=== PATIENT | male | born 1940 | race Caucasian/White ===

== ENCOUNTER 2019-09-19 21:49 | Emergency (ER) | payer MEDICARE, SELFPAY ==
[2019-09-19 21:50] VITALS: BP 161/87; PULSE 89; RESP 18; TEMP 36.7; O2SAT 95; BMI 32.3
--- NOTE | 2019-09-19 22:02 | ED.DCSUM_ITS ---
History of Present Illness Chief Complaint: Abd Pain Informant: Patient Onset: Today Current Severity: Mild Maximum Severity: Mild Narrative: Patient presents secondary to abdominal pain and inability to urinate or have a bowel movement. Patient states that he had a normal bowel movement yesterday. This morning he might have a bowel movement but was not able to pass any stool. He has also not been able to pass urine in the last 14 hours. Patient denies fever or chills. He states there was 1 time previously approximate 4 years ago that he had similar symptoms. They attributed it to patient taking pain medicat ion for a broken finger at that time. - Past Medical History (1) Hypertension Status: Chronic (2) High cholesterol Status: Chronic Past Medical History - Allergies and Home Meds Allergies/Adverse Reactions: Allergies No Known Allergies Allergy (Verified 09/19/19 21:52) Primary Care Physician: Leoncio Amato MD [Primary Care Provider] - Prior records reviewed: Yes Smoking Status: Never smoker Review of Systems General: Denies: Chills, Fever Eyes: Denies: Visual changes - bilaterally ENT: Denies: Bilateral ear pain Cardiovascular: Denies: Chest pain Respiratory: Denies: Dyspnea, Cough Gastrointestinal: Reports: Abdominal pain. Denies: Nausea, Vomiting, Diarrhea Genitourinary: Denies: Dysuria Musculoskeletal: Denies: Swelling, Extremity Pain Skin: Denies: Rash Neurological: Denies: Headache Hematologic: Denies: Easy bruising, Easy bleeding Allergy: Denies: Uticaria Physical Exam Vital Signs/Narrative: Vital Signs Temp Pulse Resp BP Pulse Ox 09/19/19 21:50 98.0 F 89 18 161/87 H 95 Inital Vital Signs reviewed: Yes General: Well nourished, Well developed Head: Normocephalic ENT: Moist mucous membranes Neck: Supple Cardiovascular: Regular rate, Regular rhythm Respiratory: No distress, CTA bilaterally Abdomen: Soft, Tender - Lower abdominal tenderness., Hypoactive bowel sounds. Negative for: Guarding Extremities: Nontender Skin: Normal color Neurological: Alert, Oriented x3 Psychological: Normal affect Diagnostic/Tx/Re-eval Laboratory Results 09/19/19 22:20 Urine Color Yellow Urine Clarity Clear Urine pH 6.5 Ur Specific [place] 1.010 Urine Protein Negative Urine Glucose (UA) Normal Urine Ketones Negative Urine Occult Blood Negative Urine Nitrite Negative Urine Bilirubin Negative Urine Urobilinogen Normal Ur Leukocyte Esterase Negative Urine RBC 0 SEEN Urine WBC 0 SEEN Ur Squamous Epith Cells 0 SEEN Urine Bacteria 0 SEEN Urine Mucus 0 SEEN - Medical Decision Making Bladder scan was performed at bedside and showed greater than 200 cc. Noriega catheter was placed without difficulty by nursing staff. He immediately had 1200 cc of urine drained. Urinalysis is unremarkable. Patient states he no longer has the sensation that he needs have a bowel movement. His medication list is reviewed. He does take Zyrtec but as an antihistamine this is not as likely as others to cause urinary retention. He denies taking Benadryl or any other medications recently. Leg bag will be provided and patient will follow-up Dr. Ferguson next week. ED Disposition - Plan for ED Patient: Disposition: Home or Assisted Living Diagnosis: Urinary retention Instructions: ED Urinary Retention Male Referrals: Leoncio Amato MD [Primary Care Provider] - Wei Ferguson MD [STAFF PHYSICIAN] - 3-5 Days
[2019-09-19 22:27] LABS: Bacteria 0 SEEN /hpf (None Seen); Mucous, Urine 0 SEEN /hpf (<or=2+); Red Blood Cells-Urine 0 SEEN /hpf (0-5); Squamous Epithelial Cells - UA 0 SEEN /hpf (0-5); White Blood Cells 0 SEEN /hpf (0-5)
[2019-09-19 22:32] LABS: Color, Urine Yellow (Yellow); Glucose, Dipstick Normal (Normal); Ketone-Dipstick Negative (Negative); Leukocyte Esterase-Dipstick Negative /ul (Negative); Nitrite-Dipstick Negative (Negative); Occult Blood-Urine Negative /ul (Negative); Protein-Dipstick Negative (Negative); Urine Bilirubin Dipstick Negative (Negative); Urine Clarity Clear (Clear); Urine Urobilinogen Normal (Normal); Urine pH 6.5 (5.0 - 8.0)
[2019-09-19 23:01] VITALS: BP 154/78; PULSE 81; RESP 17; O2SAT 98
== END 2019-09-19 23:05 | disposition home or self-care (01) ==
LOC: ED 23:04
PROVIDERS: Emergency Provider Emergency Medicine; PCP Family Medicine
DX: R33.9 Retention of urine, unspecified (principal); I10 Essential (primary) hypertension; E78.00 Pure hypercholesterolemia, unspecified
CPT/HCPCS: 51702; 81001; 99283

== ENCOUNTER 2024-11-03 09:42 | Emergency (ER) | payer MEDICARE, SELFPAY ==
[2024-11-03 09:43] VITALS: BP 126/71; PULSE 81; RESP 18; TEMP 36.7; O2SAT 97; BMI 32.6
[2024-11-03 09:45] VITALS: BP 126/71; PULSE 81; RESP 16; TEMP 36.7; O2SAT 97
--- NOTE | 2024-11-03 10:05 | EKG12_ITS ---
Test Reason : FLU LIKE SYMPTOMS Blood Pressure : */* mmHG Vent. Rate : 74 BPM Atrial Rate : 74 BPM P-R Int : 174 ms QRS Dur : 102 ms QT Int : 388 ms P-R-T Axes : 59 42 51 degrees QTcB Int : 430 ms Normal sinus rhythm Normal ECG Confirmed by REMEDIOS CERVANTES, JOSE DE JESUS ([id number]), assistant production editor EDSON LIRIANO ([id number]) on 11/05/2024 7:45:57 AM Referred By: REYNALDO Confirmed By: JOSE DE JESUS WHITTAKER MD
--- NOTE | 2024-11-03 10:13 | EX.ED.DYSGE1 ---
HPI History of Present Illness Chief Complaint: General Illness Narrative Narrative: 84-year-old male past medical history of hypertension, seasonal allergies, presents from urgent care at their direction for cough, shortness of breath, and upper respiratory infection type symptoms. He relates history that his symptoms began on Monday, 2 days ago. He started sneezing, and has occasional cough. He states that he began having watery eyes and rhinorrhea. He states that he attempted to treat those and go to bed. However, he developed a headache at 3:00 in the morning with more sinus congestion. He had to sleep upright. While his headache improved, he could not fall asleep. He has a nonproductive cough but no fever. He states that he has not been feeling well over the last 48 hours, he went to urgent care, and he states they asked him a few questions and sent him to the emergency department. No exacerbating or alleviating factors. [facility] Home Medications ?Medication ?Instructions ?Recorded ?Last Taken ?Type acetaminophen 500 mg tablet 500 mg PO TID PRN fever or pain 11/03/24 11/03/24 History aspirin 81 mg tablet,delayed 81 mg PO DAILY 11/03/24 11/03/24 History release (Adult Aspirin Regimen) atorvastatin 80 mg tablet 80 mg PO DAILY 11/03/24 11/03/24 History cetirizine 10 mg tablet (24Hour 10 mg PO DAILY 11/03/24 11/03/24 History Allergy) diltiazem HCl 180 mg 180 mg PO DAILY 11/03/24 11/03/24 History capsule,extended release 24 hr ezetimibe 10 mg tablet 10 mg PO DAILY 11/03/24 11/03/24 History hydrochlorothiazide 12.5 mg capsule 12.5 mg PO DAILY 11/03/24 11/03/24 History isosorbide mononitrate 30 mg 15 mg PO DAILY 11/03/24 11/03/24 History tablet,extended release 24 hr losartan 50 mg tablet 50 mg PO DAILY 11/03/24 11/03/24 History nirmatrelvir 300 mg (150 mg See Rx Instructions PO .COMPLEX 11/03/24 Unknown Rx x2)-ritonavir 100 mg tablet,dose #30 tabs pack (Paxlovid) triamcinolone acetonide 0.1 % 1 applic topical BID 11/03/24 11/02/24 History topical cream Allergy/AdvReac Type Severity Reaction Status Date / Time No Known Allergies Allergy Verified 11/03/24 09:46 Social History Smoking Status: Never smoker ROS ROS ED ROS Narrative Review of systems positive for sneezing, nasal congestion and rhinorrhea. Nonproductive cough. Mild shortness of breath. No chest pain, no leg swelling, no nausea or vomiting. He endorses lightheadedness that is intermittent as well. EXAM Physical Exam Narrative Exam Narrative: Afebrile. Vital signs noted. Nontoxic-appearing. Cardiovascular examination reveals regular rate and rhythm. Lungs are clear to auscultation bilaterally. Abdomen soft, nontender, without guarding or rebound. Positive bowel sounds. Neurological examination nonfocal, nonlateralizing. No appreciable pedal edema. HEENT examination grossly unremarkable, no purulent rhinorrhea. Const Vital Signs: 11/03/24 09:43 11/03/24 09:45 11/03/24 11:42 Temperature 98.1 F 98.1 F Temperature Source Oral Oral Pulse Rate 81 81 77 Respiratory Rate 18 16 19 H Blood Pressure 126/71 H 126/71 H 97/79 Blood Pressure Mean 89 89 85 Pulse Ox 97 97 97 Oxygen Delivery Method Room Air Room Air 11/03/24 12:01 Temperature 98 F Temperature Source Pulse Rate 76 Respiratory Rate 19 H Blood Pressure 103/59 L Blood Pressure Mean 73 Pulse Ox 97 Oxygen Delivery Method MDM MDM MDM Narrative Medical decision making narrative: Differential diagnosis includes but not limited to dehydration versus other electrolyte abnormality for his lightheadedness versus intravascular volume depletion. For his shortness of breath and cough, he may have more bronchitis versus pneumonia. I have low suspicion for pneumothorax because the history and physical does not support this. I also have lower suspicion for ACS. Is not having chest pain. EKG was obtained and interpreted by myself independently as normal sinus rhythm at 74 bpm without ectopy or acute ST changes. No STEMI. QTc normal at 430 ms. Chest x-ray will be obtained in 2 views as well as COVID, influenza, and RSV swab. I will check basic laboratories as well to check for anemia versus dehydration versus other electrolyte imbalance. I reviewed his laboratory work and he has normal white count of 6.1 with hemoglobin 12.2 and hematocrit 35.2, platelet count normal at 194. Electrolyte panel is significant for BUN of 29 and creatinine 1.68, glucose 98, LFTs show alk phos elevated at 144 which I think is nonspecific. Chest x-ray interpreted by myself independently shows no consolidation or pneumothorax. I reviewed the radiology report which confirms my independent interpretation but comments on vascular congestion. I added a BNP which is only slightly elevated to 281 but not consistent with florid CHF. I reviewed his respiratory swab and he has positive for COVID. I discussed with him the use of an antiviral as he is within 5 days. I wrote him a prescription for Paxlovid, but urged him to check with the pharmacist regarding any contraindications or drug to drug interactions. Otherwise, treatment be symptomatic with Tylenol or ibuprofen as needed for pain and fever, drink plenty of oral fluids, follow-up with primary care in 1 week if not improving. Return instructions to the emergency department were reviewed. Disposition is discharged home in stable condition. History & Record Review Discussion w/independent historian: Patient Lab Data Attestation: I reviewed the patient's lab results. Labs: Laboratory Results - last 24 hr 11/03/24 10:15 WBC 6.1 RBC 3.92 L Hgb 12.2 L Hct 35.2 L MCV 89.8 MCH 31.1 MCHC 34.7 RDW Std Deviation 46.3 H RDW Coeff of Stu 14.0 Plt Count 194 MPV 10.4 Immature Gran % (Auto) 0.300 Neut % (Auto) 63.3 Lymph % (Auto) 20.1 [place] % (Auto) 13.9 H Eos % (Auto) 1.3 Baso % (Auto) 1.1 H Absolute Neuts (auto) 3.9 Absolute Lymphs (auto) 1.23 Nucleated RBC % 0 Sodium 137 Potassium 3.4 Chloride 101 Carbon Dioxide 22.8 Anion Gap 13 BUN 29 H Creatinine 1.68 H Estim Creat Clear Calc 38.90 L Est GFR (MDRD) Non-Af 40 L BUN/Creatinine Ratio 17.4 Glucose 98 Calcium 8.9 Total Bilirubin 0.63 AST 20 ALT 17 Alkaline Phosphatase 144 H NT pro BNP II 281 Total Protein 7.1 Albumin 4.0 Globulin 3.2 Albumin/Globulin Ratio 1.3 Radiography Diagnostic Testing: Clinical Impression(s) from Imaging Studies Chest X-Ray 11/03/24 10:20 IMPRESSION: Findings compatible with CHF/volume overload. Reading Location: [facility] Discharge Plan Triage Chief Complaint: General Illness ED Provider: Teofilo Bragg Dx/Rx/DC Orders Clinical Impression: COVID, Viral syndrome Instructions: Coronavirus Disease 2019 (COVID-19): Caring for Yourself or Others, ED Viral Syndrome (Adult) Prescriptions: New Paxlovid 300 mg (150 mg x 2)-100 mg tablets,dose pack See Rx Instructions .ROUTE .COMPLEX Qty: 30 0RF Rx Instructions: take TWO 150 mg tablets of nirmatrelvir with ONE 100 mg tablet of ritonavir twice daily for 5 days No Action hydrochlorothiazide 12.5 mg capsule 12.5 mg PO DAILY atorvastatin 80 mg tablet 80 mg PO DAILY diltiazem HCl 180 mg capsule,extended release 24hr 180 mg PO DAILY ezetimibe 10 mg tablet 10 mg PO DAILY aspirin [Adult Aspirin Regimen] 81 mg tablet,delayed release (DR/EC) 81 mg PO DAILY losartan 50 mg tablet 50 mg PO DAILY isosorbide mononitrate 30 mg tablet extended release 24 hr 15 mg PO DAILY triamcinolone acetonide 0.1 % cream 1 applic topical BID cetirizine [24Hour Allergy] 10 mg tablet 10 mg PO DAILY acetaminophen 500 mg tablet 500 mg PO TID PRN (Reason: fever or pain) Primary Care Provider: Leoncio Amato Referrals: Leoncio Amato MD [Primary Care Provider] - 1 Week if not improving Activity Restrictions/Additional Instructions: Take Paxlovid as directed. Drink plenty of oral fluids. Tylenol or ibuprofen as needed for fever or pain. Follow-up with your primary care provider in 1 week if not improving. Return with increased difficulty breathing, new or worsening symptoms. Print Language: Ecuadorean Disposition Disposition: Home, Self Care Discharge Date/Time: 11/03/24 12:12
--- NOTE | 2024-11-03 10:20 | RAD_ITS ---
PROCEDURE: CHEST PA AND LATERAL 11/03/2024 REASON FOR EXAM: SHORTNESS OF BREATH, COUGH TECHNIQUE: CHEST PA AND LATERAL COMPARISON: None. FINDINGS: Hardware: None. Heart: Mild cardiomegaly with pulmonary vascular congestion. Mediastinum: There are atherosclerotic calcifications of the thoracic aorta. Lungs: Elevation of the left hemidiaphragm. Probable small left pleural effusion. No focal consolidation or pneumothorax. Bones: Degenerative changes are identified within the thoracic spine. RAD/Chest PA and Lateral IMPRESSION: Findings compatible with CHF/volume overload. Reading Location: [id number]
[2024-11-03 10:21] LABS: Absolute Lymphocyte Count 1.23 X10^3/uL (0.83-4.51); Absolute Neutrophil Count 3.9 X10^3/uL (2.0-7.7); Basophil# 0.07 X10^3/uL; Basophil% 1.1 % (0-1); Eosinophil# 0.08 X10^3/uL; Eosinophils% 1.3 % (0-5); Hematocrit 35.2 % (40-54); Hemoglobin 12.2 g/dL (13.0-16.5); Lymphocyte # 1.23 X10^3/ul (0.83-4.51); Lymphocyte % 20.1 % (19-41); Mean Corp Hgb Conc 34.7 g/dL (32-36); Mean Corpuscular Hgb 31.1 pg (27.0-32.0); Mean Corpuscular Volume 89.8 fL (80-94); Mean Platelet Vol. 10.4 fl (6.2-12.0); Monocyte# 0.85 X10^3/uL; Monocyte% 13.9 % (0-10); NRBC Flagged by Analyzer 0 % (0-5); Neutrophil # 3.87 X10^3/uL (2.7-7.7); Neutrophil % 63.3 % (47-70); Platelet Count 194 K/mm3 (150-450); RBC Distribution Width SD 46.3 fl (35.1-43.9); Red Blood Count 3.92 M/mm3 (4.6-6.2); White Blood Count 6.1 K/mm3 (4.4-11.0)
--- OUTSIDE RECORDS SUMMARY | 2024-11-03 10:23 | XMS RPT_ITS | CCD ---
Author Organization [facility] Care Team Providers Care Nurse Clinical Name Role Phone Leoncio Chavez MD Primary Care Provider PROVIDER, UNKNOWN Attending Unavailable PROVIDER, UNKNOWN Referring Unavailable PROVIDER, UNKNOWN Primary Care Unavailable PROVIDER, UNKNOWN Attending Unavailable PROVIDER, UNKNOWN Primary Care Unavailable PROVIDER, UNKNOWN Attending Unavailable PROVIDER, UNKNOWN Primary Care Unavailable Leoncio Chavez MD Primary Care Provider [phone] Haley DIRECTOR GEOTHERMAL OPERATIONS.Kedar HARRIS Unavailable Angy Luciano PA-C Unavailable Leoncio Chavez MD Primary Care Provider [phone] Haley DIRECTOR GEOTHERMAL OPERATIONS.Kedar HARRIS Unavailable Angy Luciano PA-C Unavailable JAMES QUICK Attending Unavailab LEONCIO Bourgeois Primary Care Unavailable LEONCIO CHAVEZ Referring Unavailable LEONCIO CHAVEZ Primary Care Unavailable KEDAR DE LEON Attending Unavailable LEONCIO CHAVEZ Primary Care Unavailable FLORENCIA VENTURA Attending Unavailable LEONCIO CHAVEZ Primary Care Unavailable ANGY LUCIANO Attending Unavailable LEONCIO CHAVEZ Primary Care Unavailable LEONCIO CHAVEZ Referring Unavailable LEONCIO CHAVEZ Primary Care Unavailable LEONCIO CHAVEZ Attending Unavailable LEONCIO CHAVEZ Primary Care Unavailable Allergies Allergy Classification Reported Allergen(s) Allergy Type Date of Onset Reaction(s) Facility (20 sources) Seasonal allergy; Translations: [SEASONAL ALLERGIES] Allergy to substance 2 Other: See Comments, Intolerance [facility] Work Phone: Medications Current Medications Medication Drug Class(es) Dates Sig (Normalized) Sig (Original) aspirin 81 mg delayed release oral tablet (20 sources) Platelet Aggregation Inhibitor, Nonsteroidal Anti-inflammatory Drug Start: 12-02-2020 take 1 tablet by mouth once daily aspirin, enteric coated (ASPIRIN, ENTERIC COATED) 81 mg EC tablet Take 1 tablet by mouth once daily. 12/02/2020 Active Comment on above: Take 1 tablet by aliyah th once daily. atorvastatin 80 mg oral tablet (20 sources) HMG-CoA Reductase Inhibitor Start: 06-07-2023 End: 06-08-2024 take 1 tablet by mouth once daily atorvastatin (LIPITOR) 80 mg tablet Take 1 tablet by mouth once daily. 90 tablet 3 06/08/2024 Active Start: 09-02-2022 take 1 tablet by aliyah th once daily atorvastatin (LIPITOR) 80 mg tablet Take 1 tablet by mouth once daily. 90 tablet 3 09/02/2022 Active Start: 12-02-2020 End: 11-18-2021 take 1 tablet by mouth once daily atorvastatin (LIPITOR) 80 mg tablet Indications: Mixed hyperlipidemia Take 1 tablet by mouth once daily. 90 tablet 3 11/19/2021 Active Comment on above: Take 1 tablet by aliyah once daily. cetirizine hydrochloride 10 mg oral tablet (20 sources) Histamine-1 Receptor Antagonist Start: 6 take 1 tablet by mouth once daily cetirizine (ZYRTEC) 10 mg tablet Take 1 tablet by mouth once daily. 90 tablet 2 12/01/2015 Active Comment on above: Take 1 tablet by aliyah once daily. 24 hr dilTIAZem hydrochloride 180 mg extended release oral capsule (20 sources) Calcium Channel Darrius Start: 5 take 1 capsule by mouth once daily dilTIAZem CD (CARDIZEM CD) 180 mg 24 hr capsule Take 1 capsule by mouth once daily. 90 capsule 1 06/08/2024 Active Start: 06-07-2023 End: 06-08-2024 take 1 capsule by mouth once daily dilTIAZem CD (CARDIZEM CD) 240 mg 24 hr capsule Take 1 capsule by mouth once daily. 90 capsule 3 06/07/2023 06/08/2024 Discontinued Start: 09-02-2022 take 1 capsule by mo [facility] once daily dilTIAZem CD (CARDIZEM CD) 240 mg 24 hr capsule Take 1 capsule by mouth once daily. 90 capsule 3 09/02/2022 Active Start: 12-02-2020 End: 11-18-2021 take 1 capsule by mouth once daily dilTIAZem CD (CARDIZEM CD) 240 mg 24 hr capsule Indications: Chronic diastolic CHF (congestive heart failure) (HCC) Take 1 capsule by mouth once daily. 90 capsule 3 11/19/2021 Active Comment on above: Take 1 capsule by mo [facility] once daily. ezetimibe 10 mg oral tablet (16 sources) Dietary Cholesterol Absorption Inhibitor Start: 2023 End: 2024 take 1 tablet by mouth once daily ezetimibe (ZETIA) 10 mg tablet Indications: Mixed hyperlipidemia Take 1 tablet by mouth once daily. 90 tablet 1 06/08/2024 Active Comment on above: Take 1 tablet by [facility] once daily. hydroCHLOROthiazide 12.5 mg oral capsule (20 sources) Thiazide Diuretic Start: 2023 End: 2024 take 1 capsule by mouth once daily hydroCHLOROthiazide 12.5 mg capsule Take 1 capsule by mouth once daily. 90 capsule 3 07/23/2024 Active Start: 09-02-2022 take 1 capsule by [facility] once daily hydroCHLOROthiazide 12.5 mg capsule Take 1 capsule by mouth once daily. 90 capsule 3 09/02/2022 Active Start: 12-02-2020 End: 11-18-2021 take 1 capsule by mouth once daily hydroCHLOROthiazide (HYDRODIURIL, ESIDRIX) 12.5 mg capsule Indications: Chronic diastolic CHF (congestive heart failure) (HCC) Take 1 capsule by mouth once daily. 90 capsule 3 11/19/2021 Active Comment on above: Take 1 capsule by [facility] once daily. hypromellose 3 mg/ml ophthalmic solution (20 sources) Start: 03-21-2012 artificial tear, Hypromellose, (GENTEAL MODERATE) 0.3 % Drop Use 1 Drop in both eyes as needed. 0 03/21/2012 Active Start: 03-21-2012 artificial tea r, Hypromellose, (GENTEAL MODERATE) 0.3 % Drop Use 1 Drop in both eyes as needed. 0 03/21/2012 Active Comment on above: Use 1 Drop in both e yes as needed. 24 hr isosorbide mononitrate 30 mg extended release oral tablet (17 sources) Nitrate Vasodilator Start: 4 End: take 0.5 tablet by mouth once daily isosorbide mononitrate ER (IMDUR) 30 mg 24 hr tablet Indications: Essential hypertension Take 0.5 tablets by mouth once daily. 45 tablet 3 06/08/2024 Active Comment on above: Take 0.5 tablets by mouth once daily. ketoconazole 20 mg/ml medicated shampoo (11 sources) Azole Antifungal Start: End: ketoconazole (NIZORAL) 2 % shampoo apply to affected area once daily if needed 120 mL 3 12/30/2022 12/22/2023 Discontinued Start: 10-15-2021 End: 10-15-2022 ketoconazole (NIZORAL) 2 % s hampoo apply to affected area once daily if needed 120 mL 3 10/15/2021 10/15/2022 Active Comment on above: apply to affected ar ea once daily if needed losartan potassium 50 mg oral tablet (20 sources) Angiotensin 2 Receptor Darrius Start: 07-05-2024 take 1 tablet by mouth once daily losartan (COZAAR) 50 mg tablet Take 1 tablet by mouth once daily. 90 tablet 1 07/05/2024 Active Start: 06-07-2023 End: 07-05-2024 take 1 tablet by mouth once daily losartan (COZAAR) 100 mg tablet Take 1 tablet by mouth once daily. 90 tablet 3 06/08/2024 07/05/2024 Discontinued (Adjust Sig - Block E-Cancel) Start: 09-02-2022 take 1 tablet by aliyah th once daily losartan (COZAAR) 100 mg tablet Take 1 tablet by mouth once daily. 90 tablet 3 09/02/2022 Active Start: 12-02-2020 End: 11-18-2021 take 1 tablet by mouth once daily losartan (COZAAR) 100 mg tablet Indications: Chronic diastolic CHF (congestive heart failure) (HCC) Take 1 tablet by mouth once daily. 90 tablet 3 11/19/2021 Active Comment on above: Take 1 tablet by aliyah th once daily. omega-3 fatty acids 1,000 mg cap (20 sources) Start: 06-20-2018 take 1 capsule by mouth once daily omega-3 fatty acids 1,000 mg cap Take 1 capsule by mouth once daily. 06/20/2018 Active Start: 06-20-2018 take 1 capsule by mo [facility] once daily omega-3 fatty acids 1,000 mg cap Take 1 capsule by mouth once daily. 0 06/20/2018 Active Comment on above: Take 1 capsule by mo [facility] once daily. triamcinolone acetonide 1 mg/ml topical cream (1 source) Corticosteroid Start: 10-28-2024 End: 11-11-2024 triamcinolone acetonide (KENALOG) 0.1 % cream Apply to affected area two times a day for 14 days. 30 g 10/28/2024 11/11/2024 Active Completed/Discontinued Medications Medication Drug Class(es) Dates Sig (Normalized) Sig (Original) ibuprofen 200 mg oral tablet (18 sources) Nonsteroidal Anti-inflammatory Drug Start: 07-14-2015 End: 06-11-2024 take 200-400 mg by mouth every six hours as needed ibuprofen (MOTRIN) 200 mg tablet Take 1-2 tablets by mouth every 6 hours as needed for Pain (Take with food.). 0 07/14/2015 06/11/2024 Discontinued (Clinical Decision) Comment on above: Take 1-2 tablets by mouth every 6 hours as needed for Pain (Take with food.). Problems Active Problems Problem Classification Problem Date Documented Da te Episodic/Chronic Allergic reactions (1 source) Irritant contact dermatitis due to plant; Translations: [Irritant contact dermatitis due to plants, except food] 10-28-2024 Episodic Chronic kidney disease (7 sources) Chronic kidney disease stage 3A ; Translations: [Stage 3a chronic kidney disease (HCC)] Onset: 06-11-2024 06-11-2024 Chronic Congestive heart failure; nonhypertensive (20 sources) Chronic diastolic heart failure; Translations: [Chronic diastolic (congestive) heart failure] Onset: 09-03-2019 09-03-2019 Chronic Coronary atherosclerosis and other heart disease (20 sources) Coronary atherosclerosis; Translations: [Atherosclerotic heart disease of [place] coronary artery without angina pectoris] Onset: 05-27-2015 06-24-2019 Chronic Deficiency and other anemia (20 sources) Anemia of chronic disease; Translations: [Anemia in other chronic diseases classified elsewhere] Onset: 10-16-2021 Chronic Deficiency and other anemia (1 source) Anemia in other chronic diseases classified elsewhere; Translations: [Anemia of chronic disease] Onset: 10-16-2021 Chronic Disorders of lipid metabolism (20 sources) Mixed hyperlipidemia; Translations: [Mixed hyperlipidemia] Onset: 12-23-2019 Resolved: 12-23-2019 12-23-2019 Chronic Essential hypertension (20 sources) Essential hypertension; Translations: [Essential (primary) hypertension] Onset: 05-27-2015 05-27-2015 Chronic Hyperplasia of prostate (20 sources) Benign prostatic hyperplasia; Translations: [Benign prostatic hyperplasia without lower urinary tract symptoms] Onset: 05-27-2015 07-07-2015 Chronic Other circulatory disease (1 source) Abnormal foot pulse; Translations: [Other specified symptoms and signs involving the circulatory and respiratory systems] 06-23-2023 Episodic Other diseases of kidney and ureters (1 source) Renal impairment; Translations: [Disorder of kidney and ureter, unspecified] 11-28-2022 Episodic Other ear and sense organ disorders (1 source) Impacted cerumen of bilateral ears; Translations: [Impacted cerumen, bilateral] Episodic Other inflammatory condition of skin (20 sources) Rosacea; Translations: [Rosacea, unspecified] 05-31-2016 Chronic Other inflammatory condition of skin (20 sources) Pityriasis simplex; Translations: [Seborrhea capitis] 05-31-2016 Episodic Other nutritional; endocrine; and metabolic disorders (17 sources) Obese class II; Translations: [Obesity, unspecified] Onset: 06-07-2023 06-07-2023 Chronic Other nutritional; endocrine; and metabolic disorders (1 source) Obesity, unspecified; Translations: [Obesity, Class II, BMI 35-39.9] Onset: 06-07-2023 Chronic Other nutritional; endocrine; and metabolic disorders (1 source) Weight gain; Translations: [Abnormal weight gain] Episodic Other skin disorders (1 source) Ingrowing nail of toe of left foot; Translations: [Ingrowing nail] 06-08-2024 Episodic Other upper respiratory disease (20 sources) Chronic rhinitis; Translations: [Chronic rhinitis] Onset: 08-27-2012 05-27-2015 Chronic Residual codes; unclassified (20 sources) Obstructive sleep apnea syndrome; Translations: [Obstructive sleep apnea (adult) (pediatric)] 12-23-2019 Chronic Residual codes; unclassified (2 sources) Obstructive sleep apnea (adult) (pediatric); Translations: [Obstructive sleep apnea] Onset: 12-23-2019 Chronic Past or Other Problems Problem Classification Problem Date Documented Da te Episodic/Chronic Administrative/social admission (20 sources) Advance directive discussed with patient; Translations: [Other specified counseling] Onset: 05-27-2022 Episodic Diabetes mellitus without complication (20 sources) High hemoglobin A1c level; Translations: [Other abnormal glucose] Onset: 06-20-2018 Resolved: 06-08-2024 06-20-2018 Episodic Hemorrhoids (20 sources) External hemorrhoids; Translations: [Residual hemorrhoidal skin tags] Onset: 12-20-2018 12-23-2019 Episodic Immunizations and screening for infectious disease (1 source) Encounter for immunization; Translations: [Encounter for immunization] Onset: 06-08-2024 Episodic Other aftercare (20 sources) Patient encounter status; Translations: [Other joint terminal attack controller (current) drug therapy] Onset: 06-30-2020 06-30-2020 Episodic Other aftercare (1 source) Other joint terminal attack controller (current) drug therapy; Translations: [Medication management] Onset: 06-30-2020 Episodic Other circulatory disease (1 source) Other specified symptoms and signs involving the circulatory and respiratory systems; Translations: [Decreased pulses in feet] Onset: 06-09-2023 Episodic Other lower respiratory disease (1 source) Other forms of dyspnea; Translations: [RAMOS (dyspnea on exertion)] Onset: 06-09-2023 Episodic Other male genital disorders (20 sources) Disorder of prostate; Translations: [Disorder of prostate, unspecified] Onset: 05-27-2015 05-27-2015 Episodic Other screening for suspected conditions (not mental disorders or infectious disease) (20 sources) Raised prostate specific antigen; Translations: [Elevated prostate specific antigen [PSA]] Onset: 06-08-2015 12-23-2019 Episodic Other upper respiratory disease (12 sources) Allergic rhinitis; Translations: [Allergic rhinitis, unspecified] Resolved: 08-27-2012 08-27-2012 Chronic Residual codes; unclassified (10 sources) Finding of systemic arterial pressure; Translations: [Other general symptoms and signs] Onset: 01-30-2024 01-30-2024 Episodic Screening and history of mental health and substance abuse codes (20 sources) Ex-smoker; Translations: [Personal history of nicotine dependence] Onset: 12-20-2018 12-20-2018 Episodic Results Test Name Value Interpretation Reference Range Facility [facility] 10-28-2024 CNOV Office Visit (FAMPWS ) YVONNE JONES ([id number]) 1940 Date Time Provider Department 10/28/24 3:00 PM FLORENCIA VENTURA During your visit today, we recorded the following information about you: Pulse Respiration Blood pressure Weight 71/minute 18/minute 96/56 100.7 kg Florencia Ventura APRN.SYSTEMS TRAINER 10/28/2024 3:29 PM Signed 10/28/2024 Patient presents with: Rash: To left arm x2 weeks Recording using [employer] software for draft documentation of the visit was discussed with the patient/authorized technical service representative; all questions welcomed and answered. Patient/authorized technical service representative agreed to proceed SUBJECTIVE: This is a 84 year old that is here today for Above Complaints.. Rash: - Rash on the left inner arm, onset 2 weeks ago. - Initially localized, has spread about half an inch in all directions. - Described as feeling like a sunburn. - Some areas formed vesicles that drained clear fluid. - No known sensitivity to poison yanique; denies sunburn. - Rash began on a Monday morning, with additional lesions appearing the following day and subsequently. - Denies applying any topical treatments. - Denies fever or chills. - No new medications started; began taking Benadryl a week ago without improvement. - No rash on the face, eyes, or head. - Denies exposure to new plants or substances; has been mowing the lawn every other day. 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 Breana Linder Diastolic dysfunction 2012 Elevated hemoglobin A1c 06/20/2018 Elevated PSA 06/08/2015 Essential hypertension Ex-smoker 12/20/2018 Started around age 17 up to 2 cigs quit around 18. External hemorrhoid 12/20/2018 Medicare annual wellness visit, subsequent 12/02/2016 Medicare part B: 04/21/2007 last done: 12/23/2019 Mixed hyperlipidemia Obesity, Class II, BMI 35-39.9 06/07/2023 Obstructive sleep apnea Rosacea ALLERGIES Seasonal Allergies MEDICATIONS Current Outpatient Medications Medication Sig triamcinolone acetonide (KENALOG) 0.1 % cream Apply to affected area two times a day for 14 days. hydroCHLOROthiazide 12.5 mg capsule Take 1 capsule by mouth once daily. losartan (COZAAR) 50 mg tablet Take 1 tablet by mouth once daily. ezetimibe (ZETIA) 10 mg tablet Take 1 tablet by mouth once daily. isosorbide mononitrate ER (IMDUR) 30 mg 24 hr tablet Take 0.5 tablets by mouth once daily. dilTIAZem CD (CARDIZEM CD) 180 mg 24 hr capsule Take 1 capsule by mouth once daily. atorvastatin (LIPITOR) 80 mg tablet Take 1 tablet by mouth once daily. aspirin, enteric coated (ASPIRIN, ENTERIC COATED) 81 mg EC tablet Take 1 tablet by mouth once daily. omega-3 fatty acids 1,000 mg cap Take 1 capsule by mouth once daily. cetirizine (ZYRTEC) 10 mg tablet Take 1 tablet by mouth once daily. artificial tear, Hypromellose, (GENTEAL MODERATE) 0.3 % Drop Use 1 Drop in both eyes as needed. No current facility-administered medications for this visit. Medications and allergies reviewed by this provider. SOCIAL HISTORY Social History Tobacco Use Smoking status: Former Current packs/day: 0.00 Types: Cigarettes Quit date: 03/21/1962 Years since quittin.6 Smokeless tobacco: Never Tobacco comments: total of a dozen cigarettes Vaping Use Vaping status: Never Used Substance Use Topics Alcohol use: Yes Comment: very rare - glass of wine, several times per year Drug use: No REVIEW OF SYSTEMS OBJECTIVE: BP 96/56 Pulse 71 Resp 18 Wt 100.7 kg (222 lb) SpO2 93% BMI 33.26 kg/m? . Vital signs reviewed by this provider. GENERAL: NAD, alert and oriented SKIN: Erythematous rash to left AC area and left radial wrist. Also has scattered scabbed areas to forearm and upper arm. No current vesicle formation, drainage or excessive warmth to areas DTaP,Tdap,Td Vaccine(1 - Tdap) due on 06/08/2025 RSV Vaccine(1 - 1-dose 75+ series) due on 06/08/2025 Shingrix Vaccine(1 of 2) due on 06/08/2025 Depression Screening due on 12/21/2024 Anxiety Screening due on 12/21/2024 LDL Cholesterol due on 06/08/2025 Diabetes Screening due on 06/08/2027 Influenza Vaccine Completed Advance Directive Discussion Completed Covid-19 Vaccine Completed Pneumococcal Vaccine: 50+ Completed Colorectal Cancer Screening Discontinued 1. Irritant contact dermatitis due to plants, except food (L24.7) - Erythematous rash on the left inner arm, with scattered scabbed areas consistent with possible plant dermatitis, such as poison yanique or poison oak. - Initiated top (more content not included)... Normal [facility] YVONNE JONES ([id number]) 1940 M Date Time Provider Department 10/28/24 PODLOGARFLORENCIA During your visit today, we recorded the following information about you: Alfreda Cervantes, RN 10/28/2024 1:53 PM Signed Pt called in and reports he has had a rash on his L elbow x2 weeks. Pt reports he has been taking Benadryl for it. He states he has 3 main patches one on elbow about 2 in x 3 in, forearm 3 in x 1 1/2 in, and by wrist 1 in x 1 in. He states they are red blotches and there are red bumps that are broken open sores that briefly seeped serous fluid. Pt states the arm is mildly warm and itchy. He states he has been mowing the yard every other day, but it started before that. Pt denies starting any new medications or foods recently. Pt scheduled with Florencia Ventura HIDE TRIMMER today at 3 pm. Alfreda Cervantes RN Allergies As of Date: 10/28/2024 Noted Allergy Reaction SEASONAL ALLERGIES 03/21/2012 5 - Intolerance Comments: Testing 06/18/12 negative. Patient still bothered by allergens. grass, pollen, ragweed Date Reviewed: 07/05/2024 Reviewed by: Franck Reyes LPN - Fully Assessed Reason for Visit: Appointment [186] Patient Update [1234] Prescriptions as of 10/28/2024 - hydroCHLOROthiazide 12.5 mg capsule Take 1 capsule by mouth once daily. - losartan (COZAAR) 50 mg tablet Take 1 tablet by mouth once daily. - ezetimibe (ZETIA) 10 mg tablet Take 1 tablet by mouth once daily. - isosorbide mononitrate ER (IMDUR) 30 mg 24 hr tablet Take 0.5 tablets by mouth once daily. - dilTIAZem CD (CARDIZEM CD) 180 mg 24 hr capsule Take 1 capsule by mouth once daily. - atorvastatin (LIPITOR) 80 mg tablet Take 1 tablet by mouth once daily. - aspirin, enteric coated (ASPIRIN, ENTERIC COATED) 81 mg EC tablet Take 1 tablet by mouth once daily. - omega-3 fatty acids 1,000 mg cap Take 1 capsule by mouth once daily. - cetirizine (ZYRTEC) 10 mg tablet Take 1 tablet by mouth once daily. - artificial tear, Hypromellose, (GENTEAL MODERATE) 0.3 % Drop Use 1 Drop in both eyes as needed. Problem List As Of Date 10/28/2024 Noted Resolved Mixed hyperlipidemia [E78.2] 12/23/2019 Essential hypertension [I10] Allergic rhinitis [J30.9] 08/27/2012 Rosacea [L71.9] Dandruff [L21.0] Chronic rhinitis [J31.0] 08/27/2012 Chronic diastolic CHF (congestive heart failure* Coronary artery disease due to lipid rich plaqu*05/27/2015 Benign non-nodular prostatic hyperplasia withou*05/27/2015 Disorder of prostate [N42.9] 05/27/2015 Elevated PSA [R97.20] 06/08/2015 Obstructive sleep apnea [G47.33] Medicare annual wellness visit, subsequent [Z00*12/02/2016 Elevated hemoglobin A1c [R73.09] 06/20/2018 Ex-smoker [Z87.891] 12/20/2018 External hemorrhoid [K64.4] 12/20/2018 Mixed hyperlipidemia [E78.2] Medication management [Z79.899] 06/30/2020 Anemia of chronic disease [D63.8] 10/16/2021 Advance directive discussed with patient [Z71.8*05/27/2022 Obesity, Class II, BMI 35-39.9 [E66.812] 06/07/2023 Prediabetes [R73.03] 01/30/2024 06/08/2024 Abnormal nuclear stress test [R94.39] 01/30/2024 Abnormal ankle brachial index (DIVYA) [R68.89] 01/30/2024 Stage 3a chronic kidney disease (HCC) [N18.31] 06/11/2024 Encounter Status:Closed by ALFREDA CERVANTES on 10/28/24 [facility] YVONNE JONES ([id number]) 1940 M Date Time Provider Department 08/02/24 ANGY LUCIANO [facility] During your visit today, we recorded the following information about you: Angy Luciano PA-C 08/02/2024 11:32 AM Signed Please check with patient on what his BP has been running. Alfreda Cervantes, MIGUEL 08/02/2024 12:09 PM Signed Called and left a detailed voicemail notifying patient of providers message. Clinic phone number was left for the patient to call and answer providers question. Alfreda Cervantes, Tammi Alfaro RN 08/02/2024 12:12 PM Signed Patient calls back and states that BP has been running 130/70. MIGUEL Otto Rayanne, PA-C 08/02/2024 12:21 PM Signed Noted. Allergies As of Date: 08/02/2024 Noted Allergy Reaction SEASONAL ALLERGIES 03/21/2012 5 - Intolerance Comments: Testing 06/18/12 negative. Patient still bothered by allergens. grass, pollen, ragweed Date Reviewed: 07/05/2024 Reviewed by: Franck Reyes LPN - Fully Assessed Reason for Visit: Patient Update [1234] Prescriptions as of 08/02/2024 - hydroCHLOROthiazide 12.5 mg capsule Take 1 capsule by mouth once daily. - losartan (COZAAR) 50 mg tablet Take 1 tablet by mouth once daily. - ezetimibe (ZETIA) 10 mg tablet Take 1 tablet by mouth once daily. - isosorbide mononitrate ER (IMDUR) 30 mg 24 hr tablet Take 0.5 tablets by mouth once daily. - dilTIAZem CD (CARDIZEM CD) 180 mg 24 hr capsule Take 1 capsule by mouth once daily. - atorvastatin (LIPITOR) 80 mg tablet Take 1 tablet by mouth once daily. - aspirin, enteric coated (ASPIRIN, ENTERIC COATED) 81 mg EC tablet Take 1 tablet by mouth once daily. - omega-3 fatty acids 1,000 mg cap Take 1 capsule by mouth once daily. - cetirizine (ZYRTEC) 10 mg tablet Take 1 tablet by mouth once daily. - artificial tear, Hypromellose, (GENTEAL MODERATE) 0.3 % Drop Use 1 Drop in both eyes as needed. Problem List As Of Date 08/02/2024 Noted Resolved Mixed hyperlipidemia [E78.2] 12/23/2019 Essential hypertension [I10] Allergic rhinitis [J30.9] 08/27/2012 Rosacea [L71.9] Dandruff [L21.0] Chronic rhinitis [J31.0] 08/27/2012 Chronic diastolic CHF (congestive heart failure* Coronary artery disease due to lipid rich plaqu*05/27/2015 Benign non-nodular prostatic hyperplasia withou*05/27/2015 Disorder of prostate [N42.9] 05/27/2015 Elevated PSA [R97.20] 06/08/2015 Obstructive sleep apnea [G47.33] Medicare annual wellness visit, subsequent [Z00*12/02/2016 Elevated hemoglobin A1c [R73.09] 06/20/2018 Ex-smoker [Z87.891] 12/20/2018 External hemorrhoid [K64.4] 12/20/2018 Mixed hyperlipidemia [E78.2] Medication management [Z79.899] 06/30/2020 Anemia of chronic disease [D63.8] 10/16/2021 Advance directive discussed with patient [Z71.8*05/27/2022 Obesity, Class II, BMI 35-39.9 [E66.812] 06/07/2023 Prediabetes [R73.03] 01/30/2024 06/08/2024 Abnormal nuclear stress test [R94.39] 01/30/2024 Abnormal ankle brachial index (DIVYA) [R68.89] 01/30/2024 Stage 3a chronic kidney disease (HCC) [N18.31] 06/11/2024 Encounter Status:Closed by ANGY MADDEN on 08/02/24 [facility] CNOVon 07-05-2024 CNOV Office Visit (FAMPWS ) YVONNE JONES ([id number]) 1940 M Date Time Provider Department 07/05/24 8:00 AM ANGY LUCIANO FAMPWS During your visit today, we recorded the following information about you: Temperature Pulse Respiration Blood pressure 97.5 degrees 71/minute 18/minute 96/53 Weight 101.6 kg Angy Luciano PA-C 07/05/2024 8:44 AM Signed Chief Complaint Patient presents with: Follow Up: Blood pressure HPI Yvonne Farley Godfrey is a 84 year old male who presents here today for Above Complaints.. At last visit patient's diltiazem was decreased to 180mg a day due to low bp readings. Patient does not check his bp at home. Last 6 Encounter BP Readings: Date: BP: 07/05/2024 96/53 06/08/2024 98/58 01/30/2024 118/66 12/22/2023 108/62 08/30/2023 124/58 06/23/2023 124/68 Past medical history, appointments, medications, allergies reviewed. Previous Medical History PAST MEDICAL HISTORY Diagnosis Date Advance directive discussed with patient 05/27/2022 Discussed 05/2022: Packets given Anemia of chronic disease 10/16/2021 Benign non-nodular prostatic hyperplasia without lower urinary tract symptoms 05/27/2015 Chronic diastolic CHF (congestive heart failure) (HCC) Chronic rhinitis 08/27/2012 Coronary artery disease due to lipid rich plaque 05/27/2015 left Cx, sees Dr. Breana Linder Diastolic dysfunction 2012 Elevated hemoglobin A1c 06/20/2018 Elevated PSA 06/08/2015 Essential hypertension Ex-smoker 12/20/2018 Started around age 17 up to 2 cigs quit around 18. External hemorrhoid 12/20/2018 Medicare annual wellness visit, subsequent 12/02/2016 Medicare part B: 04/21/2007 last done: 12/23/2019 Mixed hyperlipidemia Obesity, Class II, BMI 35-39.9 06/07/2023 Obstructive sleep apnea Rosacea Previous Surgical History PAST SURGICAL HISTORY Procedure Laterality Date COLONOSCOPY 1997 neg COLSC FLX W/REMOVAL LESION BY HOT BX FORCEPS 08/14/15 hyperplastic polyp - 10 year follow up PAST SURGICAL HISTORY OF Right 2016 ring finger Rt Fx repair Family History FAMILY HISTORY Problem Relation Age of Onset Stroke Mother 92 other (hypotension) Mother Ischemic Heart Disease Father 59 [place] Cancer Father skin cancer Ischemic Heart Disease Paternal Grandfather Ischemic Heart Disease Paternal Uncle 3 uncles Colon Cancer No Family History Prostate Cancer No Family History Alzheimer's Disease No Family History Patient Allergies ALLERGIES Allergen Reactions Seasonal Allergies Intolerance Testing 06/18/12 negative. Patient still bothered by allergens. grass, pollen, ragweed Current Medications Current Outpatient Medications on File Prior to Visit Medication Sig ezetimibe (ZETIA) 10 mg tablet Take 1 tablet by mouth once daily. isosorbide mononitrate ER (IMDUR) 30 mg 24 hr tablet Take 0.5 tablets by mouth once daily. losartan (COZAAR) 100 mg tablet Take 1 tablet by mouth once daily. dilTIAZem CD (CARDIZEM CD) 180 mg 24 hr capsule Take 1 capsule by mouth once daily. atorvastatin (LIPITOR) 80 mg tablet Take 1 tablet by mouth once daily. hydroCHLOROthiazide 12.5 mg capsule Take 1 capsule by mouth once daily. aspirin, enteric coated (ASPIRIN, ENTERIC COATED) 81 mg EC tablet Take 1 tablet by mouth once daily. omega-3 fatty acids 1,000 mg cap Take 1 capsule by mouth once daily. cetirizine (ZYRTEC) 10 mg tablet Take 1 tablet by mouth once daily. artificial tear, Hypromellose, (GENTEAL MODERATE) 0.3 % Drop Use 1 Drop in both eyes as needed. No current facility-administered medications on file prior to visit. Social History Social History Tobacco Use Smoking status: Former Current packs/day: 0.00 Types: Cigarettes Quit date: 03/21/1962 Years since quittin.3 Smokeless tobacco: Never Tobacco comments: total of a dozen cigarettes Vaping Use Vaping status: Never Used Substance Use Topics Alcohol use: Yes Comment: very rare - glass of wine, several times per year Drug use: No Review of Symptoms REVIEW OF SYSTEMS GENERAL: No weight loss, malaise or fevers RESPIRATORY: Negative for cough, hemoptysis, wheezing, COPD, dyspnea or shortness of breath CARDIOVASCULAR: Negative for chest pain, leg swelling, hypertension, CHF or palpitations EXAM: BP 96/53 (BP Site: Left Arm, BP Position: Sitting, BP Cuff Size: Regular Adult) Pulse 71 Temp 36.4 ?C (97.5 ?F) Resp 18 Wt 101.6 kg (224 lb) SpO2 98% BMI 33.56 kg/m? General Appearance: Well appearing, alert, in no acute distress, well-hydrated, well nourished.. Health Maintenance List DTaP,Tdap,Td Vaccine(1 - Tdap) due on 06/08/2025 RSV Vaccine(1 - 1-dose 75+ series) due on 06/08/2025 Shingrix Vaccine(1 of 2) due on 06/08/2025 Depression Screening due on 12/21/2024 Anxiety Screening due on 12/21/2024 LDL Cholesterol due on 06/08/2025 Diabetes Screening due on 06/08/2027 I (more content not included)... [facility] YVONNE JONES ([id number]) 1940 M Date Time Provider Department 06/11/24 [facility] During your visit today, we recorded the following information about you: Leoncio Chavez MD 06/11/2024 7:39 PM Signed Let patient know his A1c for diabetes screening is improved at 5.9%. goal is to see less than 5.6%. cont to work on reduced sugars and sweats in diet. His electrolyte panel was ok except his kidnies continue to show stage 3 chronic kidney disease but better then 5 months ago. Advise him to make sure he avoids taking Ibuprofen, Motrin, Advil, Naproxen and Aleve since these can make kidney functions worse. Lipid panel, prostate lab and UA were ok. Franck Reyes LPN 06/12/2024 8:40 AM Signed Patient notified of results and provider's instructions. Patient verbalizes understanding. Franck Reyes LPN Allergies As of Date: 06/11/2024 Noted Allergy Reaction SEASONAL ALLERGIES 03/21/2012 5 - Intolerance Comments: Testing 06/18/12 negative. Patient still bothered by allergens. grass, pollen, ragweed Date Reviewed: 06/08/2024 Reviewed by: Leoncio Chavez MD - Fully Assessed Reason for Visit: Results [95] Primary Visit Diagnosis:Stage 3a chronic kidney disease (HCC) [N18.31] Prescriptions as of 06/12/2024 - ezetimibe (ZETIA) 10 mg tablet Take 1 tablet by mouth once daily. - isosorbide mononitrate ER (IMDUR) 30 mg 24 hr tablet Take 0.5 tablets by mouth once daily. - losartan (COZAAR) 100 mg tablet Take 1 tablet by mouth once daily. - dilTIAZem CD (CARDIZEM CD) 180 mg 24 hr capsule Take 1 capsule by mouth once daily. - atorvastatin (LIPITOR) 80 mg tablet Take 1 tablet by mouth once daily. - hydroCHLOROthiazide 12.5 mg capsule Take 1 capsule by mouth once daily. - aspirin, enteric coated (ASPIRIN, ENTERIC COATED) 81 mg EC tablet Take 1 tablet by mouth once daily. - omega-3 fatty acids 1,000 mg cap Take 1 capsule by mouth once daily. - cetirizine (ZYRTEC) 10 mg tablet Take 1 tablet by mouth once daily. - artificial tear, Hypromellose, (GENTEAL MODERATE) 0.3 % Drop Use 1 Drop in both eyes as needed. Medication notes this encounter IBUPROFEN 200 MG TABLET >> Leoncio Chavez MD 06/11/2024 7:38 PM CKD 3a Problem List As Of Date 06/11/2024 Noted Resolved Mixed hyperlipidemia [E78.2] 12/23/2019 Essential hypertension [I10] Allergic rhinitis [J30.9] 08/27/2012 Rosacea [L71.9] Dandruff [L21.0] Chronic rhinitis [J31.0] 08/27/2012 Chronic diastolic CHF (congestive heart failure* Coronary artery disease due to lipid rich plaqu*05/27/2015 Benign non-nodular prostatic hyperplasia withou*05/27/2015 Disorder of prostate [N42.9] 05/27/2015 Elevated PSA [R97.20] 06/08/2015 Obstructive sleep apnea [G47.33] Medicare annual wellness visit, subsequent [Z00*12/02/2016 Elevated hemoglobin A1c [R73.09] 06/20/2018 Ex-smoker [Z87.891] 12/20/2018 External hemorrhoid [K64.4] 12/20/2018 Mixed hyperlipidemia [E78.2] Medication management [Z79.899] 06/30/2020 Anemia of chronic disease [D63.8] 10/16/2021 Advance directive discussed with patient [Z71.8*05/27/2022 Obesity, Class II, BMI 35-39.9 [E66.812] 06/07/2023 Prediabetes [R73.03] 01/30/2024 06/08/2024 Abnormal nuclear stress test [R94.39] 01/30/2024 Abnormal ankle brachial index (DIVYA) [R68.89] 01/30/2024 Stage 3a chronic kidney disease (HCC) [N18.31] 06/11/2024 Medications Discontinued During This Encounter Prescriptions - ibuprofen (MOTRIN) 200 mg tablet (Discontinued) Take 1-2 tablets by mouth every 6 hours as needed for Pain (Take with food.). Encounter Status:Closed by FRANCK REYES on 06/12/24 Normal [facility] Urinalysis complete panel (U )on 06-10-2024 Bacteria LM.HPF (Urine sed) [#/Area] Negative Normal Negative [facility] Comment on above: Order Comment: Speci men Type: URINE SPECIMENOrdering Facility: [facility] Address: [address] [place] [address] Performed By: #### 2 4356-8 ####[facility] LABIA [id number] [place] [address] [place] Bilirubin Ql (U) Negative Normal Negative [facility] Comment on above: Order Comment: Speci men Type: URINE SPECIMENOrdering Facility: [facility] Address: [address] [place] [address] Performed By: #### 2 4356-8 ####[facility] LABCLIA [id number] [place] [address] [place] Clarity (Unsp spec) Clear Normal Clear [facility] Comment on above: Order Comment: Speci men Type: URINE SPECIMENOrdering Facility: [facility] Address: [address] [place] [address] Performed By: #### 2 4356-8 ####[facility] LABCLIA [id number] [place] [address] [place] Color (U) Yellow Normal Yellow [facility] Comment on above: Order Comment: Speci men Type: URINE SPECIMENOrdering Facility: [facility] Address: [address] [place] [address] Performed By: #### 2 4356-8 ####[facility] LABCLIA [id number] [place] [address] [place] Epithelial cells LM.HPF (Urine sed) [#/Area] None Seen Normal [facility] Comment on above: Order Comment: Speci men Type: URINE SPECIMENOrdering Facility: [facility] Address: [address] [place] [address] Performed By: #### 2 4356-8 ####[facility] LABCLIA [id number] [place] [address] [place] Glucose Test strip (U) [Mass/Vol] Negative Normal Negative [facility] Comment on above: Order Comment: Speci men Type: URINE SPECIMENOrdering Facility: [facility] Address: [address] [place] [address] Performed By: #### 2 4356-8 ####[facility] LABCLIA [id number] [place] [address] [place] Hemoglobin Ql (U) Negative Normal Negative [facility] Comment on above: Order Comment: Speci men Type: URINE SPECIMENOrdering Facility: [facility] Address: [address] [place] [address] Performed By: #### 2 4356-8 ####[facility] LABCLIA [id number] [place] [address] [place] Hyaline casts (Urine sed) [#/Area] 1-3 /LPF Abnormal 0 /LPF [facility] Comment on above: Order Comment: Speci men Type: URINE SPECIMENOrdering Facility: [facility] Address: [address] [place] [address] Performed By: #### 2 4356-8 ####[facility] LABCLIA [id number] [place] [address] [place] Ketones Ql (U) Negative Normal Negative [facility] Comment on above: Order Comment: Speci men Type: URINE SPECIMENOrdering Facility: [facility] Address: [address] [place], [place] [address] Performed By: #### 2 4356-8 ####[facility] LABCLIA [id number] [place] [address] [place] Leukocyte esterase Test strip Ql (U) Trace Abnormal Negative [facility] Comment on above: Order Comment: Speci men Type: URINE SPECIMENOrdering Facility: [facility] Address: [address] [place] [address] Performed By: #### 2 4356-8 ####[facility] LABCLIA [id number] [place] [address] [place] Nitrite Ql (U) Negative Normal Negative [facility] Comment on above: Order Comment: Speci men Type: URINE SPECIMENOrdering Facility: [facility] Address: [address] [place] [address] Performed By: #### 2 4356-8 ####[facility] LABCLIA [id number] [place] [address] [place] pH (U) 7.0 [pH] Normal <8.5 [facility] Comment on above: Order Comment: Speci men Type: URINE SPECIMENOrdering Facility: [facility] Address: [address] [place] [address] Performed By: #### 2 4356-8 ####[facility] LABCLIA [id number] [place] [address] [place] Protein (U) [Mass/Vol] Negative Normal Negative [facility] Comment on above: Order Comment: Speci men Type: URINE SPECIMENOrdering Facility: [facility] Address: [address] [place] [address] Performed By: #### 2 4356-8 ####[facility] LABCLIA [id number] [place] [address] [place] RBC LM.HPF (Urine sed) [#/Area] 0-2 /HPF Normal 0-2 /HPF [facility] Comment on above: Order Comment: Speci men Type: URINE SPECIMENOrdering Facility: [facility] Address: [address] [place] [address] Performed By: #### 2 4356-8 ####[facility] [id number] [place] [address] [place] Specific gravity (U) [Rel density] 1.018 Normal 1.005-1.030 [facility] Comment on above: Order Comment: Speci men Type: URINE SPECIMENOrdering Facility: [facility] Address: [address] [place] [address] Performed By: #### 2 4356-8 ####[facility] [id number] [place] [address] [place] Urobilinogen Ql (U) 1.0 EU/dL Normal 0.2-1.0 EU/dL [facility] Comment on above: Order Comment: Speci men Type: URINE SPECIMENOrdering Facility: [facility] Address: [address] [place] [address] Performed By: #### 2 4356-8 ####[facility] [id number] [place] [address] [place] WBC LM.HPF (Urine sed) [#/Area] 0-5 /HPF Normal 0-5 /HPF [facility] Comment on above: Order Comment: Speci men Type: URINE SPECIMENOrdering Facility: [facility] Address: [address] [place] [address] Performed By: #### 2 4356-8 ####[facility] [id number] [place] [address] [place] CBC panel Auto (Bld)on 06-08 Erythrocyte distribution width (RBC) [Ratio] 13.7 % Normal 11.5-15.0 [facility] Comment on above: Order Comment: Speci men Type: BLOOD SPECIMENOrdering Facility: [facility] Address: [address] [place] [address] Performed By: #### 5 8410-2 ####[facility] LABCLIA [id number] [place] [address] [place] Hematocrit (Bld) [Volume fraction] 36.7 % Low 39.0-51.0 [facility] Comment on above: Order Comment: Speci men Type: BLOOD SPECIMENOrdering Facility: [facility] Address: [address] [place] [address] Performed By: #### 5 8410-2 ####[facility] LABIA [id number] [place] [address] [place] Hemoglobin (Bld) [Mass/Vol] 11.9 g/dL Low 13.0-17.0 [facility] Comment on above: Order Comment: Speci men Type: BLOOD SPECIMENOrdering Facility: [facility] Address: [address] [place] [address] Performed By: #### 5 8410-2 ####[facility] LABIA [id number] [place] [address] [place] MCH (RBC) [Entitic mass] 30.7 pg Normal 26.0-34.0 [facility] Comment on above: Order Comment: Speci men Type: BLOOD SPECIMENOrdering Facility: [facility] Address: [address] [place] [address] Performed By: #### 5 8410-2 ####[facility] LABIA [id number] [place] [address] [place] MCHC (RBC) [Mass/Vol] 32.4 g/dL Normal 30.5-36.0 [facility] Comment on above: Order Comment: Speci men Type: BLOOD SPECIMENOrdering Facility: [facility] Address: [address] [place] [address] Performed By: #### 5 8410-2 ####[facility] LABCLIA [id number] [place] [address] [place] MCV (RBC) [Entitic vol] 94.6 fL Normal 80.0-100.0 [facility] Comment on above: Order Comment: Speci men Type: BLOOD SPECIMENOrdering Facility: [facility] Address: [address] [place] [address] Performed By: #### 5 8410-2 ####[facility] LABIA [id number] [place] [address] [place] Nucleated RBC (Bld) [#/Vol] 10*3/uL Normal <0.01 [facility] Comment on above: Order Comment: Speci men Type: BLOOD SPECIMENOrdering Facility: [facility] Address: [address] [place] [address] Performed By: #### 5 8410-2 ####[facility] LABIA [id number] [place] [address] [place] Platelet mean volume (Bld) [Entitic vol] 11.3 fL Normal 9.0-12.7 [facility] Comment on above: Order Comment: Speci men Type: BLOOD SPECIMENOrdering Facility: [facility] Address: [address] [place] [address] Performed By: #### 5 8410-2 ####[facility] LABIA [id number] [place] [address] [place] Platelets (Bld) [#/Vol] 193 10*3/uL Normal 150-400 [facility] Comment on above: Order Comment: Speci men Type: BLOOD SPECIMENOrdering Facility: [facility] Address: [address] [place] [address] Performed By: #### 5 8410-2 ####[facility] LABCLIA [id number] [place] [address] [place] RBC (Bld) [#/Vol] 3.88 10*6/uL Low 4.20-6.00 [facility] Comment on above: Order Comment: Speci men Type: BLOOD SPECIMENOrdering Facility: [facility] Address: [address] [place] [address] Performed By: #### 5 8410-2 ####[facility] LABIA [id number] [place] [id number] [place] WBC (Bld) [#/Vol] 6.82 10*3/uL Normal 3.70-11.00 [facility] Comment on above: Order Comment: Speci men Type: BLOOD SPECIMENOrdering Facility: [facility] Address: [address] [place] [address] Performed By: #### 5 8410-2 ####[facility] LABIA [id number] [place] [id number] [facility] [place] CNOVon 06-08-2024 [facility] GODFREYYVONNE ([id number]) 1940 M Date Time Provider Department 06/08/24 10:00 AM [facility] During your visit today, we recorded the following information about you: Pulse Respiration Blood pressure Weight 72/minute 16/minute 98/58 99.8 kg Height 1.74 m Leoncio Chavez MD 06/08/2024 12:58 PM Signed Yvonne Zavalaher is a 84 year old male here for a Medicare wellness visit. Medicare Health Risk Assessment General Health Good Exercise: Minutes/Day 0 min Exercise: Days/Week 0 days Alcohol: Daily Use Monthly or less Alcohol: Drinks/Day 1 or 2 Alcohol: 6 or more drinks Never Feel off balance No Concerns: Teeth/Dentures No Concerns: Sexual function No Troubled by feelings None of the above Frequency: Eating healthy diet Nearly every day ADLs requiring help None of the above Safety precautions in home/vehicle No Smoke, vape, chews tobacco No Difficulty hearing No Difficulty seeing No Current Providers Specialists: I have reviewed specialist-related care of the patient in the medical record. Current care team: Patient Care Team: Leoncio Chavez MD as PCP - General (Family Medicine) Kedar De Leon APRN.SYSTEMS TRAINER as Voting Machine Repairer (Family Medicine) Angy Luciano PA-C as Voting Machine Repairer (Family Medicine) Dr. Tobar: cardio Medical/Family history review Reviewed and updated problem list, medical/surgical/family/soc ial history, medications, and allergies. Opioid use review Opioid Medications (last 90 days) No data to display Anxiety/Depression screening PHQ-2 Score: 0 (Lower risk for depression) Recommendation: no further intervention at this time Cognitive screening Score: 4 Cognitive screening reviewed and No further action needed (score 3-5). Functional Observation Was the patient's Timed Up AND Go test unsteady or >= 12 seconds? No Advance Care Planning Patient did not wish or was not able to name a surrogate decision maker or provide an advance care plan Measurements BP 98/58 Pulse 72 Resp 16 Ht 174 cm (5' 8.5) Wt 99.8 kg (220 lb) BMI 32.96 kg/m? Vision Screening: Follows with optometry/ophthalmology Assessment/Plan Medicare annual wellness visit, subsequent (Z00.00) - Counseled on healthy diet and regular exercise - Fall avoidance information provided - Personalized prevention plan provided See Below Chief Complaint Patient presents with: Medicare Wellness Exam HPI Yvonne Jones is a 84 year old male who presents here today for Chronic Medical Conditions. and Medicare Annual Visit. Patient with hx of HTN, hyperlipidemia, CHF, CAD, elevated glucose, anemia, elevated PSA and those as below. Component Ref Range AND Units 5 mo ago (12/22/23) 1 yr ago (06/07/23) 1 yr ago (11/25/22) 2 yr ago (05/27/22) 2 yr ago (10/15/21) 3 yr ago (03/20/21) 3 yr ago (06/26/20) Hemoglobin A1C 4.3 - 5.6 % 6.0 High 5.7 High CM 5.8 High CM 5.7 High CM 5.9 High CM 5.9 High CM 5.9 High Past medical history, appointments, medications, allergies reviewed. Previous Medical History PAST MEDICAL HISTORY Diagnosis Date Advance directive discussed with patient 05/27/2022 Discussed 05/2022: Packets given Anemia of chronic disease 10/16/2021 Benign non-nodular prostatic hyperplasia without lower urinary tract symptoms 05/27/2015 Chronic diastolic CHF (congestive heart failure) (HCC) Chronic rhinitis 08/27/2012 Coronary artery disease due to lipid rich plaque 05/27/2015 left Cx, sees Dr. Breana Linder Diastolic dysfunction 2012 Elevated hemoglobin A1c 06/20/2018 Elevated PSA 06/08/2015 Essential hypertension Ex-smoker 12/20/2018 Started around age 17 up to 2 cigs quit around 18. External hemorrhoid 12/20/2018 Medicare annual wellness visit, subsequent 12/02/2016 Medicare part B: 04/21/2007 last done: 12/23/2019 Mixed hyperlipidemia Obesity, Class II, BMI 35-39.9 06/07/2023 Obstructive sleep apnea Rosacea Previous Surgical History PAST SURGICAL HISTORY Procedure Laterality Date COLONOSCOPY 1997 neg COLSC FLX W/REMOVAL LESION BY HOT BX FORCEPS 08/14/15 hyperplastic polyp - 10 year follow up PAST SURGICAL HISTORY OF Right 2016 ring finger Rt Fx repair Family History FAMILY HISTORY Problem Relation Age of Onset Stroke Mother 92 other (hypotension) Mother Ischemic Heart Disease Father 59 [place] Cancer Father skin cancer Ischemic Heart Disease Paternal Grandfather Ischemic Heart Disease Paternal Uncle 3 uncles Colon Cancer No Family History Prostate Cancer No Family History Alzheimer's Disease No Family History Patient Allergies ALLERGIES Allergen Reactions Seasonal Allergies Intolerance Testing 06/18/12 negative. Patient still bothered by allergens. grass, pollen, ragweed Current Medications Current Outpatient Medications on File Prior to Visit Medication Sig isosorbide monon (more content not included)... Normal [facility] Comprehensive metabolic 2000 panelon 06-08-2024 Albumin [Mass/Vol] 4.2 g/dL Normal 3.9-4.9 [facility] Comment on above: Order Comment: Speci men Type: BLOOD SPECIMENOrdering Facility: [facility] Address: [address] [place] [address] Performed By: #### 1 0886-0, LIPNF, 13708-8 ####[facility] LABCLIA [id number] [facility] [id number] [address] [place] ALP [Catalytic activity/Vol] 132 U/L High 38-113 [facility] Comment on above: Order Comment: Speci men Type: BLOOD SPECIMENOrdering Facility: [facility] Address: [address] [place] [address] Performed By: #### 1 0886-0, LIPNF, 34023-9 ####[facility] LABCLIA [id number] [place] [address] [place] ALT [Catalytic activity/Vol] 24 U/L Normal 10-54 [facility] Comment on above: Order Comment: Speci men Type: BLOOD SPECIMENOrdering Facility: [facility] Address: [address] [place] [address] Performed By: #### 1 0886-0, LIPNF, 66493-2 ####[facility] LABCLIA [id number] [place] [address] [place] Anion gap [Moles/Vol] 15 mmol/L Normal 8-15 [facility] Comment on above: Order Comment: Speci men Type: BLOOD SPECIMENOrdering Facility: [facility] Address: [address] [place] [address] Performed By: #### 1 0886-0, LIPNF, 84507-9 ####[facility] LABCLIA [id number] [place] [address] [place] AST [Catalytic activity/Vol] 20 U/L Normal 14-40 [facility] Comment on above: Order Comment: Speci men Type: BLOOD SPECIMENOrdering Facility: [facility] Address: [address] [place] [address] Performed By: #### 1 0886-0, LIPNF, 11672-5 ####[facility] LABCLIA [id number] [place] [address] [place] Bilirubin [Mass/Vol] 0.5 mg/dL Normal 0.2-1.3 [facility] Comment on above: Order Comment: Speci men Type: BLOOD SPECIMENOrdering Facility: [facility] Address: [address] [place] [address] Performed By: #### 1 0886-0, LIPNF, ####[facility] LABCLIA [id number] [address] [address] [place] Calcium [Mass/Vol] 9.8 mg/dL Normal 8.5-10.2 [facility] Comment on above: Order Comment: Speci men Type: BLOOD SPECIMENOrdering Facility: [facility] Address: [address] [place] [address] Performed By: #### 1 0886-0, LIPNF, ####[facility] LABCLIA [id number] [place] [address] [place] Chloride [Moles/Vol] 106 mmol/L Normal 98-107 [facility] Comment on above: Order Comment: Speci men Type: BLOOD SPECIMENOrdering Facility: [facility] Address: [address] [place] [address] Performed By: #### 1 0886-0, LIPNF, ####[facility] LABCLIA [id number] [place] [address] [place] CO2 [Moles/Vol] 23 mmol/L Normal 22-30 [facility] Comment on above: Order Comment: Speci men Type: BLOOD SPECIMENOrdering Facility: [facility] Address: [address] [place] [address] Performed By: #### 1 0886-0, LIPNF, 76967-5 ####[facility] LABCLIA [id number] [place] [address] [place] Creatinine [Mass/Vol] 1.48 mg/dL High 0.73-1.22 [facility] Comment on above: Order Comment: Speci men Type: BLOOD SPECIMENOrdering Facility: [facility] Address: [address] [place] [address] Performed By: #### 1 0886-0, ELVIS, 88464-1 ####[facility] LABIA [id number] [place] [address] [place] Creatinine and Glomerular filtration rate.predicted panel (S/P/Bld) 47 mL/min/1.73m??? Low >=60 [facility] Comment on above: Order Comment: Dory martinez Type: BLOOD SPECIMENOrdering Facility: [facility] Address: [address] [place] [address] Result Comment: Herminia mated Glomerular Filtration Rate (eGFR) is calculated using the 2020 CKD-EPI creatinine equation. This equation utilizes serum creatinine, sex, and age as parameters. The creatinine assay has traceable calibration to isotope dilution-mass spectrometry. Refer to KDIGO guidelines for clinical interpretation. In patients with unstable renal function, e.g. those with acute kidney injury, the eGFR may not accurately reflect actual GFR. Performed By: #### 1 0886-0, ELVIS, 33967-1 ####[facility] LABIA [id number] [place] [address] [place] Glucose [Mass/Vol] 74 mg/dL Normal 74-99 [facility] Comment on above: Order Comment: Dory martinez Type: BLOOD SPECIMENOrdering Facility: [facility] Address: [address] [place] [address] Result Comment: The [place] Diabetes Association (ADA) provides guidance for cutoff values for fasting glucose and random glucose. The ADA defines fasting as no caloric intake for at least 8 hours. Fasting plasma glucose results between 100 to 125 mg/dL indicate increased risk for diabetes (prediabetes). Fasting plasma glucose results greater than or equal to 126 mg/dL meet the criteria for diagnosis of diabetes. In the absence of unequivocal hyperglycemia, results should be confirmed by repeat testing. In a patient with classic symptoms of hyperglycemia or hyperglycemic crisis, random plasma glucose results greater than or equal to 200 mg/dL meet the criteria for diagnosis of diabetes. Reference: Standards of Medical Care in Diabetes 2016, Chinese Diabetes Association. Diabetes Care. 2016.39(Suppl 1). Performed By: #### 1 0886-0, LIPNF, ####[facility] LABCLIA [id number] [place] [address] [place] Potassium [Moles/Vol] 4.1 mmol/L Normal 3.7-5.1 [facility] Comment on above: Order Comment: Speci men Type: BLOOD SPECIMENOrdering Facility: [facility] Address: [address] [place] [address] Performed By: #### 1 0886-0, LIPNF, ####[facility] LABCLIA [id number] [place] [address] [place] Protein [Mass/Vol] 7.5 g/dL Normal 6.3-8.0 [facility] Comment on above: Order Comment: Speci men Type: BLOOD SPECIMENOrdering Facility: [facility] Address: [address] [place] [address] Performed By: #### 1 0886-0, LIPNF, ####[facility] LABIA [id number] [place] [address] [place] Sodium [Moles/Vol] 144 mmol/L Normal 136-144 [facility] Comment on above: Order Comment: Speci men Type: BLOOD SPECIMENOrdering Facility: [facility] Address: [address] [place] [address] Performed By: #### 1 0886-0, LIPNF, ####[facility] LABCLIA [id number] [place] [id number] [place] Urea nitrogen [Mass/Vol] 29 mg/dL High 9-24 [facility] Comment on above: Order Comment: Speci men Type: BLOOD SPECIMENOrdering Facility: [facility] Address: [address] [place] [address] Performed By: #### 1 0886-0, LIPNF, 00394-5 ####[facility] LABCLIA [id number] [place] [address] [place] Free PSA [Mass/Vol]on 2024 Free PSA/Total PSA [Mass fraction] 44 % Normal [facility] Comment on above: Order Comment: Speci men Type: BLOOD SPECIMENOrdering Facility: [facility] Address: [address] [place] [address] Result Comment: Tota l and free PSA test methodology used is the Electrochemiluminescence Immunoassay by [employer]. Total or free PSA values by differing methodologies cannot be interchanged. The below table lists the probability of finding prostate cancer upon needle biopsy, for men 50 years or older and total PSA concentrations from 4.0-10.0 ng/mL. Results should be interpreted within the broader clinical context. Free PSA(%) 50-59 years 60-69 years >69 years <11 49.2% 57.5% 64.5% 11-18 26.9% 33.9% 40.8% 19-25 18.3% 23.9% 29.7% >25 9.1% 12.2% 15.8% Performed By: #### 1 0886-0, LIPNF, 84569-8 ####[facility] LABCLIA [id number] [place] [address] [place] Prostate specific Ag [Mass/Vol] 4.34 ng/mL High <2.60 [facility] Comment on above: Order Comment: Speci men Type: BLOOD SPECIMENOrdering Facility: [facility] Address: [address] [place] [address] Result Comment: Tota l PSA test methodology used is the Electrochemiluminescence Immunoassay by [employer]. Total PSA values by differing methodologies cannot be interchanged. For an individual patient, the significance of a PSA level should be interpreted in a broad clinical context, including age, race, family history, digital rectal exam, prostate size, results of prior testing (prostate biopsy, free PSA, PCA3), and use of 5-alpha reductase inhibitors. Considering the high incidence of asymptomatic cancer in the general population that may not pose an ultimate risk to a patient, the decision to recommend urological evaluation or prostate biopsy should be individualized after consideration of all these factors. REFERENCE: Betty Ward M.D., M.P.H., Nakul Layne M.D., Ph.D., Yaron Redd M.D., Catie Medley, M.P.H., Charley Lazo Sc.D. Effect of Verification Bias on Screening for Prostate Cancer by Measurement of Prostatic Specific Antigen. N Engl J Med 2003,349:335-42. Performed By: #### 1 0886-0, LIPNF, 13724-1 ####[facility] LABCLIA [id number] [place] [address] [place] HbA1c (Bld)on 06-08-2024 Average glucose Estimated from glycated hemoglobin (Bld) [Mass/Vol] 123 mg/dL Normal [facility] Comment on above: Order Comment: Speci men Type: BLOOD SPECIMENOrdering Facility: [facility] Address: [address] [place] [address] Result Comment: eAG: (Estimated average glucose) is a calculated value from HgbA1c and is technical service representative of the average blood glucose level in the last 2-3 month period. Performed By: #### 5 5454-3 ####[facility] LABCLIA [id number] [place] [address] [place] HbA1c (Bld) [Mass fraction] 5.9 % High 4.3-5.6 [facility] Comment on above: Order Comment: Speci men Type: BLOOD SPECIMENOrdering Facility: [facility] Address: [address] [place] [address] Result Comment: [place] Diabetes Association guidelines indicate that patients with HgbA1c in the range 5.7-6.4% are at increased risk for development of diabetes, and intervention by lifestyle modification may be beneficial. HgbA1c greater or equal to 6.5% is considered diagnostic of diabetes. Performed By: #### 5 5454-3 ####[facility] LABCLIA [id number] [place] [address] [place] LIPID PANEL, NONFASTINGon Cholesterol [Mass/Vol] 113 mg/dL Normal <200 [facility] Comment on above: Order Comment: Speci men Type: BLOOD SPECIMENOrdering Facility: [facility] Address: [address] [place] [address] Result Comment: <200 mg/dL, Desirable 200-239 mg/dL, Borderline high >239 mg/dL, High Performed By: #### 1 0886-0, LIPNF, 94933-5 ####[facility] LABCLIA [id number] [place] [address] [place] HDL CHOLESTEROL, NF 31 mg/dL Low >39 [facility] Comment on above: Order Comment: Speci men Type: BLOOD SPECIMENOrdering Facility: [facility] Address: [address] [place] [address] Result Comment: 40-5 9 mg/dL, Acceptable >59 mg/dL, High: Negative risk factor for coronary heart disease <40 mg/dL, Low: Positive risk factor for coronary heart disease Performed By: #### 1 0886-0, LIPNF, 69941-5 ####[facility] LABCLIA [id number] [address] [place] LDL CHOLESTEROL, NF 63 mg/dL Normal <100 [facility] Comment on above: Order Comment: Speci men Type: BLOOD SPECIMENOrdering Facility: [facility] Address: [address] [place] [address] Result Comment: <100 mg/dL, Optimal 100-129 mg/dL, Near optimal/above optimal 130-159 mg/dL, Borderline high 160-189 mg/dL, High >189 mg/dL, Very high Secondary prevention optimal LDL Cholesterol levels are recommended to be < 70 mg/dL Performed By: #### 1 0886-0, LIPNF, 32346-0 ####[facility] LABCLIA [id number] [place] [address] [place] LDL/HDL RATIO, NF 2.03 mg/dL Normal <2.54 [facility] Comment on above: Order Comment: Speci men Type: BLOOD SPECIMENOrdering Facility: [facility] Address: [address] [place] [address] Result Comment: Anastasia domingo: 1. National Cholesterol Education Program ATP III Guideline At-A-Glance Quick Desk Reference: National Heart, Lung, and Blood [place]. National Institutes of Health. 2001: NIH Publication No. 01-3305. 2. An International Atherosclerosis Society position paper: global recommendations for the management of dyslipidemia: executive summary, Atherosclerosis. 2014: 232(2):410-413. Performed By: #### 1 0886-0, LIPNF, 31710-5 ####[facility] LABCLIA [id number] [place] [address] [place] NON HDL CHOL, NF 82 mg/dL Normal <130 [facility] Comment on above: Order Comment: Sammiei men Type: BLOOD SPECIMENOrdering Facility: [facility] Address: [address] [place] [address] Result Comment: <130 mg/dL, Optimal 130-159 mg/dL, Near optimal/above optimal 160-189 mg/dL, Borderline high 190-219 mg/dL, High >219 mg/dL, Very high Secondary prevention optimal non HDL Cholesterol levels are recommended to be <100 mg/dL Performed By: #### 1 0886-0, LIPNF, 28222-9 ####[facility] LABCLIA [id number] [place] [address] [place] T CHOL/HDL RATIO NF 3.65 mg/dL Normal <5.10 [facility] Comment on above: Order Comment: Speci men Type: BLOOD SPECIMENOrdering Facility: [facility] Address: [address] [place] [address] Performed By: #### 1 0886-0, LIPNF, 90181-6 ####[facility] LABCLIA [id number] [place] [address] [place] TRIGLYCERIDES, NF 96 mg/dL Normal <150 [facility] Comment on above: Order Comment: Speci men Type: BLOOD SPECIMENOrdering Facility: [facility] Address: [address] [place] [address] Result Comment: <150 mg/dL, Normal 150-199 mg/dL, Borderline high 200-499 mg/dL, High >499 mg/dL, Very high Performed By: #### 1 0886-0, LIPNF, 18927-9 ####[facility] LABCLIA [id number] [place] [address] [place] VLDL CHOLESTEROL, NF 19 mg/dL Normal <30 [facility] Comment on above: Order Comment: Dory martinez Type: BLOOD SPECIMENOrdering Facility: [facility] Address: [address] [place] [address] Performed By: #### 1 0886-0, LIPNF, 55529-8 ####[facility] LABCLIA [id number] [address] [place] CNPSherri 06-05-2024 [facility] YVONNE JONES ([id number]) 1940 M Date Time Provider Department 06/05/24 DIMAS RUSSELL [facility] During your visit today, we recorded the following information about you: Dimas Russell MA 06/05/2024 3:41 PM Signed Patient coming in this Monday for physical. Please place orders. CÉSAR Call Jeffrey A, MD 06/05/2024 4:57 PM Signed Orders placed. Allergies As of Date: 06/05/2024 Noted Allergy Reaction SEASONAL ALLERGIES 03/21/2012 5 - Intolerance Comments: Testing 06/18/12 negative. Patient still bothered by allergens. grass, pollen, ragweed Date Reviewed: 01/30/2024 Reviewed by: James Quick DO - Fully Assessed Reason for Visit: Orders [681] Primary Visit Diagnosis:Essential hypertension [I10] Other Visit Diagnoses:Coronary artery disease due to lipid rich plaque [I25.10, I25.83] Elevated hemoglobin A1c [R73.09] Mixed hyperlipidemia [E78.2] Anemia of chronic disease [D63.8] Medication management [Z79.899] Elevated PSA [R97.20] Order(s):COMPREHENSIVE METABOLIC PANEL [SQCMP] Order #: [id number] FUTURE HEMOGLOBIN A1C [UKVNU6F] Order #: [id number] FUTURE URINALYSIS, WITH MICROSCOPIC [SQUAWMIC] Order #: [id number] FUTURE LIPID PANEL, NONFASTING [SQLIPNF] Order #: [id number] FUTURE PROSTATE SPECIFIC ANTIGEN, FREE [SQPSATF] Order #: [id number] FUTURE COMPLETE BLOOD COUNT [SQCBC] Order #: [id number] FUTURE Prescriptions as of 06/05/2024 - isosorbide mononitrate ER (IMDUR) 30 mg 24 hr tablet Take 0.5 tablets by mouth once daily. - ezetimibe (ZETIA) 10 mg tablet Take 1 tablet by mouth once daily. - dilTIAZem CD (CARDIZEM CD) 240 mg 24 hr capsule Take 1 capsule by mouth once daily. - atorvastatin (LIPITOR) 80 mg tablet Take 1 tablet by mouth once daily. - hydroCHLOROthiazide 12.5 mg capsule Take 1 capsule by mouth once daily. - losartan (COZAAR) 100 mg tablet Take 1 tablet by mouth once daily. - aspirin, enteric coated (ASPIRIN, ENTERIC COATED) 81 mg EC tablet Take 1 tablet by mouth once daily. - omega-3 fatty acids 1,000 mg cap Take 1 capsule by mouth once daily. - cetirizine (ZYRTEC) 10 mg tablet Take 1 tablet by mouth once daily. - ibuprofen (MOTRIN) 200 mg tablet Take 1-2 tablets by mouth every 6 hours as needed for Pain (Take with food.). - artificial tear, Hypromellose, (GENTEAL MODERATE) 0.3 % Drop Use 1 Drop in both eyes as needed. Problem List As Of Date 06/05/2024 Noted Resolved Mixed hyperlipidemia [E78.2] 12/23/2019 Essential hypertension [I10] Allergic rhinitis [J30.9] 08/27/2012 Rosacea [L71.9] Dandruff [L21.0] Chronic rhinitis [J31.0] 08/27/2012 Chronic diastolic CHF (congestive heart failure* Coronary artery disease due to lipid rich plaqu*05/27/2015 Benign non-nodular prostatic hyperplasia withou*05/27/2015 Disorder of prostate [N42.9] 05/27/2015 Elevated PSA [R97.20] 06/08/2015 Obstructive sleep apnea [G47.33] Medicare annual wellness visit, subsequent [Z00*12/02/2016 Elevated hemoglobin A1c [R73.09] 06/20/2018 Ex-smoker [Z87.891] 12/20/2018 External hemorrhoid [K64.4] 12/20/2018 Mixed hyperlipidemia [E78.2] Medication management [Z79.899] 06/30/2020 Anemia of chronic disease [D63.8] 10/16/2021 Advance directive discussed with patient [Z71.8*05/27/2022 Obesity, Class II, BMI 35-39.9 [E66.812] 06/07/2023 Prediabetes [R73.03] 01/30/2024 Abnormal nuclear stress test [R94.39] 01/30/2024 Abnormal ankle brachial index (DIVYA) [R68.89] 01/30/2024 Encounter Status:Closed by LEONCIO CHAVEZ on 06/05/24 [facility] CNOVon 01-30-2024 CNOV Office Visit (ALAN ) YVONNE JONES ([id number]) 1940 M Date Time Provider Department 01/30/24 8:20 AM JAMES QUICK During your visit today, we recorded the following information about you: Pulse Blood pressure Weight Height 75/minute 118/66 104.4 kg 1.753 m James Quick DO 01/30/2024 9:11 AM Signed [facility] OUTPATIENT VISIT DATE January 30, 2024 PRIMARY CARE PHYSICIAN: Leoncio Chavez [address] [place] [address] HISTORY OF PRESENT ILLNESS: Mr. Jones is a 83 year old male. The patient returns for follow-up secondary to a history of chronic diastolic heart failure, hypertension, hyperlipidemia, prediabetes, abnormal nuclear stress imaging demonstrating infarct but no ischemia and more recently an abnormal lower extremity DIVYA suggesting PAD of his left lower extremity. Previous symptoms concerning for claudication have resolved. He denies chest discomfort, dyspnea, orthopnea, paroxysmal after distinct palpitations, near-syncope or syncope. He is continue to go back and forth between this area and their home in the [facility]. They spend the majority of their truj[place] there. PLAN AND RECOMMENDATIONS: The patient remained stable thought apparent symptoms that would suggest angina or cardiac compensation. He appears to have peripheral arterial disease of mild degree by recent ABIs. He however is asymptomatic. Heart rate, blood pressure recent cholesterol profile are favorable. We have therefore made no additions or changes. Dietary and lifestyle modification was reemphasized to facilitate risk factor reduction and heart failure prevention. We will look forward to reevaluating him in the spring upon his return from the [facility]. Vitals: BP 118/66 Pulse 75 Ht 175.3 cm (5' 9) Wt 104.4 kg (230 lb 2.6 oz) SpO2 96% BMI 33.99 kg/m? Physical Exam Vitals reviewed. Constitutional: General: He is not in acute distress. Appearance: He is well-developed. He is not diaphoretic. HENT: Head: Normocephalic and atraumatic. Right Ear: External ear normal. Left Ear: External ear normal. Nose: Nose normal. Eyes: General: No scleral icterus. Right eye: No discharge. Left eye: No discharge. Pupils: Pupils are equal, round, and reactive to light. Neck: Thyroid: No thyromegaly. Vascular: No JVD. Cardiovascular: Rate and Rhythm: Normal rate and regular rhythm. Heart sounds: No murmur heard. No friction rub. No gallop. Pulmonary: Effort: Pulmonary effort is normal. No respiratory distress. Breath sounds: Normal breath sounds. No wheezing or rales. Abdominal: General: Bowel sounds are normal. Palpations: Abdomen is soft. Musculoskeletal: General: Normal range of motion. Cervical back: Neck supple. Skin: General: Skin is warm and dry. Coloration: Skin is not pale. Neurological: Mental Status: He is alert and oriented to person, place, and time. Cranial Nerves: No cranial nerve deficit. Psychiatric: Mood and Affect: Mood is not anxious or depressed. Behavior: Behavior normal. Thought Content: Thought content normal. Judgment: Judgment normal. Review of Systems Constitutional: Negative for activity change, appetite change, fatigue and unexpected weight change. HENT: Negative for ear pain and trouble swallowing. Eyes: Negative for pain and visual disturbance. Respiratory: Positive for shortness of breath (improved). Negative for chest tightness. Cardiovascular: Negative for chest pain, palpitations and leg swelling. Gastrointestinal: Negative for abdominal pain and blood in stool. Endocrine: Negative for cold intolerance and heat intolerance. Genitourinary: Negative for dysuria, hematuria and scrotal swelling. Musculoskeletal: Positive for arthralgias. Negative for myalgias. Skin: Negative for pallor and rash. Allergic/Immunologic: Negative for immunocompromised state. Neurological: Negative for dizziness, syncope and light-headedness. Hematological: Negative for adenopathy. Does not bruise/bleed easily. Psychiatric/Behavioral: Negative for sleep disturbance. The patient is not nervous/anxious. 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 Toussaint No date: Kerwin2012: Diastolic dysfunction 06/20/2018: Elevated hemoglobin A1c 06/08/2015: Elevated PSA No date: Essential hypertension 12/20/2018: Ex-smoker Comment: Sta (more content not included)... Normal [facility] YVONNE [facility]ON[facility] ([id number]) 1940 M Date Time Provider Department 12/25/23 KEDAR DE LEON During your visit today, we recorded the following information about you: Kedar De Leon APRN.SYSTEMS TRAINER 12/25/2023 9:48 AM Signed Please let patient know his Hgba1c increased from 5.7 to 6.0. His BUN and creatinine are also elevated. I would like patient to repeat kidney function labs in 2 week. Patient should stay well hydrated in the meantime as this may be the cause of this elevation. Alfreda Cervantes RN 12/25/2023 4:49 PM Signed Pt called and is notified of providers results and instructions. Pt voices understanding. Alfreda Cervantes RN Allergies As of Date: 12/25/2023 Noted Allergy Reaction SEASONAL ALLERGIES 03/21/2012 5 - Intolerance Comments: Testing 06/18/12 negative. Patient still bothered by allergens. grass, pollen, ragweed Date Reviewed: 12/22/2023 Reviewed by: Rupa Sarkar MA - Fully Assessed Reason for Visit: Results [95] Primary Visit Diagnosis:Blood creatinine increased compared with prior measurement [R79.89] Order(s):BASIC METABOLIC PANEL [SQBMP] Order #: [id number] FUTURE Prescriptions as of 12/25/2023 - isosorbide mononitrate ER (IMDUR) 30 mg 24 hr tablet Take 0.5 tablets by mouth once daily. - ezetimibe (ZETIA) 10 mg tablet Take 1 tablet by mouth once daily. - dilTIAZem CD (CARDIZEM CD) 240 mg 24 hr capsule Take 1 capsule by mouth once daily. - atorvastatin (LIPITOR) 80 mg tablet Take 1 tablet by mouth once daily. - hydroCHLOROthiazide 12.5 mg capsule Take 1 capsule by mouth once daily. - losartan (COZAAR) 100 mg tablet Take 1 tablet by mouth once daily. - aspirin, enteric coated (ASPIRIN, ENTERIC COATED) 81 mg EC tablet Take 1 tablet by mouth once daily. - omega-3 fatty acids 1,000 mg cap Take 1 capsule by mouth once daily. - cetirizine (ZYRTEC) 10 mg tablet Take 1 tablet by mouth once daily. - ibuprofen (MOTRIN) 200 mg tablet Take 1-2 tablets by mouth every 6 hours as needed for Pain (Take with food.). - artificial tear, Hypromellose, (GENTEAL MODERATE) 0.3 % Drop Use 1 Drop in both eyes as needed. Problem List As Of Date 12/25/2023 Noted Resolved Mixed hyperlipidemia [E78.2] 12/23/2019 Essential hypertension [I10] Allergic rhinitis [J30.9] 08/27/2012 Rosacea [L71.9] Dandruff [L21.0] Chronic rhinitis [J31.0] 08/27/2012 Chronic diastolic CHF (congestive heart failure* Coronary artery disease due to lipid rich plaqu*05/27/2015 Benign non-nodular prostatic hyperplasia withou*05/27/2015 Disorder of prostate [N42.9] 05/27/2015 Elevated PSA [R97.20] 06/08/2015 Obstructive sleep apnea [G47.33] Medicare annual wellness visit, subsequent [Z00*12/02/2016 Elevated hemoglobin A1c [R73.09] 06/20/2018 Ex-smoker [Z87.891] 12/20/2018 External hemorrhoid [K64.4] 12/20/2018 Mixed hyperlipidemia [E78.2] Medication management [Z79.899] 06/30/2020 Anemia of chronic disease [D63.8] 10/16/2021 Advance directive discussed with patient [Z71.8*05/27/2022 Obesity, Class II, BMI 35-39.9 [E66.9] 06/07/2023 Encounter Status:Closed by ALFREDA CERVANTES on 12/25/23 Normal [facility] Basic metabolic 2000 panelon 12-22-2023 Anion gap [Moles/Vol] 13 mmol/L Normal 8- [facility] Comment on above: Order Comment: Speci men Type: BLOOD SPECIMENOrdering Facility: [facility] Address: [address] [place] [address] [place] [address] Performed By: #### 1 4086-0, 16278-5, LIPNF ####[facility] LABCLIA [id number] [place] [address] [place] Calcium [Mass/Vol] 9.4 mg/dL Normal 8.5-10.2 [facility] Comment on above: Order Comment: Speci men Type: BLOOD SPECIMENOrdering Facility: [facility] Address: [address] [place] [address] Performed By: #### 1 0886-0, 40839-0, LIPNF ####[facility] LABCLIA [id number] [place] [address] [place] Chloride [Moles/Vol] 102 mmol/L Normal 98-107 [facility] Comment on above: Order Comment: Speci men Type: BLOOD SPECIMENOrdering Facility: [facility] Address: [address] [place] [address] Performed By: #### 1 0886-0, 91225-9, LIPNF ####[facility] LABCLIA [id number] [place] [address] [place] CO2 [Moles/Vol] 24 mmol/L Normal 22-30 [facility] Comment on above: Order Comment: Speci men Type: BLOOD SPECIMENOrdering Facility: [facility] Address: [address] [place] [address] Performed By: #### 1 0886-0, 57486-7, LIPNF ####[facility] LABCLIA [id number] [place] [address] [place] Creatinine [Mass/Vol] 1.89 mg/dL High 0.73-1.22 [facility] Comment on above: Order Comment: Speci men Type: BLOOD SPECIMENOrdering Facility: [facility] Address: [address] [place] [address] Performed By: #### 1 0886-0, 77788-3, LIPNF ####[facility] LABCLIA [id number] [place] [address] [place] Creatinine and Glomerular filtration rate.predicted panel (S/P/Bld) 35 mL/min/1.73m??? Low >=60 [facility] Comment on above: Order Comment: Dory martinez Type: BLOOD SPECIMENOrdering Facility: [facility] Address: [address] [place] [address] Result Comment: Herminia mated Glomerular Filtration Rate (eGFR) is calculated using the 2020 CKD-EPI creatinine equation. This equation utilizes serum creatinine, sex, and age as parameters. The creatinine assay has traceable calibration to isotope dilution-mass spectrometry. Refer to KDIGO guidelines for clinical interpretation. In patients with unstable renal function, e.g. those with acute kidney injury, the eGFR may not accurately reflect actual GFR. Performed By: #### 1 0886-0, 17798-2, LIPNF ####[facility] LABCLIA [id number] [place] [address] [place] Glucose [Mass/Vol] 112 mg/dL High 74-99 [facility] Comment on above: Order Comment: Dory martinez Type: BLOOD SPECIMENOrdering Facility: [facility] Address: [address] [place] [address] Result Comment: The [place] Diabetes Association (ADA) provides guidance for cutoff values for fasting glucose and random glucose. The ADA defines fasting as no caloric intake for at least 8 hours. Fasting plasma glucose results between 100 to 125 mg/dL indicate increased risk for diabetes (prediabetes). Fasting plasma glucose results greater than or equal to 126 mg/dL meet the criteria for diagnosis of diabetes. In the absence of unequivocal hyperglycemia, results should be confirmed by repeat testing. In a patient with classic symptoms of hyperglycemia or hyperglycemic crisis, random plasma glucose results greater than or equal to 200 mg/dL meet the criteria for diagnosis of diabetes. Reference: Standards of Medical Care in Diabetes 2016, Chinese Diabetes Association. Diabetes Care. 2016.39(Suppl 1). Performed By: #### 1 0886-0, 66958-3, LIPNF ####[facility] LABCLIA [id number] [place] [address] [place] Potassium [Moles/Vol] 3.8 mmol/L Normal 3.7-5.1 [facility] Comment on above: Order Comment: Speci men Type: BLOOD SPECIMENOrdering Facility: [facility] Address: [address] [place] [address] Performed By: #### 1 0886-0, 65779-4, LIPNF ####[facility] LABIA [id number] [place] [address] [place] Sodium [Moles/Vol] 139 mmol/L Normal 136-144 [facility] Comment on above: Order Comment: Speci men Type: BLOOD SPECIMENOrdering Facility: [facility] Address: [address] [place] [address] Performed By: #### 1 0886-0, 16405-0, LIPNF ####[facility] LABCLIA [id number] [place] [address] [place] Urea nitrogen [Mass/Vol] 32 mg/dL High 9-24 [facility] Comment on above: Order Comment: Speci men Type: BLOOD SPECIMENOrdering Facility: [facility] Address: [address] [place] [address] Performed By: #### 1 0886-0, 91175-2, LIPNF ####[facility] LABIA [id number] [address] [place] CNOVon 12-22-2023 CNOV Office Visit (XIAO ) YVONNE JONES ([id number]) 1940 M Date Time Provider Department 12/22/23 8:20 AM KEDAR DE LEON During your visit today, we recorded the following information about you: Pulse Respiration Blood pressure Weight 65/minute 14/minute 108/62 104.3 kg Kedar De Leon APRN.SYSTEMS TRAINER 12/22/2023 8:56 AM Signed Chief Complaint Patient presents with: 6 Month Exam HPI Yvonne Jones is a 83 year old male who presents here today for Above Complaints.. Patient presents for routine follow up. Patient reports some orthostatic dizziness the past few days but says this has improved since he increased his water intake. Past medical history, appointments, medications, allergies reviewed. Previous Medical History PAST MEDICAL HISTORY 05/27/2022: Advance directive discussed with patient Comment: Discussed 05/2022: Packets given 10/16/2021: Anemia of chronic disease 05/27/2015: Benign non-nodular prostatic hyperplasia without lower urinary tract symptoms No date: Chronic diastolic CHF (congestive heart failure) (HCC) 08/27/2012: Chronic rhinitis 05/27/2015: Coronary artery disease due to lipid rich plaque Comment: left Cx, sees Dr. Toussaint No date: Dandr2012: Diastolic dysfunction 06/20/2018: Elevated hemoglobin A1c 06/08/2015: Elevated PSA No date: Essential hypertension 12/20/2018: Ex-smoker Comment: Started around age 17 up to 2 cigs quit around 18. 12/20/2018: External hemorrhoid 12/02/2016: Medicare annual wellness visit, subsequent Comment: Medicare part B: 04/21/2007 last done: 12/23/2019 No date: Mixed hyperlipidemia 06/07/2023: Obesity, Class II, BMI 35-39.9 No date: Obstructive sleep apnea No date: Rosacea Previous Surgical History PAST SURGICAL HISTORY 1997: COLONOSCOPY Comment: neg 08/14/15: COLSC FLX W/REMOVAL LESION BY HOT BX FORCEPS Comment: hyperplastic polyp - 10 year follow up 2016: PAST SURGICAL HISTORY OF; Right Comment: ring finger Rt Fx repair Family History FAMILY HISTORY Problem Relation Age of Onset Stroke Mother 92 other (hypotension) Mother Ischemic Heart Disease Father 59 [place] Cancer Father skin cancer Ischemic Heart Disease Paternal Grandfather Ischemic Heart Disease Paternal Uncle 3 uncles Colon Cancer No Family History Prostate Cancer No Family History Alzheimer's Disease No Family History Patient Allergies ALLERGIES Allergen Reactions Seasonal Allergies Intolerance Testing 06/18/12 negative. Patient still bothered by allergens. grass, pollen, ragweed Current Medications Current Outpatient Medications on File Prior to Visit Medication Sig ezetimibe (ZETIA) 10 mg tablet Take 1 tablet by mouth once daily. isosorbide mononitrate ER (IMDUR) 30 mg 24 hr tablet Take 0.5 tablets by mouth once daily. dilTIAZem CD (CARDIZEM CD) 240 mg 24 hr capsule Take 1 capsule by mouth once daily. atorvastatin (LIPITOR) 80 mg tablet Take 1 tablet by mouth once daily. hydroCHLOROthiazide 12.5 mg capsule Take 1 capsule by mouth once daily. losartan (COZAAR) 100 mg tablet Take 1 tablet by mouth once daily. ketoconazole (NIZORAL) 2 % shampoo apply to affected area once daily if needed (Patient not taking: Reported on 08/30/2023) aspirin, enteric coated (ASPIRIN, ENTERIC COATED) 81 mg EC tablet Take 1 tablet by mouth once daily. omega-3 fatty acids 1,000 mg cap Take 1 capsule by mouth once daily. cetirizine (ZYRTEC) 10 mg tablet Take 1 tablet by mouth once daily. ibuprofen (MOTRIN) 200 mg tablet Take 1-2 tablets by mouth every 6 hours as needed for Pain (Take with food.). artificial tear, Hypromellose, (GENTEAL MODERATE) 0.3 % Drop Use 1 Drop in both eyes as needed. No current facility-administered medications on file prior to visit. Social History Social History Tobacco Use Smoking status: Former Types: Cigarettes Quit date: 03/21/1962 Years since quittin.7 Smokeless tobacco: Never Tobacco comments: total of a dozen cigarettes Vaping Use Vaping Use: Never used Substance Use Topics Alcohol use: Yes Comment: very rare - glass of wine, several times per year Drug use: No Review of Symptoms REVIEW OF SYSTEMS SEE HPI EXAM: BP 108/62 Pulse 65 Resp 14 Wt 104.3 kg (230 lb) BMI 33.97 kg/m? General Appearance: Well appearing, alert, in no acute distress, well-hydrated, well nourished.. Lungs: Lungs clear to auscultation. No wheezing, rhonchi, rales.. Heart: RRR without murmur, gallop, or rubs. No ectopy. Health Maintenance List Depression Screening Never done Anxiety Screening Never done Covid-19 Vaccine( season) due on 09/01/2023 DTaP,Tdap,Td Vaccine(1 - Tdap) due on 06/07/2024 RSV Vaccine(1 - 1-dose 60+ series) due on 06/07/2024 Shingrix Vaccine(1 of 2) due on 06/07/2024 Influenza Vaccine(1) due on 01/21/2024 LDL Cholesterol due on 06/07/2024 Diabetes Screening due on (more content not included)... Normal [facility] Free PSA [Mass/Vol]on 2023 Free PSA/Total PSA [Mass fraction] 41 % Normal [facility] Comment on above: Order Comment: Speci men Type: BLOOD SPECIMENOrdering Facility: [facility] Address: [address] [place] [address] Result Comment: Tota l and free PSA test methodology used is the Electrochemiluminescence Immunoassay by [employer]. Total or free PSA values by differing methodologies cannot be interchanged. The below table lists the probability of finding prostate cancer upon needle biopsy, for men 50 years or older and total PSA concentrations from 4.0-10.0 ng/mL. Results should be interpreted within the broader clinical context. Free PSA(%) 50-59 years 60-69 years >69 years <11 49.2% 57.5% 64.5% 11-18 26.9% 33.9% 40.8% 19-25 18.3% 23.9% 29.7% >25 9.1% 12.2% 15.8% Performed By: #### 1 0886-0, 84670-6, LIPNF ####[facility] LABCLIA [id number] [place] [address] [place] Prostate specific Ag [Mass/Vol] 4.01 ng/mL High <2.60 [facility] Comment on above: Order Comment: Speci men Type: BLOOD SPECIMENOrdering Facility: [facility] Address: [address] [place] [address] Result Comment: Tota l PSA test methodology used is the Electrochemiluminescence Immunoassay by [employer]. Total PSA values by differing methodologies cannot be interchanged. For an individual patient, the significance of a PSA level should be interpreted in a broad clinical context, including age, race, family history, digital rectal exam, prostate size, results of prior testing (prostate biopsy, free PSA, PCA3), and use of 5-alpha reductase inhibitors. Considering the high incidence of asymptomatic cancer in the general population that may not pose an ultimate risk to a patient, the decision to recommend urological evaluation or prostate biopsy should be individualized after consideration of all these factors. REFERENCE: Betty Ward M.D., M.P.H., Nakul Layne M.D., Ph.D., Yaron Redd M.D., Catie Medley, M.P.H., Charley Lazo, Sreedhar. Effect of Verification Bias on Screening for Prostate Cancer by Measurement of Prostatic Specific Antigen. N Engl J Med 2003,349:335-42. Performed By: #### 1 0886-0, 85266-0, LIPNF ####[facility] LABCLIA [id number] [place] [address] [place] HbA1c (Bld)on 12-22-2023 Average glucose Estimated from glycated hemoglobin (Bld) [Mass/Vol] 126 mg/dL Normal [facility] Comment on above: Order Comment: Speci men Type: BLOOD SPECIMENOrdering Facility: [facility] Address: [address] [place] [address] Result Comment: eAG: (Estimated average glucose) is a calculated value from HgbA1c and is technical service representative of the average blood glucose level in the last 2-3 month period. Performed By: #### 5 5454-3 ####[facility] LABIA [id number] [place] [address] [place] HbA1c (Bld) [Mass fraction] 6.0 % High 4.3-5.6 [facility] Comment on above: Order Comment: Speci men Type: BLOOD SPECIMENOrdering Facility: [facility] Address: [address] [place] [address] Result Comment: [place] Diabetes Association guidelines indicate that patients with HgbA1c in the range 5.7-6.4% are at increased risk for development of diabetes, and intervention by lifestyle modification may be beneficial. HgbA1c greater or equal to 6.5% is considered diagnostic of diabetes. Performed By: #### 5 5454-3 ####[facility] LABCLIA [id number] [address] [place] LIPID PANEL, NONFASTINGon Cholesterol [Mass/Vol] 100 mg/dL Normal <200 [facility] Comment on above: Order Comment: Speci men Type: BLOOD SPECIMENOrdering Facility: [facility] Address: [address] [place] [address] Result Comment: <200 mg/dL, Desirable 200-239 mg/dL, Borderline high >239 mg/dL, High Performed By: #### 1 0886-0, 82663-0, LIPNF ####[facility] LABCLIA [id number] [place] [address] [place] HDL CHOLESTEROL, NF 27 mg/dL Low >39 [facility] Comment on above: Order Comment: Speci men Type: BLOOD SPECIMENOrdering Facility: [facility] Address: [address] [place] [address] Result Comment: 40-5 9 mg/dL, Acceptable >59 mg/dL, High: Negative risk factor for coronary heart disease <40 mg/dL, Low: Positive risk factor for coronary heart disease Performed By: #### 1 0886-0, 78566-2, LIPNF ####[facility] LABCLIA [id number] [address] [place] LDL CHOLESTEROL, NF 54 mg/dL Normal <100 [facility] Comment on above: Order Comment: Speci men Type: BLOOD SPECIMENOrdering Facility: [facility] Address: [address] [place] [address] Result Comment: <100 mg/dL, Optimal 100-129 mg/dL, Near optimal/above optimal 130-159 mg/dL, Borderline high 160-189 mg/dL, High >189 mg/dL, Very high Secondary prevention optimal LDL Cholesterol levels are recommended to be < 70 mg/dL Performed By: #### 1 0886-0, 33266-3, LIPNF ####[facility] LABCLIA [id number] [place] [address] [place] LDL/HDL RATIO, NF 2.00 mg/dL Normal <2.54 [facility] Comment on above: Order Comment: Speci men Type: BLOOD SPECIMENOrdering Facility: [facility] Address: [address] [place] [address] Result Comment: Refe rence: 1. National Cholesterol Education Program ATP III Guideline At-A-Glance Quick Desk Reference: National Heart, Lung, and Blood [place]. National Institutes of Health. 2001: NIH Publication No. 01-3305. 2. An International Atherosclerosis Society position paper: global recommendations for the management of dyslipidemia: executive summary, Atherosclerosis. 2014: 232(2):410-413. Performed By: #### 1 0886-0, 64763-1, LIPNF ####[facility] LABCLIA [id number] [place] [address] [place] NON HDL CHOL, NF 73 mg/dL Normal <130 [facility] Comment on above: Order Comment: Speci men Type: BLOOD SPECIMENOrdering Facility: [facility] Address: [address] [place] [address] Result Comment: <130 mg/dL, Optimal 130-159 mg/dL, Near optimal/above optimal 160-189 mg/dL, Borderline high 190-219 mg/dL, High >219 mg/dL, Very high Secondary prevention optimal non HDL Cholesterol levels are recommended to be <100 mg/dL Performed By: #### 1 0886-0, 82129-0, LIPNF ####[facility] LABIA [id number] [place] [address] [place] T CHOL/HDL RATIO NF 3.70 mg/dL Normal <5.10 [facility] Comment on above: Order Comment: Speci men Type: BLOOD SPECIMENOrdering Facility: [facility] Address: [address] [place] [address] Performed By: #### 1 0886-0, 49090-9, LIPNF ####[facility] LABCLIA [id number] [place] [address] [place] TRIGLYCERIDES, NF 95 mg/dL Normal <150 [facility] Comment on above: Order Comment: Speci men Type: BLOOD SPECIMENOrdering Facility: [facility] Address: [address] [place] [address] Result Comment: <150 mg/dL, Normal 150-199 mg/dL, Borderline high 200-499 mg/dL, High >499 mg/dL, Very high Performed By: #### 1 0886-0, 56346-2, LIPNF ####[facility] LABCLIA [id number] [place] [address] [place] VLDL CHOLESTEROL, NF 19 mg/dL Normal <30 [facility] Comment on above: Order Comment: Speci men Type: BLOOD SPECIMENOrdering Facility: [facility] Address: [address] [place] [address] Performed By: #### 1 0886-0, 10445-6, LIPNF ####[facility] LABCLIA [id number] [place] [address] [place] CNOVon 08-30-2023 CNOV Office Visit (TI ) YVONNE JONES ([id number]) 1940 M Date Time Provider Department 08/30/23 11:20 AM JAMES QUICK During your visit today, we recorded the following information about you: Pulse Blood pressure Weight Height 68/minute 124/58 108 kg 1.753 m James Quick DO 08/30/2023 12:06 PM Signed [facility] OUTPATIENT VISIT DATE August 30, 2023 PRIMARY CARE PHYSICIAN: Leoncio Chavez [address] [place] [address] HISTORY OF PRESENT ILLNESS: Mr. Jones is a 83 year old male. The patient returns for follow-up for history of chronic diastolic heart failure, coronary disease, hypertension, hyperlipidemia and obstructive sleep apnea unable to wear the CPAP mask. He denies chest discomfort, dyspnea, orthopnea, paroxysmal nocturnal dyspnea, palpitations, near-syncope or syncope. He unfortunately did not get DIVYA previously ordered and continues to have symptoms of possible claudication. PLAN AND RECOMMENDATIONS: Patient overall appears stable from a cardiovascular standpoint without apparent symptoms that would suggest angina or cardiac decompensation. LDL cholesterol is higher compared to previous but may continue with dietary holidays. Heart rate and blood pressure are favorable on his current optimal medical therapy for which we have made no additions or changes. Will schedule the DIVYA in the future. In the absence of findings will otherwise look forward to seeing him in the fall prior to his departure from the [facility]. Dietary and lifestyle modification was otherwise emphasized to facilitate risk factor reduction and heart failure prevention. Vitals: BP 124/58 Pulse 68 Ht 175.3 cm (5' 9) Wt 108 kg (238 lb 1.6 oz) SpO2 94% BMI 35.16 kg/m? Physical Exam Vitals reviewed. Constitutional: General: He is not in acute distress. Appearance: He is well-developed. He is not diaphoretic. HENT: Head: Normocephalic and atraumatic. Right Ear: External ear normal. Left Ear: External ear normal. Nose: Nose normal. Eyes: General: No scleral icterus. Right eye: No discharge. Left eye: No discharge. Pupils: Pupils are equal, round, and reactive to light. Neck: Thyroid: No thyromegaly. Vascular: No JVD. Cardiovascular: Rate and Rhythm: Normal rate and regular rhythm. Heart sounds: No murmur heard. No friction rub. No gallop. Pulmonary: Effort: Pulmonary effort is normal. No respiratory distress. Breath sounds: Normal breath sounds. No wheezing or rales. Abdominal: General: Bowel sounds are normal. Palpations: Abdomen is soft. Musculoskeletal: General: Normal range of motion. Cervical back: Neck supple. Skin: General: Skin is warm and dry. Coloration: Skin is not pale. Neurological: Mental Status: He is alert and oriented to person, place, and time. Cranial Nerves: No cranial nerve deficit. Psychiatric: Mood and Affect: Mood is not anxious or depressed. Behavior: Behavior normal. Thought Content: Thought content normal. Judgment: Judgment normal. Review of Systems Constitutional: Negative for activity change, appetite change, fatigue and unexpected weight change. HENT: Negative for ear pain and trouble swallowing. Eyes: Negative for pain and visual disturbance. Respiratory: Positive for shortness of breath (improved). Negative for chest tightness. Cardiovascular: Negative for chest pain, palpitations and leg swelling. Gastrointestinal: Negative for abdominal pain and blood in stool. Endocrine: Negative for cold intolerance and heat intolerance. Genitourinary: Negative for dysuria, hematuria and scrotal swelling. Musculoskeletal: Positive for arthralgias. Negative for myalgias. Skin: Negative for pallor and rash. Allergic/Immunologic: Negative for immunocompromised state. Neurological: Negative for dizziness, syncope and light-headedness. Hematological: Negative for adenopathy. Does not bruise/bleed easily. Psychiatric/Behavioral: Negative for sleep disturbance. The patient is not nervous/anxious. 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 Breana Linder Diastolic dysfunction 2013 Elevated hemoglobin A1c 06/20/2018 Elevated PSA 06/08/2015 Essential hypertension Ex-smoker 12/20/2018 Started around age 17 up to 2 cigs quit around 18. External hemorrhoid 12/20/2018 Medicare annual wellness visit, subsequent 12/02/2016 Medicare part (more content not included)... Normal [facility] CNOVon 06-23-2023 CNOV Office Visit (CARMED ) YVONNE JONES ([id number]) 1940 M Date Time Provider Department 06/23/23 3:00 PM JAMES QUICK During your visit today, we recorded the following information about you: Pulse Respiration Blood pressure Weight 77/minute 16/minute 124/68 108.8 kg Height 1.753 m James Quick, 06/23/2023 4:01 PM Signed [facility] OUTPATIENT VISIT DATE June 23, 2023 PRIMARY CARE PHYSICIAN: Leoncio Chavez [address] [place] [address] HISTORY OF PRESENT ILLNESS: Mr. Jones is a 83 year old male. The patient returns for follow-up second history of chronic diastolic heart failure and prior history of coronary disease as well as hypertension and hyperlipidemia with recent worsening dyspnea occurring with exertion and abating with rest. Since that time it is dramatically improved. He additionally has lower extremity decreased pulses. He denies chest discomfort, orthopnea, paroxysmal nocturnal dyspnea, palpitations, near-syncope or syncope. EKG performed today demonstrates normal sinus rhythm at 71 bpm PLAN AND RECOMMENDATIONS: The patient overall appears stable without apparent gross symptoms that would suggest angina or cardiac decompensation on his current medical regimen. We have therefore made no additions or changes. Heart rate blood pressure and recent cholesterol profile are favorable his current medical regimen therefore have made no additions or changes as well. He is planning on going down to [place] to work on his house for the next couple months. Will follow-up with him when he returns. Dietary and lifestyle modification was reemphasized to facilitate risk factor reduction and heart failure prevention. He will have lower extremity ABIs performed after his return due to his decreased pulses in his feet. Vitals: BP 124/68 Pulse 77 Resp 16 Ht 175.3 cm (5' 9.02) Wt 108.8 kg (239 lb 13.8 oz) SpO2 96% BMI 35.40 kg/m? Physical Exam Vitals reviewed. Constitutional: General: He is not in acute distress. Appearance: He is well-developed. He is not diaphoretic. HENT: Head: Normocephalic and atraumatic. Right Ear: External ear normal. Left Ear: External ear normal. Nose: Nose normal. Eyes: General: No scleral icterus. Right eye: No discharge. Left eye: No discharge. Pupils: Pupils are equal, round, and reactive to light. Neck: Thyroid: No thyromegaly. Vascular: No JVD. Cardiovascular: Rate and Rhythm: Normal rate and regular rhythm. Heart sounds: No murmur heard. No friction rub. No gallop. Pulmonary: Effort: Pulmonary effort is normal. No respiratory distress. Breath sounds: Normal breath sounds. No wheezing or rales. Abdominal: General: Bowel sounds are normal. Palpations: Abdomen is soft. Musculoskeletal: General: Normal range of motion. Cervical back: Neck supple. Skin: General: Skin is warm and dry. Coloration: Skin is not pale. Neurological: Mental Status: He is alert and oriented to person, place, and time. Cranial Nerves: No cranial nerve deficit. Psychiatric: Mood and Affect: Mood is not anxious or depressed. Behavior: Behavior normal. Thought Content: Thought content normal. Judgment: Judgment normal. Review of Systems Constitutional: Negative for activity change, appetite change, fatigue and unexpected weight change. HENT: Negative for ear pain and trouble swallowing. Eyes: Negative for pain and visual disturbance. Respiratory: Positive for shortness of breath (improved). Negative for chest tightness. Cardiovascular: Negative for chest pain, palpitations and leg swelling. Gastrointestinal: Negative for abdominal pain and blood in stool. Endocrine: Negative for cold intolerance and heat intolerance. Genitourinary: Negative for dysuria, hematuria and scrotal swelling. Musculoskeletal: Positive for arthralgias. Negative for myalgias. Skin: Negative for pallor and rash. Allergic/Immunologic: Negative for immunocompromised state. Neurological: Negative for dizziness, syncope and light-headedness. Hematological: Negative for adenopathy. Does not bruise/bleed easily. Psychiatric/Behavioral: Negative for sleep disturbance. The patient is not nervous/anxious. 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 Breana Linder Diastolic dysfunction 2013 Elevated hemoglobin A1c 06/20/2018 Elevated PSA (more content not included)... [facility] EKGon 06-23-2023 Electrocardiogram Ventricular Rate : 7 1 BPM Atrial Rate : 71 BPM P-R Interval : 170 ms QRS Duration : 94 ms Q-T Interval : 386 ms QTC Calculation(Bazett) : 419 ms Calculated P [place] : 57 degrees Calculated R [place] : 37 degrees Calculated T [place] : 44 degrees NORMAL SINUS RHYTHM NORMAL ECG NO PREVIOUS ECGS AVAILABLE Confirmed by MD QUICK GREGORY () on 06/28/2023 10:10:37 AM Also confirmed by MD QUICK GREGORY (), purchasing expeditor DIANNA VELEZ ([id number]) on 03/15/2024 8:11:49 AM NAME : YVONNE JONES PID : [id number] : 1940 Gender : Male Race : ORD : Procedure Date : Jun 23 2023 15:29:54 Edit Date : Mar 15 2024 08:11:51 Diagnosis: NORMAL SINUS RHYTHM NORMAL ECG NO PREVIOUS ECGS AVAILABLE Confirmed by MD QUICK GREGORY () on 06/28/2023 10:10:37 AM Also confirmed by MD QUICK GREGORY (), purchasing expeditor DIANNA VELEZ ([id number]) on 03/15/2024 8:11:49 AM Test Reason : Location : [address] [place] [address] Overread By : MD QUICK GREGORY Edited By : DIANNA VELEZ Referred By : , Acquired by : Merry Devlin, [facility] CNOVon 06-09-2023 CNOV Office Visit (CARMED ) YVONNE JONES ([id number]) 1940 Date Time Provider Department 06/09/23 8:20 AM YNES JAMESRINKU LUKE During your visit today, we recorded the following information about you: Pulse Blood pressure Weight Height 68/minute 132/68 108.9 kg 1.753 m YnesJames cabrera Elder, DO 06/09/2023 5:16 PM Signed [facility] OUTPATIENT VISIT DATE June 09, 2023 PRIMARY CARE PHYSICIAN: Leoncio Chavez [address] [place] [address] HISTORY OF PRESENT ILLNESS: Mr. Jones is a 83 year old male. The patient returns for follow-up with history of chronic diastolic heart failure recent worsening of his dyspnea. He has an abnormal nuclear stress test previously demonstrating infarct but no ischemia. Additional history includes hypertension, hyperlipidemia and prediabetes. We have discussed consideration for invasive assessment prior. He denies chest discomfort, orthopnea, paroxysmal nocturnal dyspnea, palpitations, near-syncope or syncope. He now additionally has lower extremity cramping with exercise concerning for claudication. PLAN AND RECOMMENDATIONS: Patient continues have dyspnea which may be multifactorial but certainly is concerning for anginal equivalent. We discussed this with him in great detail and recommend proceeding with diagnostic heart catheterization. He wishes to wait for period time as he has plans in regards to a trip to [place] [facility]. The patient was warned. In the interim we will add isosorbide mononitrate 15 mg daily to his medical regimen. We will additionally perform lower extremity ankle-brachial indices. Dietary and lifestyle modification was otherwise reemphasized to facilitate risk factor reduction heart failure prevention. We will look forward to reevaluating him in a couple weeks time prior to his departure to the [facility]. Vitals: BP 132/68 Pulse 68 Ht 175.3 cm (5' 9) Wt 108.9 kg (240 lb) SpO2 98% BMI 35.44 kg/m? Physical Exam Vitals reviewed. Constitutional: General: He is not in acute distress. Appearance: He is well-developed. He is not diaphoretic. HENT: Head: Normocephalic and atraumatic. Right Ear: External ear normal. Left Ear: External ear normal. Nose: Nose normal. Eyes: General: No scleral icterus. Right eye: No discharge. Left eye: No discharge. Pupils: Pupils are equal, round, and reactive to light. Neck: Thyroid: No thyromegaly. Vascular: No JVD. Cardiovascular: Rate and Rhythm: Normal rate and regular rhythm. Heart sounds: No murmur heard. No friction rub. No gallop. Pulmonary: Effort: Pulmonary effort is normal. No respiratory distress. Breath sounds: Normal breath sounds. No wheezing or rales. Abdominal: General: Bowel sounds are normal. Palpations: Abdomen is soft. Musculoskeletal: General: Normal range of motion. Cervical back: Neck supple. Skin: General: Skin is warm and dry. Coloration: Skin is not pale. Neurological: Mental Status: He is alert and oriented to person, place, and time. Cranial Nerves: No cranial nerve deficit. Psychiatric: Mood and Affect: Mood is not anxious or depressed. Behavior: Behavior normal. Thought Content: Thought content normal. Judgment: Judgment normal. Review of Systems Constitutional: Negative for activity change, appetite change, fatigue and unexpected weight change. HENT: Negative for ear pain and trouble swallowing. Eyes: Negative for pain and visual disturbance. Respiratory: Negative for chest tightness and shortness of breath. Cardiovascular: Negative for chest pain, palpitations and leg swelling. Gastrointestinal: Negative for abdominal pain and blood in stool. Endocrine: Negative for cold intolerance and heat intolerance. Genitourinary: Negative for dysuria, hematuria and scrotal swelling. Musculoskeletal: Positive for arthralgias. Negative for myalgias. Skin: Negative for pallor and rash. Allergic/Immunologic: Negative for immunocompromised state. Neurological: Negative for dizziness, syncope and light-headedness. Hematological: Negative for adenopathy. Does not bruise/bleed easily. Psychiatric/Behavioral: Negative for sleep disturbance. The patient is not nervous/anxious. 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 Breana Lidner Diastolic dysfunction 2012 Elevated hemoglobin A1c 06/20/2018 Elevated PS (more content not included)... Normal [facility] Urinalysis complete panel (U )on 05-28-2022 Bilirubin Ql (U) Negative Negative [facility] Clarity (Unsp spec) Clear Clear [facility] Color (U) Light Yellow Yellow [facility] Epithelial cells LM.HPF (Urine sed) [#/Area] Few Abnormal None Seen /HPF [facility] Glucose Test strip (U) [Mass/Vol] Negative Trace, Negative [facility] Hemoglobin Ql (U) Negative Negative, Trace [facility] Ketones Ql (U) Negative Trace, Negative [facility] Leukocyte esterase Test strip Ql (U) Negative Negative, 25 Eduardo/mL [facility] Nitrite Ql (U) Negative Negative [facility] pH (U) 6.0 [pH] 5.0 - 8.0 [facility] Protein (U) [Mass/Vol] Trace Trace, Negative [facility] RBC LM.HPF (Urine sed) [#/Area] 0-3 /HPF 0-3 /HPF [facility] Specific gravity (U) [Rel density] 1.020 1.005 - 1.030 [facility] Urobilinogen Ql (U) Negative Negative [facility] WBC LM.HPF (Urine sed) [#/Area] 0-5 /HPF 0-5 /HPF [facility] CBC W Auto Differential pane l (Bld)on 05-27-2022 Basophils (Bld) [#/Vol] 0.06 10*3/uL <0.11 k/uL [facility] Basophils/100 WBC (Bld) 0.9 % [facility] Differential cell count method Nom (Bld) Auto [facility] Eosinophils (Bld) [#/Vol] 0.21 10*3/uL <0.46 k/uL [facility] Eosinophils/100 WBC (Bld) 3.1 % [facility] Erythrocyte distribution width (RBC) [Ratio] 13.6 % 11.5 - 15.0 % [facility] Hematocrit (Bld) [Volume fraction] 40.6 % 39.0 - 51.0 % [facility] Hemoglobin (Bld) [Mass/Vol] 13.5 g/dL 13.0 - 17.0 g/dL [facility] Immature granulocytes (Bld) [#/Vol] <0.10 k/uL [facility] Immature granulocytes/100 WBC (Bld) 0.3 % [facility] Lymphocytes (Bld) [#/Vol] 2.24 10*3/uL 1.00 - 4.00 k/uL [facility] Lymphocytes/100 WBC (Bld) 32.8 % [facility] MCH (RBC) [Entitic mass] 30.8 pg 26.0 - 34.0 pg [facility] MCHC (RBC) [Mass/Vol] 33.3 g/dL 30.5 - 36.0 g/dL [facility] MCV (RBC) [Entitic vol] 92.5 fL 80.0 - 100.0 fL [facility] Monocytes (Bld) [#/Vol] 0.60 10*3/uL <0.87 k/uL [facility] Monocytes/100 WBC (Bld) 8.8 % [facility] Neutrophils (Bld) [#/Vol] 3.70 10*3/uL 1.45 - 7.50 k/uL [facility] Neutrophils/100 WBC (Bld) 54.1 % [facility] Nucleated RBC (Bld) [#/Vol] <0.01 k/uL [facility] Nucleated RBC/100 WBC (Bld) [Ratio] 0.0 /100 WBC [facility] Platelet mean volume (Bld) [Entitic vol] 11.1 fL 9.0 - 12.7 fL [facility] Platelets (Bld) [#/Vol] 250 10*3/uL 150 - 400 k/uL [facility] RBC (Bld) [#/Vol] 4.39 10*6/uL 4.20 - 6.0 0 m/uL [facility] WBC (Bld) [#/Vol] 6.83 10*3/uL 3.70 - 11. 00 k/uL [facility] Comprehensive metabolic 2000 panelon 05-27-2022 Albumin [Mass/Vol] 4.5 g/dL 3.9 - 4.9 g/dL [facility] ALP [Catalytic activity/Vol] 110 U/L 38 - 113 U/L [facility] ALT [Catalytic activity/Vol] 25 U/L 10 - 54 U/L [facility] Anion gap [Moles/Vol] 10 mmol/L 9 - 18 mmol/L [facility] AST [Catalytic activity/Vol] 19 U/L 14 - 40 U/L [facility] Bilirubin [Mass/Vol] 0.4 mg/dL 0.2 - 1 .3 mg/dL [facility] Calcium [Mass/Vol] 9.7 mg/dL 8.5 - 10. 2 mg/dL [facility] Chloride [Moles/Vol] 103 mmol/L 97 - 10 5 mmol/L [facility] CO2 [Moles/Vol] 27 mmol/L 22 - 30 mmol/L [facility] Creatinine [Mass/Vol] 1.13 mg/dL 0.73 - 1.22 mg/dL [facility] Estimated Glomerular Filtration Rate 65 mL/min/1.73m >=60 mL/min/1.73m [facility] Glucose [Mass/Vol] 95 mg/dL 74 - 99 mg/dL [facility] Potassium [Moles/Vol] 3.9 mmol/L 3.7 - 5.1 mmol/L [facility] Protein [Mass/Vol] 7.6 g/dL 6.3 - 8.0 g/dL [facility] Sodium [Moles/Vol] 140 mmol/L 136 - 144 mmol/L [facility] Urea nitrogen [Mass/Vol] 23 mg/dL 9 - 24 mg/dL [facility] Free PSA [Mass/Vol]on 2022 Free PSA/Total PSA [Mass fraction] 31 % [facility] Prostate specific Ag [Mass/Vol] 4.80 ng/mL High <2.60 ng/mL [facility] HbA1c (Bld)on 05-27-2022 Average glucose Estimated from glycated hemoglobin (Bld) [Mass/Vol] 117 mg/dL [facility] HbA1c (Bld) [Mass fraction] 5.7 % High 4.3 - 5.6 % [facility] LIPID PANEL, NONFASTINGon Cholesterol [Mass/Vol] 140 mg/dL <200 mg/dL [facility] HDL Cholesterol, Nonfasting 34 mg/dL Low >39 mg/dL [facility] LDL Cholesterol, Nonfasting 88 mg/dL <100 mg/dL [facility] LDL/HDL Ratio, Nonfasting 2.59 mg/dL High <2.54 mg/dL [facility] Non HDL Cholesterol, Nonfasting 106 mg/dL <130 mg/dL [facility] Total Chol/HDL Ratio, Nonfasting 4.12 mg/dL <5.10 mg/dL [facility] Triglycerides, Nonfasting 91 mg/dL <150 mg/dL [facility] VLDL Cholesterol, Nonfasting 18 mg/dL <30 mg/dL [facility] Emergency Department Summary on 09-20-2019 Emergency Department Summary [facility] Medical Records Department [address] [place] [address] Emergency Department Summary 09/19/19 MR#: [id number] Acct: [id number] Name: YVONNE JONES Rep #: [id number] : 1940 79 From: Lilo Rudd MD PCP: Leoncio Chavez MD Status: DEP ER History of Present Illness Chief Complaint: Abd Pain Informant: Patient Onset: Today Current Severity: Mild Maximum Severity: Mild Narrative: Patient presents secondary to abdominal pain and inability to urinate or have a bowel movement. Patient states that he had a normal bowel movement yesterday. This morning he might have a bowel movement but was not able to pass any stool. He has also not been able to pass urine in the last 14 hours. Patient denies fever or chills. He states there was 1 time previously approximate 4 years ago that he had similar symptoms. They attributed it to patient taking pain medication for a broken finger at that time. - Past Medical History (1) Hypertension Status: Chronic (2) High cholesterol Status: Chronic Past Medical History - Allergies and Home Meds Allergies/Adverse Reactions: Allergies No Known Allergies Allergy (Verified 09/19/19 21:52) Primary Care Physician: Leoncio Chavez MD [Primary Care Provider] - Prior records reviewed: Yes Smoking Status: Never smoker Review of Systems General: Denies: Chills, Fever Eyes: Denies: Visual changes - bilaterally ENT: Denies: Bilateral ear pain Cardiovascular: Denies: Chest pain Respiratory: Denies: Dyspnea, Cough Gastrointestinal: Reports: Abdominal pain. Denies: Nausea, Vomiting, Diarrhea Genitourinary: Denies: Dysuria Musculoskeletal: Denies: Swelling, Extremity Pain Skin: Denies: Rash Neurological: Denies: Headache Hematologic: Denies: Easy bruising, Easy bleeding Allergy: Denies: Uticaria Physical Exam Vital Signs/Narrative: Vital Signs 09/19/19 21:50 98.0 F 89 18 161/87 H 95 Inital Vital Signs reviewed: Yes General: Well nourished, Well developed Head: Normocephalic ENT: Moist mucous membranes Neck: Supple Cardiovascular: Regular rate, Regular rhythm Respiratory: No distress, CTA bilaterally Abdomen: Soft, Tender - Lower abdominal tenderness., Hypoactive bowel sounds. Negative for: Guarding Extremities: Nontender Skin: Normal color Neurological: Alert, Oriented x3 Psychological: Normal affect Diagnostic/Tx/Re-eval Laboratory Results Urine Color Yellow Urine Clarity Clear Urine pH 6.5 Ur Specific [place] 1.010 Urine Protein Negative Urine Glucose (UA) Normal Urine Ketones Negative Urine Occult Blood Negative Urine Nitrite Negative Urine Bilirubin Negative Urine Urobilinogen Normal Ur Leukocyte Esterase Negative Urine RBC 0 SEEN Urine WBC 0 SEEN Ur Squamous Epith Cells 0 SEEN Urine Bacteria 0 SEEN Urine Mucus 0 SEEN - Medical Decision Making Bladder scan was performed at bedside and showed greater than 200 cc. Noriega catheter was placed without difficulty by nursing staff. He immediately had 1200 cc of urine drained. Urinalysis is unremarkable. Patient states he no longer has the sensation that he needs have a bowel movement. His medication list is reviewed. He does take Zyrtec but as an antihistamine this is not as likely as others to cause urinary retention. He denies taking Benadryl or any other medications recently. Leg bag will be provided and patient will follow-up Dr. Ferguson next week. ED Disposition - Plan for ED Patient: Disposition: Home or Assisted Living Diagnosis: Urinary retention Instructions: ED Urinary Retention Male Referrals: Leoncio Chavez MD [Primary Care Provider] - Wei Ferguson MD [STAFF PHYSICIAN] - 3-5 Days What to do if you have Problems For any increased pain, shortness of breath, bleeding, nausea or vomiting, chest pain, or any unexpected problems, contact your Primary Care Provider. Call [facility] ([phone]) or report to the closest Emergency Room. Call 911 if necessary. 09/19/19 9775 Date Lilo Rudd MD Cosigner Signature (If Indicated): Date CC: Leoncio Chavez MD Normal [facility] Urinalysis, Completeon 09-19 Bacteria LM.HPF (Urine sed) [#/Area] 0 SEEN Normal None Seen [facility] Comment on above: Order Comment: How w as Urine Obtained? CATHETER SPECIMEN Performed By: #### L [id number] #### [facility] [address] [place], [address] MUCUS, URINE 0 SEEN Normal [facility] Comment on above: Order Comment: How w as Urine Obtained? CATHETER SPECIMEN Performed By: #### L [id number] #### [facility] [address] [place], [address] RBC (U) [#/Vol] 0 SEEN Normal 0-5 [facility] Comment on above: Order Comment: How w as Urine Obtained? CATHETER SPECIMEN Performed By: #### L [id number] #### [facility] [address] [place], [address] SQUAM EPI 0 SEEN Normal [address] [place] [address] Comment on above: Order Comment: How w as Urine Obtained? CATHETER SPECIMEN Performed By: #### L [id number] #### [facility] [address] [place], [address] WBC (Bld) [#/Vol] 0 SEEN Normal [address] [place] [address] Comment on above: Order Comment: How w as Urine Obtained? CATHETER SPECIMEN Performed By: #### L [id number] #### [facility] [address] [place], [address] BILIRUBIN URINE Negative Normal Negative [facility] Comment on above: Order Comment: How w as Urine Obtained? CATHETER SPECIMEN Performed By: #### L [id number] #### [facility] [address] [place], [address] Clarity (U) Clear Normal Clear [facility] Comment on above: Order Comment: How w as Urine Obtained? CATHETER SPECIMEN Performed By: #### L [id number] #### [facility] [address] [place], [address] Color (U) Yellow Normal Yellow [facility] Comment on above: Order Comment: How w as Urine Obtained? CATHETER SPECIMEN Performed By: #### L 400.0001 #### [facility] [address] [place], [address] GLUCOSE, UR Normal Normal Normal [facility] Comment on above: Order Comment: How w as Urine Obtained? CATHETER SPECIMEN Performed By: #### L [id number] #### [facility] [address] [place], [address] KETONE UR Negative Normal Negative [facility] Comment on above: Order Comment: How w as Urine Obtained? CATHETER SPECIMEN Performed By: #### L [id number] #### [facility] [address] [place], [address] LEUK ESTERASE Negative Normal Negative [facility] Comment on above: Order Comment: How w as Urine Obtained? CATHETER SPECIMEN Performed By: #### L [id number] #### [facility] [address] [place], [address] NITRITE UR Negative Normal Negative [facility] Comment on above: Order Comment: How w as Urine Obtained? CATHETER SPECIMEN Performed By: #### L [id number] #### [facility] [address] [place], [address] OCCULT BLOOD-UR Negative Normal Negative [facility] Comment on above: Order Comment: How w as Urine Obtained? CATHETER SPECIMEN Performed By: #### L [id number] #### [facility] [address] [place], [address] pH UR 6.5 Normal 5.0 - 8.0 [facility] Comment on above: Order Comment: How w as Urine Obtained? CATHETER SPECIMEN Performed By: #### L [id number] #### [facility] [address] [place], [address] PROT DIPSTX Negative Normal Negative [facility] Comment on above: Order Comment: How w as Urine Obtained? CATHETER SPECIMEN Performed By: #### L [id number] #### [facility] [address] [place], [address] SP.GR. DIPSTX 1.010 Normal 1.002-1.030 [facility] Comment on above: Order Comment: How w as Urine Obtained? CATHETER SPECIMEN Performed By: #### L [id number] #### [facility] [address] [place], [address] UROBILI Normal Normal Normal [facility] Comment on above: Order Comment: How w as Urine Obtained? CATHETER SPECIMEN Performed By: #### L [id number] #### [facility] [address] [place], [address] Vital Signs Date Time Vital Sign Value Performing Clinician Mae roach 10-28-2024 15:11-0400 Body mass index (BMI) [Ratio] 33.26 kg/m2 Florencia Podlogar DIRECTOR GEOTHERMAL OPERATIONS.SYSTEMS TRAINER Work Phone: [facility] 10-28-2024 [id number] Body weight 100.7 kg Florencia Podlogar DIRECTOR GEOTHERMAL OPERATIONS.SYSTEMS TRAINER Work Phone: [facility] 10-28-2024 15:11-0400 Diastolic blood pressure 56 mm[Hg] Florencia Podlogar DIRECTOR GEOTHERMAL OPERATIONS.SYSTEMS TRAINER Work Phone: [facility] 10-28-2024 15:11-0400 Heart rate 71 /min Florencia Podlogar DIRECTOR GEOTHERMAL OPERATIONS.SYSTEMS TRAINER Work Phone: [facility] 10-28-2024 15:11-0400 Respiratory rate 18 /min Florencia Podlogar DIRECTOR GEOTHERMAL OPERATIONS.SYSTEMS TRAINER Work Phone: [facility] 10-28-2024 15:11-0400 SaO2% (BldA) [Mass fraction] 93 % Florencia Podlogar DIRECTOR GEOTHERMAL OPERATIONS.SYSTEMS TRAINER Work Phone: [facility] 10-28-2024 15:11-0400 Systolic blood pressure 96 mm[Hg] Florencia Podlogar DIRECTOR GEOTHERMAL OPERATIONS.SYSTEMS TRAINER Work Phone: [facility] 07-05-2024 08:08-0500 Body mass index (BMI) [Ratio] 33.56 kg/m2 Angy Luciano PA-C Work Phone: [facility] 07-05-2024 08:08-0500 Body temperature 97.5 [degF] Angy Luciano PA-C Work Phone: [facility] 07-05-2024 08:08-0500 Body weight 101.61 kg Angy Luciano PA-C Work Phone: [facility] 07-05-2024 08:08-0500 Diastolic blood pressure 53 mm[Hg] Angy Luciano PA-C Work Phone: [facility] 07-05-2024 08:08-0500 Heart rate 71 /min Angy Luciano PA-C Work Phone: [facility] 07-05-2024 08:08-0500 Respiratory rate 18 /min Angy Luciano PA-C Work Phone: [facility] 07-05-2024 08:08-0500 SaO2% (BldA) [Mass fraction] 98 % Angy Luciano PA-C Work Phone: [facility] 07-05-2024 08:08-0500 Systolic blood pressure 96 mm[Hg] Angy Luciano PA-C Work Phone: [facility] 06-08-2024 10:12-0500 Body height 174 cm Leoncio Chavez MD Work Phone: [facility] 06-08-2024 10:12-0500 Body mass index (BMI) [Ratio] 32.96 kg/m2 Leoncio Chavez MD Work Phone: [facility] 06-08-2024 10:12-0500 Body weight 99.79 kg Leoncio Chavez MD Work Phone: [facility] 06-08-2024 10:12-0500 Diastolic blood pressure 58 mm[Hg] Leoncio Chavez MD Work Phone: [facility] 06-08-2024 10:12-0500 Heart rate 72 /min Leoncio Chavez MD Work Phone: [facility] 06-08-2024 10:12-0500 Respiratory rate 16 /min Leoncio Chavez MD Work Phone: [facility] 06-08-2024 10:12-0500 Systolic blood pressure 98 mm[Hg] Leoncio Chavez MD Work Phone: [facility] 01-30-2024 08:26-0400 Body height 175.3 cm James Quick DO Work Phone: [facility] 01-30-2024 08:26-0400 Body mass index (BMI) [Ratio] 33.99 kg/m2 James Quick DO Work Phone: [facility] 01-30-2024 08:26-0400 Body weight 104.4 kg James Quick DO Work Phone: [facility] 01-30-2024 08:26-0400 Diastolic blood pressure 66 mm[Hg] James Quick DO Work Phone: [facility] 01-30-2024 08:26-0400 Heart rate 75 /min James Quick DO Work Phone: [facility] 01-30-2024 08:26-0400 SaO2% (BldA) [Mass fraction] 96 % James Quick DO Work Phone: [facility] 01-30-2024 08:26-0400 Systolic blood pressure 118 mm[Hg] James Quick DO Work Phone: [facility] 12-22-2023 08:11-0400 Body mass index (BMI) [Ratio] 33.97 kg/m2 Kedar De Leon APRN.SYSTEMS TRAINER Work Phone: [facility] 12-22-2023 08:11-0400 Body weight 104.33 kg Kedar De Leon APRN.SYSTEMS TRAINER Work Phone: [facility] 12-22-2023 08:11-0400 Diastolic blood pressure 62 mm[Hg] Kedar De Leon DIRECTOR GEOTHERMAL OPERATIONS.SYSTEMS TRAINER Work Phone: [facility] 12-22-2023 08:11-0400 Heart rate 65 /min Kedar De Leon DIRECTOR GEOTHERMAL OPERATIONS.SYSTEMS TRAINER Work Phone: [facility] 12-22-2023 08:11-0400 Respiratory rate 14 /min Kedar De Leon DIRECTOR GEOTHERMAL OPERATIONS.SYSTEMS TRAINER Work Phone: [facility] 12-22-2023 08:11-0400 Systolic blood pressure 108 mm[Hg] Kedar De Leon DIRECTOR GEOTHERMAL OPERATIONS.SYSTEMS TRAINER Work Phone: [facility] 08-30-2023 11:30-0400 Body height 175.3 cm Jamesrinku Quick DO Work Phone: [facility] 08-30-2023 11:30-0400 Body weight 108 kg Jamesrinku Quick DO Work Phone: [facility] 08-30-2023 11:30-0400 Diastolic blood pressure 58 mm[Hg] James Ynes DO Work Phone: [facility] 08-30-2023 11:30-0400 Heart rate 68 /min Jamesrinku Quick DO Work Phone: [facility] 08-30-2023 11:30-0400 SaO2% (BldA) [Mass fraction] 94 % James Quick DO Work Phone: [facility] 08-30-2023 11:30-0400 Systolic blood pressure 124 mm[Hg] James Baldwinins DO Work Phone: [facility] 06-23-2023 15:19-0500 Body height 175.3 cm James Ynes DO Work Phone: [facility] 06-23-2023 15:19-0500 Body weight 108.8 kg James Ynes DO Work Phone: [facility] 06-23-2023 15:19-0500 Diastolic blood pressure 68 mm[Hg] James Baldwinins DO Work Phone: [facility] 06-23-2023 15:19-0500 Heart rate 77 /min James Quick DO Work Phone: [facility] 06-23-2023 15:19-0500 Respiratory rate 16 /min James Quick DO Work Phone: [facility] 06-23-2023 15:19-0500 SaO2% (BldA) [Mass fraction] 96 % James Quick DO Work Phone: [facility] 06-23-2023 15:19-0500 Systolic blood pressure 124 mm[Hg] James Quick DO Work Phone: [facility] 11-25-2022 08:14-0400 Body temperature 97.3 [degF] Angy Luciano PA-C Work Phone: [facility] 11-25-2022 08:14-0400 Body weight 108.86 kg Angy Luciano PA-C Work Phone: [facility] 11-25-2022 08:14-0400 Diastolic blood pressure 60 mm[Hg] Angy Luciano PA-C Work Phone: [facility] 11-25-2022 08:14-0400 Heart rate 68 /min Angy Luciano PA-C Work Phone: [facility] 11-25-2022 08:14-0400 Respiratory rate 18 /min Angy Luciano PA-C Work Phone: [facility] 11-25-2022 08:14-0400 Systolic blood pressure 136 mm[Hg] Angy Luciano PA-C Work Phone: [facility] 05-27-2022 08:33-0500 Diastolic blood pressure 68 mm[Hg] Leoncio Chavez MD Work Phone: [facility] 05-27-2022 08:33-0500 Systolic blood pressure 128 mm[Hg] Leoncio Chavez MD Work Phone: [facility] 05-27-2022 08:15-0500 Body height 175.3 cm Leoncio Chavez MD Work Phone: [facility] 05-27-2022 08:15-0500 Body weight 102.97 kg Leoncio Chavez MD Work Phone: [facility] 05-27-2022 08:15-0500 Heart rate 76 /min Leoncio Chavez MD Work Phone: [facility] 05-27-2022 08:15-0500 Respiratory rate 16 /min Leoncio Chavez MD Work Phone: [facility] 11-09-2021 08:24-0400 Body height 175.3 cm James Quick DO Work Phone: [facility] 11-09-2021 08:24-0400 Body weight 105.23 kg James Quick DO Work Phone: [facility] 11-09-2021 08:24-0400 Diastolic blood pressure 60 mm[Hg] James Quick DO Work Phone: [facility] 11-09-2021 08:24-0400 Heart rate 63 /min James Quick DO Work Phone: [facility] 11-09-2021 08:24-0400 SaO2% (BldA) [Mass fraction] 98 % James Quick DO Work Phone: [facility] 11-09-2021 08:24-0400 Systolic blood pressure 122 mm[Hg] James Quick DO Work Phone: [facility] Encounters Encounter Date Encounter Type Care Provider Facility Start: 10-28-2024 End: 10-28-2024 Patient encounter procedure Florencia Ventura APRN.SYSTEMS TRAINER Work Phone: [facility] Comment on above: Irritant contact milan matitis due to plants, except food Start: 10-28-2024 ambulatory FLORENCIA PODLOGLAUREN Facility :[facility] Start: 10-28-2024 End: 10-28-2024 Telephone encounter Florencia Ventura APRN.SYSTEMS TRAINER Work Phone: [facility] Comment on above: Appointment; Patient Update Start: 08-02-2024 End: 08-02-2024 Telephone encounter Angy Luciano PA-C Work Phone: [facility] [place] Comment on above: Patient Update Start: 07-23-2024 End: 07-23-2024 Refill Leoncio Chavez MD Work Phone: [facility] [place] Comment on above: Refill Request Start: 07-05-2024 End: 07-05-2024 ambulatory ANGY LUCIANO Facility:[facility] Start: 07-05-2024 End: 07-05-2024 Patient encounter procedure Angy Luciano PA-C Work Phone: [facility] [place] Comment on above: Hypertension, essent ial (Primary Dx) Start: 06-11-2024 End: 06-12-2024 Telephone encounter Leoncio Chavez MD Work Phone: [facility] [place] Comment on above: Results Start: 06-08-2024 End: 06-08-2024 ambulatory LEONCIO CHAVEZ Facility:[facility] Start: 06-08-2024 End: 06-08-2024 Patient encounter procedure Leoncio Chavez MD Work Phone: [facility] [place] Comment on above: Medicare annual well ness visit, subsequent (Primary Dx); Mixed hyperlipidemia; Essential hypertension; Elevated hemoglobin A1c; Coronary artery disease due to lipid rich plaque; Chronic diastolic CHF (congestive heart failure) (HCC); Anemia of chronic disease; Obesity, Class II, BMI 35-39.9; Obstructive sleep apnea; Benign non-nodular prostatic hyperplasia without lower urinary tract symptoms; Ingrown nail of second toe of left foot; Advance directive discussed with patient; Encounter for immunization; Elevated PSA Start: 06-05-2024 End: 06-05-2024 Telephone encounter Dimas Russell MA [facility] [place] Comment on above: Orders Start: 01-30-2024 End: 01-30-2024 ambulatory JAMES QUICK Facility:[facility] Start: 01-30-2024 End: 01-30-2024 Patient encounter procedure James Quick DO Work Phone: Cardiology Comment on above: Chronic diastolic CH F (congestive heart failure) (HCC) (Primary Dx); Essential hypertension; Mixed hyperlipidemia; Abnormal nuclear stress test; Prediabetes; Abnormal ankle brachial index (DIVYA) Start: 12-25-2023 Telephone encounter Kedar clark APRN.[facility] Work Phone: [facility] Comment on above: Results Start: 12-22-2023 End: 12-22-2023 Patient encounter procedure Kedar De Leon APRN.SYSTEMS TRAINER Work Phone: [facility] Comment on above: Essential hypertensi on (Primary Dx); Screening for depression; Encounter for screening examination for other mental health and behavioral disorders; Chronic diastolic CHF (congestive heart failure) (HCC); Coronary artery disease due to lipid rich plaque; Mixed hyperlipidemia; Obesity, Class II, BMI 35-39.9; Obstructive sleep apnea; Benign non-nodular prostatic hyperplasia without lower urinary tract symptoms Start: 12-22-2023 End: 12-22-2023 ambulatory LEONCIO CHAVEZ Facility:[facility] Start: 10-06-2023 Telephone encounter James Quick DO Work Phone: [facility] Start: 08-30-2023 Telephone encounter James Quick DO Work Phone: [facility] Comment on above: Scheduling (PVR - An kle Brachial Index) Start: 08-30-2023 End: 08-31-2023 ambulatory UNKNOWN PROVIDER Facility:[facility] Start: 08-30-2023 End: 08-30-2023 Patient encounter procedure James Quick DO Work Phone: [facility] Comment on above: Chronic diastolic CH F (congestive heart failure) (HCC) (Primary Dx); Coronary artery disease due to lipid rich plaque; Essential hypertension; Mixed hyperlipidemia; Obstructive sleep apnea Start: 06-23-2023 End: 06-23-2023 ambulatory UNKNOWN PROVIDER Facility:[facility] Start: 06-23-2023 End: 06-23-2023 Patient encounter procedure James Quick DO Work Phone: [facility]iology Comment on above: Chronic diastolic CH F (congestive heart failure) (HCC) (Primary Dx); Coronary artery disease due to lipid rich plaque; Essential hypertension; Mixed hyperlipidemia; Decreased pulses in feet Start: 06-09-2023 End: 06-12-2023 ambulatory UNKNOWN PROVIDER Facility:[facility] Start: 06-07-2023 Patient encounter procedure James Quick DO Work Phone: [facility] Work Phone: Start: 12-30-2022 Refill Leoncio valenzuela MD Work Phone: [facility] [place] Comment on above: Refill Request Start: 11-28-2022 Telephone encounter Angy petty PA-C Work Phone: [facility] [place] Comment on above: Results Start: 11-25-2022 End: 11-25-2022 Patient encounter procedure Angy Luciano PA-C Work Phone: [facility] [place] Comment on above: Essential hypertensi on (Primary Dx); Mixed hyperlipidemia; Elevated hemoglobin A1c; Chronic diastolic CHF (congestive heart failure) (HCC); Coronary artery disease due to lipid rich plaque; Obstructive sleep apnea; Elevated PSA; Weight gain Start: 05-28-2022 Telephone encounter Leoncio Chavez MD Work Phone: [facility] [place] Comment on above: Results Start: 05-27-2022 End: 05-27-2022 Patient encounter procedure Leoncio Chavez MD Work Phone: [facility] [place] Comment on above: Medicare annual well ness visit, subsequent (Primary Dx); Essential hypertension; Mixed hyperlipidemia; Elevated hemoglobin A1c; Coronary artery disease due to lipid rich plaque; Chronic diastolic CHF (congestive heart failure) (HCC); Anemia of chronic disease; Elevated PSA; Benign non-nodular prostatic hyperplasia without lower urinary tract symptoms; Encounter for immunization; Advance directive discussed with patient; Bilateral impacted cerumen Start: 11-18-2021 Refill James Quick DO Work Phone: [facility]iology Comment on above: Refill Request Start: 11-09-2021 End: 11-09-2021 Patient encounter procedure James Quick DO Work Phone: [facility]iology Comment on above: Chronic diastolic CH F (congestive heart failure) (HCC) (Primary Dx); Abnormal nuclear stress test; Essential hypertension; Mixed hyperlipidemia Start: 10-16-2021 Telephone encounter Leoncio Chavez MD Work Phone: [facility] [place] Comment on above: Results Start: 03-20-2021 Patient encounter procedure Leoncio Chavez MD Work Phone: [facility] Work Phone: Procedures Date Procedure Procedure Detail Performing Clinician Start: 06-08-2024 PFIZER-BIONTECH COVI D-19 VACCINE AGE 12+ YR (COMIRNATY) Leoncio Chavez MD Work Phone: Start: 12-22-2023 Adult depression scr eening assessment Kedar De Leon DIRECTOR GEOTHERMAL OPERATIONS.SYSTEMS TRAINER Work Phone: Start: 05-27-2022 INFLUENZA SEASONAL QUADRIVALENT HIGH DOSE AGE 65+ Leoncio Chavez MD Work Phone: Start: 05-27-2022 PFIZER-BIONTECH COVI D-19 BIVALENT BOOSTER VACCINE, AGE 12+ YR Leoncio Chavez MD Work Phone: Plan of Treatment Date Care Activity Detail Author Start: 06-08-2027 [facility] Start: 12-21-2026 [facility] Start: 06-07-2026 Diabetes Screening Diabetes [facility] Start: 12-09-2025 DIABETES SCREEN DIABETES SCREEN [facility] Start: 11-25-2025 DIABETES SCREEN DIABETES SCREEN [facility] Start: 06-08-2025 Hepatitis B surface antibody level LDL Cholesterol [facility] Start: 06-08-2025 RSV Vaccine (1 - 1-d ose 75+ series) RSV Vaccine (1 - 1-dose 75+ series) [facility] Comment on above: Postponed from 05/20 (Insurance Coverage) Start: 06-08-2025 Shingrix Vaccine (1 of 2) Shingrix Vaccine (1 of 2) [facility] Comment on above: Postponed from 05/20 (Insurance Coverage) Start: 06-08-2025 Urine microalbumin profile DTaP,Tdap,Td Vaccine (1 - Tdap) [facility] Comment on above: Postponed from 05/20 (Insurance Coverage) Start: 05-27-2025 DIABETES SCREEN DIABETES SCREEN [facility] Start: 05-26-2025 End: 05-26-2025 Patient encounter procedure 05/26/2025 8:20 AM EST Office Visit Cardiology [address] [place] [address] Soraya Reid MD [address], [address] [place], [place] [id number] rescheduled from 11/25 Cardiology Comment on above: rescheduled from Start: 12-21-2024 Anxiety Screening Anxiety Screening [facility] Start: 12-21-2024 Depression Screening Depression Scre ening [facility] Start: 12-21-2024 Hepatitis B surface antibody level LDL Cholesterol [facility] Start: 12-06-2024 End: 12-06-2024 Patient encounter procedure 12/06/2024 8:00 AM EDT Office Visit [facility] [address] [place] [address] Angy Luciano PA-C [address] [place] [address] 6 month follow up [facility] Comment on above: 6 month follow up Start: 11-25-2024 End: 11-25-2024 Patient encounter procedure 11/25/2024 1:00 PM EDT Office Visit Cardiology [address] [place] [address] Soraya Reid MD [address], [address] [place], [place] [id number] transferring care from Dr. Aponte in [place] [facility] Comment on above: transferring care fr om Dr. Aponte in [place] Start: 11-22-2024 End: 02-21-2025 Basic metabolic 2000 panel - Serum or Plasma BASIC METABOLIC PANEL Lab Routine Mixed hyperlipidemia Essential hypertension Chronic diastolic CHF (congestive heart failure) (HCC) Expected: 11/22/2024, Expires: 02/21/2025 [facility] Comment on above: Expected: 11/22/2024 , Expires: 02/21/2025 Start: 11-22-2024 End: 02-21-2025 Hemoglobin A1c in Blood HEMOGLOBIN A1C Lab Routine Elevated hemoglobin A1c Expected: 11/22/2024, Expires: 02/21/2025 [facility] Work Phone: Comment on above: Expected: 11/22/2024 , Expires: 02/21/2025 Start: 11-22-2024 End: 02-21-2025 LIPID PANEL, NONFASTING LIPID PANEL, NONFASTING Lab Routine Mixed hyperlipidemia Essential hypertension Coronary artery disease due to lipid rich plaque Expected: 11/22/2024, Expires: 02/21/2025 [facility] Comment on above: Expected: 11/22/2024 , Expires: 02/21/2025 Start: 11-22-2024 End: 02-21-2025 Prostate Specific Ag Free [Mass/volume] in Serum or Plasma PROSTATE SPECIFIC ANTIGEN, FREE Lab Routine Elevated PSA Expected: 11/22/2024, Expires: 02/21/2025 [facility] Comment on above: Expected: 11/22/2024 , Expires: 02/21/2025 Start: 10-15-2024 DIABETES SCREEN DIABETES SCREEN [facility] Start: 10-01-2024 End: 10-01-2024 Patient encounter procedure 10/01/2024 8:20 AM EDT Office Visit Cardiology [address] [address] James Quick DO [address] [place] [address] 8 month follow up Cardiology Comment on above: 8 month follow up Start: 07-05-2024 End: 07-05-2024 Patient encounter procedure 07/05/2024 8:00 AM EST Office Visit [facility] [address] [place] [phone] Angy Luciano PA-C [address] [facility] [place] [place] [id number] 4 week follow up HTN [facility] Comment on above: 4 week follow up HTN Start: 06-19-2024 End: 06-19-2024 Patient encounter procedure 06/19/2024 8:40 AM EST Office Visit [facility] [place] [address] [facility] [place] [address] Leoncio Chavez MD [address] [facility] [place], [place] [phone] medicare wellness [facility] [place] Comment on above: medicare wellness Start: 06-08-2024 End: 06-08-2024 Patient encounter procedure 06/08/2024 10:00 AM EST Office Visit [facility] [place] [address] [place] [address] Leoncio Chavez MD [address] [facility] [place] [phone] medicare wellness [facility] [place] Comment on above: medicare wellness Start: 06-07-2024 Hepatitis B surface antibody level LDL Cholesterol [facility] Start: 06-07-2024 RSV Vaccine (1 - 1-d ose 60+ series) RSV Vaccine (1 - 1-dose 60+ series) [facility] Comment on above: Postponed from 05/20 (Insurance Coverage) Start: 06-07-2024 RSV Vaccine (1 - 1-d ose 75+ series) RSV Vaccine (1 - 1-dose 75+ series) [facility] Comment on above: Postponed from 05/20 (Insurance Coverage) Start: 06-07-2024 Shingrix Vaccine (1 of 2) Shingrix Vaccine (1 of 2) [facility] Comment on above: Postponed from 05/20 (Insurance Coverage) Start: 06-07-2024 Urine microalbumin profile DTaP,Tdap,Td Vaccine (1 - Tdap) [facility] Comment on above: Postponed from 05/20 (Insurance Coverage) Start: 06-05-2024 End: 09-04-2024 CBC panel - Blood by Automated count COMPLETE BLOOD COUNT Lab Routine Anemia of chronic disease Medication management Expected: 06/05/2024, Expires: 09/04/2024 [facility] Comment on above: Expected: 06/05/2024 , Expires: 09/04/2024 Start: 06-05-2024 End: 04-16-2025 Comprehensive metabolic 2000 panel - Serum or Plasma COMPREHENSIVE METABOLIC PANEL Lab Routine Essential hypertension Mixed hyperlipidemia Expected: 06/05/2024, Expires: 09/04/2024 [facility] Work Phone: Comment on above: Expected: 06/05/2024 , Expires: 09/04/2024 Start: 06-05-2024 End: 09-04-2024 Hemoglobin A1c in Blood HEMOGLOBIN A1C Lab Routine Elevated hemoglobin A1c Expected: 06/05/2024, Expires: 09/04/2024 [facility] Comment on above: Expected: 06/05/2024 , Expires: 09/04/2024 Start: 06-05-2024 End: 09-04-2024 LIPID PANEL, NONFASTING LIPID PANEL, NONFASTING Lab Routine Essential hypertension Coronary artery disease due to lipid rich plaque Mixed hyperlipidemia Expected: 06/05/2024, Expires: 09/04/2024 [facility] Comment on above: Expected: 06/05/2024 , Expires: 09/04/2024 Start: 06-05-2024 End: 09-04-2024 Prostate Specific Ag Free [Mass/volume] in Serum or Plasma PROSTATE SPECIFIC ANTIGEN, FREE Lab Routine Elevated PSA Expected: 06/05/2024, Expires: 09/04/2024 [facility] Comment on above: Expected: 06/05/2024 , Expires: 09/04/2024 Start: 06-05-2024 End: 09-04-2024 Urinalysis complete panel - Urine URINALYSIS, WITH MICROSCOPIC Lab Routine Essential hypertension Mixed hyperlipidemia Expected: 06/05/2024, Expires: 09/04/2024 [facility] Comment on above: Expected: 06/05/2024 , Expires: 09/04/2024 Start: 05-22-2024 Advance Directive Discussion Advance Directive Discussion [facility] Start: 01-30-2024 End: 01-30-2024 Patient encounter procedure Cardiology Comment on above: 5 mo f/u Start: 01-21-2024 Covid-19 Vaccine () Covid-19 Vaccine () [facility] Start: 01-21-2024 Covid-19 Vaccine () Covid-19 Vaccine () [facility] Start: 01-21-2024 Influenza vaccination Influenza Vacc ine (#1) [facility] Start: 01-08-2024 End: 04-08-2024 Basic metabolic 2000 panel - Serum or Plasma BASIC METABOLIC PANEL Lab Routine Blood creatinine increased compared with prior measurement Expected: 01/08/2024, Expires: 04/08/2024 [facility] Work Phone: Comment on above: Expected: 01/08/2024 , Expires: 04/08/2024 Start: 12-22-2023 End: 12-22-2023 Patient encounter procedure 12/22/2023 8:20 AM EDT Office Visit [facility] [address] [place] [address] Kedar De Leon APRN.SYSTEMS TRAINER [address] [place] [address] 6 month follow up [facility] Comment on above: 6 month follow up Start: 11-26-2023 Hepatitis B surface antibody level LDL CHOLESTEROL [facility] Start: 09-01-2023 Covid-19 Vaccine ( season) Covid-19 Vaccine ( season) [facility] Start: 05-27-2023 Hepatitis B surface antibody level LDL CHOLESTEROL [facility] Start: 05-22-2023 Behavioral Health Screening Behavioral Health Screening [facility] Start: 01-20-2023 Influenza vaccination INFLUENZA (#1) [facility] Start: 12-12-2022 End: 02-11-2023 Basic metabolic 2000 panel - Serum or Plasma BASIC METABOLIC PNL Lab Routine Renal insufficiency Expected: 12/12/2022, Expires: 02/11/2023 [facility] Work Phone: Comment on above: Expected: 12/12/2022 , Expires: 02/11/2023 Start: 12-12-2022 End: 02-11-2023 Renal function 2000 panel - Serum or Plasma RENAL FUNCTION PANEL Lab Routine Renal insufficiency Expected: 12/12/2022, Expires: 02/11/2023 [facility] Work Phone: Comment on above: Expected: 12/12/2022 , Expires: 02/11/2023 Start: 11-25-2022 End: 01-25-2023 Basic metabolic 2000 panel - Serum or Plasma [facility] Work Phone: Comment on above: Expected: 11/25/2022 , Expires: 01/25/2023 Start: 11-25-2022 End: 01-25-2023 Hemoglobin A1c in Blood [facility] Work Phone: Comment on above: Expected: 11/25/2022 , Expires: 01/25/2023 Start: 11-25-2022 End: 01-25-2023 LIPID PANEL, NONFASTING [facility] Work Phone: Comment on above: Expected: 11/25/2022 , Expires: 01/25/2023 Start: 11-25-2022 End: 01-25-2023 Prostate Specific Ag Free [Mass/volume] in Serum or Plasma [facility] Work Phone: Comment on above: Expected: 11/25/2022 , Expires: 01/25/2023 Start: 11-25-2022 End: 01-25-2023 Thyrotropin [Units/volume] in Serum or Plasma [facility] Work Phone: Comment on above: Expected: 11/25/2022 , Expires: 01/25/2023 Start: 11-25-2022 End: 01-25-2023 Thyroxine (T4) free [Mass/volume] in Serum or Plasma [facility] Work Phone: Comment on above: Expected: 11/25/2022 , Expires: 01/25/2023 Start: 11-09-2022 BP CONTROLLED (<130/80) BP CONTROLLE D (<130/80) [facility] Start: 10-15-2022 ANNUAL PCP TEAM CIGAR MACHINE FEEDER ALTAF DISEASE VISIT ANNUAL PCP TEAM CHRONIC DISEASE VISIT [facility] Start: 10-15-2022 Hepatitis B surface antibody level LDL CHOLESTEROL [facility] Start: 09-24-2022 COVID-19 VACCINE (6 - Moderna series) COVID-19 VACCINE (6 - Moderna series) [facility] Start: 01-20-2022 Influenza vaccination INFLUENZA (#1) [facility] Start: 11-16-2021 End: 01-16-2022 CBC W Auto Differential panel - Blood CBC + DIFF Lab Routine Anemia of chronic disease Expected: 11/16/2021, Expires: 01/16/2022 [facility] Work Phone: Comment on above: Expected: 11/16/2021 , Expires: 01/16/2022 Start: 08-21-2021 COVID-19 VACCINE (4 - Booster for Moderna series) COVID-19 VACCINE (4 - Booster for Moderna series) [facility] Start: 05-22-2021 ADVANCE DIRECTIVE DISCUSSION ADVANCE DIRECTIVE DISCUSSION [facility] Start: 12-22-2020 BP CONTROLLED (<130/80) BP CONTROLLE D (<130/80) [facility] Start: 1991 SHINGRIX VACCINE (1 of 2) SHINGRIX VACCINE (1 of 2) [facility] Start: 1960 Urine microalbumin profile DTAP,TDAP,TD (1 - Tdap) [facility] End: 11-09-2022 ECG COMPLETE ECG COMPLETE ECG Routine Chronic diastolic CHF (congestive heart failure) (HCC) Abnormal nuclear stress test Essential hypertension Mixed hyperlipidemia 1 Occurrences starting 11/09/2021 until 11/09/2022 [facility] Work Phone: Comment on above: 1 Occurrences starti ng 11/09/2021 until 11/09/2022 Removal impacted cerumen irrigation/lvg unilat AMBULATORY EAR LAVAGE/IRRIGATION Procedures Routine Bilateral impacted cerumen Ordered: 05/27/2022 [facility] Work Phone: Comment on above: Ordered: 05/27/2022 [facility] Immunizations Immunization Date Immunization Notes Care Provider German wills 06-08-2024 COVID-19 vaccine, ag e 12+ yr ([employer] [facility]) Leoncio Chavez MD Work Phone: [facility] 06-08-2024 influenza, high dose seasonal, preservative-free Leoncio Chavez MD Work Phone: [facility] 01-31-2024 Seasonal trivalent influenza vaccine, adjuvanted, preservative free Angy Luciano PA-C Work Phone: [facility] 06-07-2023 influenza (HD-IIV4) vaccine, age 65+ yr, high dose, quadrivalent, PF (FLUZONE HIGH-DOSE) James Ynes DO Work Phone: [facility] 06-07-2023 influenza virus vacc ine, unspecified formulation Kedar De Leon DIRECTOR GEOTHERMAL OPERATIONS.SYSTEMS TRAINER Work Phone: [facility] 05-02-2023 COVID-19 vaccine, ag e 12+ yr, season ([employer]) James Quick DO Work Phone: [facility] Work Phone: 05-27-2022 COVID-19 booster vaccine, age 12+ yr, bivalent ([employer]) Leoncio Chavez MD Work Phone: [facility] 05-27-2022 influenza, high-dose , quadrivalent vaccine (FLUZONE HIGH DOSE QUADRIVALENT) Leoncio Chavez MD Work Phone: [facility] 03-20-2021 influenza, high-dose , quadrivalent vaccine (FLUZONE HIGH DOSE QUADRIVALENT) Leoncio Chavez MD Work Phone: [facility] 03-20-2021 pneumococcal polysaccharide vaccine, 23 valent Leoncio Chavez MD Work Phone: [facility] 06-30-2020 influenza, high-dose , quadrivalent vaccine (FLUZONE HIGH DOSE QUADRIVALENT) Leoncio Chavez MD Work Phone: [facility] 06-24-2019 influenza, high dose seasonal, preservative-free Leoncio Chavez MD Work Phone: [facility] 06-20-2018 influenza, high dose seasonal, preservative-free Leoncio Chavez MD Work Phone: [facility] 06-08-2017 influenza, injectabl e, quadrivalent, contains preservative Leoncio Chavez MD Work Phone: [facility] 05-31-2016 influenza, injectabl e, quadrivalent, contains preservative Leoncio Chavez MD Work Phone: [facility] Work Phone: 05-27-2015 influenza, injectabl e, quadrivalent, contains preservative Leoncio Chavez MD Work Phone: [facility] 05-27-2015 pneumococcal conjuga te vaccine, 13 valjudah Chavez MD Work Phone: [facility] 06-10-2013 pneumococcal polysaccharide vaccine, 23 valent Leoncio Chavez MD Work Phone: [facility] Work Phone: 02-08-2013 influenza virus vacc ine, unspecified formulation Leoncio Chavez MD Work Phone: [facility] Work Phone: 03-21-2012 influenza virus vacc ine, unspecified formulation Leoncio Chavez MD Work Phone: [facility] Work Phone: Payers Date Payer Category Payer Medicare MEDICARE MEDICAR E A AND B [id number] 2006-Present [phone] [facility] [address] [place] [address] Medicare [id number] 2006 Medicare [id number] 2006 Medicare [id number] Social History Date Type Detail Facility Start: 12-22-2016 End: 06-08-2024 Tobacco smoking status NHIS Ex-smoker [facility] Work Phone: End: 03-21-1962 History of tobacco use Current smoker [facility] Work Phone: Start: 12-22-2016 End: 06-08-2024 Tobacco use and exposure Smokeless tobacco non-user [facility] Work Phone: Start: 10-16-2021 End: 10-28-2024 Alcohol intake Current drinker of alcohol (finding) [facility] Start: 11-18-2019 History SDOH Alcohol Comment very rare - glass of wine, several times per year [facility] Start: 03-21-2012 End: 05-27-2022 Tobacco Comment total of a dozen cigarettes [facility] Start: 1940 Sex Assigned At Not on file C [facility] Start: 10-05-2021 End: 10-15-2021 Exposure to SARS-CoV-2 (event) Not sure [facility] End: [birth year]-21-1962 History of tobacco use Cigarette Smoker [facility] Start: 11-25-2022 End: 06-08-2024 History of Social function [facility] Work Phone: Start: 11-25-2022 End: 06-08-2024 Tobacco use panel [facility] Work Phone: Adult Depression Screening Assessment 4 [facility] Work Phone: How often to you hav e a drink containing alcohol? Monthly or less [facility] How many standard drinks containing alcohol do you have on a typical day? 1 or 2 [facility] How often do you hav e 6 or more drinks on 1 occasion? Never [facility] Functional Status Date Assessment Result Facility 06-09-2014 Are you deaf, or do you have serious difficulty hearing No 06/09/2014 7:38 PM [facility] No [facility] 06-09-2014 Are you blind, or do you have serious difficulty seeing, even when wearing glasses No 06/09/2014 7:38 PM [facility] No [facility] 06-09-2014 Do you have serious difficulty walking or climbing stairs No 06/09/2014 7:38 PM [facility] No [facility] 06-09-2014 Do you have difficul ty dressing or bathing No 06/09/2014 7:38 PM [facility] No [facility] 06-09-2014 Because of a physica l, mental, or emotional condition, do you have difficulty doing errands alone such as visiting a physician's office or shopping No 06/09/2014 7:38 PM [facility] Mental Status Date Assessment Result Facility 06-09-2014 Because of a physica l, mental, or emotional condition, do you have serious difficulty concentrating, remembering, or making decisions No 06/09/2014 7:38 PM [facility] Clinical Notes 12-23-2019 to 10-28-2024 Florencia Ventura APRN.SYSTEMS TRAINER - 10/28/2024 3:12 PM EDTTelephone Encounter - Alfreda Cervantes RN - 10/28/2024 1:45 PM EDTTelephone Encounter - Alfreda Cervantes RN - 10/28/2024 1:45 PM EDT Note Date & Type Note Facility 10-28-2024 Note HNO ID: [id number] Author: FLORENCIA VENTURA APRN.KIMBERLY Service: ? Author Type: Nurse Practitioner Type: Progress Notes Filed: 10/28/2024 15:29 Note Text: 10/28/2024 Patient presents with: Rash: To left arm x2 weeks Recording using [employer] software for draft documentation of the visit was discussed with the patient/authorized technical service representative; all questions welcomed and answered. Patient/authorized technical service representative agreed to proceed SUBJECTIVE: This is a 84 year old that is here today for Above Complaints.. Rash: - Rash on the left inner arm, onset 2 weeks ago. - Initially localized, has spread about half an inch in all directions. - Described as feeling like a sunburn. - Some areas formed vesicles that drained clear fluid. - No known sensitivity to poison yanique; denies sunburn. - Rash began on a Monday morning, with additional lesions appearing the following day and subsequently. - Denies applying any topical treatments. - Denies fever or chills. - No new medications started; began taking Benadryl a week ago without improvement. - No rash on the face, eyes, or head. - Denies exposure to new plants or substances; has been mowing the lawn every other day. 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 Breana Linder Diastolic dysfunction 2012 Elevated hemoglobin A1c 06/20/2018 Elevated PSA 06/08/2015 Essential hypertension Ex-smoker 12/20/2018 Started around age 17 up to 2 cigs quit around 18. External hemorrhoid 12/20/2018 Medicare annual wellness visit, subsequent 12/02/2016 Medicare part B: 04/21/2007 last done: 12/23/2019 Mixed hyperlipidemia Obesity, Class II, BMI 35-39.9 06/07/2023 Obstructive sleep apnea Rosacea ALLERGIES Seasonal Allergies MEDICATIONS Current Outpatient Medications Medication Sig triamcinolone acetonide (KENALOG) 0.1 % cream Apply to affected area two times a day for 14 days. hydroCHLOROthiazide 12.5 mg capsule Take 1 capsule by mouth once daily. losartan (COZAAR) 50 mg tablet Take 1 tablet by mouth once daily. ezetimibe (ZETIA) 10 mg tablet Take 1 tablet by mouth once daily. isosorbide mononitrate ER (IMDUR) 30 mg 24 hr tablet Take 0.5 tablets by mouth once daily. dilTIAZem CD (CARDIZEM CD) 180 mg 24 hr capsule Take 1 capsule by mouth once daily. atorvastatin (LIPITOR) 80 mg tablet Take 1 tablet by mouth once daily. aspirin, enteric coated (ASPIRIN, ENTERIC COATED) 81 mg EC tablet Take 1 tablet by mouth once daily. omega-3 fatty acids 1,000 mg cap Take 1 capsule by mouth once daily. cetirizine (ZYRTEC) 10 mg tablet Take 1 tablet by mouth once daily. artificial tear, Hypromellose, (GENTEAL MODERATE) 0.3 % Drop Use 1 Drop in both eyes as needed. No current facility-administered medications for this visit. Medications and allergies reviewed by this provider. SOCIAL HISTORY Social History Tobacco Use Smoking status: Former Current packs/day: 0.00 Types: Cigarettes Quit date: 03/21/1962 Years since quittin.6 Smokeless tobacco: Never Tobacco comments: total of a dozen cigarettes Vaping Use Vaping status: Never Used Substance Use Topics Alcohol use: Yes Comment: very rare - glass of wine, several times per year Drug use: No REVIEW OF SYSTEMS OBJECTIVE: BP 96/56 Pulse 71 Resp 18 Wt 100.7 kg (222 lb) SpO2 93% BMI 33.26 kg/m? . Vital signs reviewed by this provider. GENERAL: NAD, alert and oriented SKIN: Erythematous rash to left AC area and left radial wrist. Also has scattered scabbed areas to forearm and upper arm. No current vesicle formation, drainage or excessive warmth to areas DTaP,Tdap,Td Vaccine(1 - Tdap) due on 06/08/2025 RSV Vaccine(1 - 1-dose 75+ series) due on 06/08/2025 Shingrix Vaccine(1 of 2) due on 06/08/2025 Depression Screening due on 12/21/2024 Anxiety Screening due on 12/21/2024 LDL Cholesterol due on 06/08/2025 Diabetes Screening due on 06/08/2027 Influenza Vaccine Completed Advance Directive Discussion Completed Covid-19 Vaccine Completed Pneumococcal Vaccine: 50+ Completed Colorectal Cancer Screening Discontinued 1. Irritant contact dermatitis due to plants, except food (L24.7) - Erythematous rash on the left inner arm, with scattered scabbed areas consistent with possible plant dermatitis, such as poison yanique or poison oak. - Initiated topical cortisone cream, to be applied to affected areas BID for 2 weeks. - Advised patient to monitor for signs of infection, including increased redness, warmth, or spreading of the rash. - If no improvement is noted within one week, patient to return f (more content not included)... [facility] 10-28-2024 History of Presen t illness Narrative 10/28/2024 Patient presents with: Rash: To left arm x2 weeks Recording using [employer] software for draft documentation of the visit was discussed with the patient/authorized technical service representative; all questions welcomed and answered. Patient/authorized technical service representative agreed to proceed SUBJECTIVE: This is a 84 year old that is here today for Above Complaints.. Rash: - Rash on the left inner arm, onset 2 weeks ago. - Initially localized, has spread about half an inch in all directions. - Described as feeling like a sunburn. - Some areas formed vesicles that drained clear fluid. - No known sensitivity to poison yanique; denies sunburn. - Rash began on a Monday morning, with additional lesions appearing the following day and subsequently. - Denies applying any topical treatments. - Denies fever or chills. - No new medications started; began taking Benadryl a week ago without improvement. - No rash on the face, eyes, or head. - Denies exposure to new plants or substances; has been mowing the lawn every other day. 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 Breana Linder Diastolic dysfunction 2012 Elevated hemoglobin A1c 06/20/2018 Elevated PSA 06/08/2015 Essential hypertension Ex-smoker 12/20/2018 Started around age 17 up to 2 cigs quit around 18. External hemorrhoid 12/20/2018 Medicare annual wellness visit, subsequent 12/02/2016 Medicare part B: 04/21/2007 last done: 12/23/2019 Mixed hyperlipidemia Obesity, Class II, BMI 35-39.9 06/07/2023 Obstructive sleep apnea Rosacea ALLERGIES Seasonal Allergies MEDICATIONS Current Outpatient Medications Medication Sig triamcinolone acetonide (KENALOG) 0.1 % cream Apply to affected area two times a day for 14 days. hydroCHLOROthiazide 12.5 mg capsule Take 1 capsule by mouth once daily. losartan (COZAAR) 50 mg tablet Take 1 tablet by mouth once daily. ezetimibe (ZETIA) 10 mg tablet Take 1 tablet by mouth once daily. isosorbide mononitrate ER (IMDUR) 30 mg 24 hr tablet Take 0.5 tablets by mouth once daily. dilTIAZem CD (CARDIZEM CD) 180 mg 24 hr capsule Take 1 capsule by mouth once daily. atorvastatin (LIPITOR) 80 mg tablet Take 1 tablet by mouth once daily. aspirin, enteric coated (ASPIRIN, ENTERIC COATED) 81 mg EC tablet Take 1 tablet by mouth once daily. omega-3 fatty acids 1,000 mg cap Take 1 capsule by mouth once daily. cetirizine (ZYRTEC) 10 mg tablet Take 1 tablet by mouth once daily. artificial tear, Hypromellose, (GENTEAL MODERATE) 0.3 % Drop Use 1 Drop in both eyes as needed. No current facility-administered medications for this visit. Medications and allergies reviewed by this provider. SOCIAL HISTORY Social History Tobacco Use Smoking status: Former Current packs/day: 0.00 Types: Cigarettes Quit date: 03/21/1962 Years since quittin.6 Smokeless tobacco: Never Tobacco comments: total of a dozen cigarettes Vaping Use Vaping status: Never Used Substance Use Topics Alcohol use: Yes Comment: very rare - glass of wine, several times per year Drug use: No REVIEW OF SYSTEMS OBJECTIVE: BP 96/56 Pulse 71 Resp 18 Wt 100.7 kg (222 lb) SpO2 93% BMI 33.26 kg/m . Vital signs reviewed by this provider. GENERAL: NAD, alert and oriented SKIN: Erythematous rash to left AC area and left radial wrist. Also has scattered scabbed areas to forearm and upper arm. No current vesicle formation, drainage or excessive warmth to areas DTaP,Tdap,Td Vaccine(1 - Tdap) due on 06/08/2025 RSV Vaccine(1 - 1-dose 75+ series) due on 06/08/2025 Shingrix Vaccine(1 of 2) due on 06/08/2025 Depression Screening due on 12/21/2024 Anxiety Screening due on 12/21/2024 LDL Cholesterol due on 06/08/2025 Diabetes Screening due on 06/08/2027 Influenza Vaccine Completed Advance Directive Discussion Completed Covid-19 Vaccine Completed Pneumococcal Vaccine: 50+ Completed Colorectal Cancer Screening Discontinued 1. Irritant contact dermatitis due to plants, except food (L24.7) - Erythematous rash on the left inner arm, with scattered scabbed areas consistent with possible plant dermatitis, such as poison yanique or poison oak. - Initiated topical cortisone cream, to be applied to affected areas BID for 2 weeks. - Advised patient to monitor for signs of infection, including increased redness, warmth, or spreading of the rash. - If no improvement is noted within one week, patient to return for re-evaluation and potential initiation of systemic corticosteroids. - Prescription for cortisone cream sent to [place] pharmacy. - Educated patient on the importance of wearing long sleeves and washing exposed skin after outdoor activities to prevent further exposure. Florencia Podlogar, DIRECTOR GEOTHERMAL OPERATIONS.SYSTEMS TRAINER Prescription instructions reviewed with patient as applicable. Patient advised if symptoms do not improve or if symptoms worsen sooner, to contact their primary care physician. Potential red flag symptoms discussed with the patient. Reviewed appropriate action plan to take if red flag symptoms occur. Patient agreeable to treatment plan. Medical Decision Making: Problems: Low: Acute, uncomplicated illness or injury Risk: Moderate: Drug management Medical Decision Making Level: 3 - Low documented in this encounter [facility] 10-28-2024 Telephone encount er Note Pt called in and reports he has had a rash on his L elbow x2 weeks. Pt reports he has been taking Benadryl for it. He states he has 3 main patches one on elbow about 2 in x 3 in, forearm 3 in x 1 1/2 in, and by wrist 1 in x 1 in. He states they are red blotches and there are red bumps that are broken open sores that briefly seeped serous fluid. Pt states the arm is mildly warm and itchy. He states he has been mowing the yard every other day, but it started before that. Pt denies starting any new medications or foods recently. Pt scheduled with Florencia Ventura NP today at 3 pm. Alfreda Cervantes RN [facility] 10-28-2024 Miscellaneous Notes Formattin g of this note might be different from the original. Pt called in and reports he has had a rash on his L elbow x2 weeks. Pt reports he has been taking Benadryl for it. He states he has 3 main patches one on elbow about 2 in x 3 in, forearm 3 in x 1 1/2 in, and by wrist 1 in x 1 in. He states they are red blotches and there are red bumps that are broken open sores that briefly seeped serous fluid. Pt states the arm is mildly warm and itchy. He states he has been mowing the yard every other day, but it started before that. Pt denies starting any new medications or foods recently. Pt scheduled with Florencia Ventura NP today at 3 pm. Alfreda Cervantes RN documented in this encounter [facility] 08-02-2024 Telephone encount er Note Noted. [facility] 08-02-2024 Miscellaneous Notes Formattin g of this note might be different from the original. Noted. Patient calls back and states that BP has been running 130/70. Tammi Parmar RN Called and left a detailed voicemail notifying patient of providers message. Clinic phone number was left for the patient to call and answer providers question. Alfreda Cervantes RN Please check with patient on what his BP has been running. documented in this encounter [facility] 08-02-2024 Telephone encount er Note Patient calls back and states that BP has been running 130/70. Tammi Parmar RN [facility] 08-02-2024 Telephone encount er Note Called and left a detailed voicemail notifying patient of providers message. Clinic phone number was left for the patient to call and answer providers question. Alfreda Cervantes RN [facility] 08-02-2024 Telephone encount er Note Please check with patient on what his BP has been running. [facility] 07-23-2024 Telephone encount er Note Prescription Refill Information The patient has been identified by name and date of : Yes Caregiver verified no other encounters exist for this prescription request: Yes Caregiver confirmed with patient/requestor that no other refills are due, in the near future, with this provider at this time: Yes The last office visit in the department: 07/05/24 Does the patient have a future office visit with this provider/department: Yes 12/06/24 Requested Prescriptions Pending Prescriptions Disp Refills hydroCHLOROthiazide 12.5 mg capsule 90 capsule 3 Sig: Take 1 capsule by mouth once daily. Chica Brooks LPN July 23, 2024 2:05 PM [facility] 07-23-2024 Miscellaneous Notes Formattin g of this note is different from the original. Prescription Refill Information The patient has been identified by name and date of : Yes Caregiver verified no other encounters exist for this prescription request: Yes Caregiver confirmed with patient/requestor that no other refills are due, in the near future, with this provider at this time: Yes The last office visit in the department: 07/05/24 Does the patient have a future office visit with this provider/department: Yes 12/06/24 Requested Prescriptions Pending Prescriptions Disp Refills hydroCHLOROthiazide 12.5 mg capsule 90 capsule 3 Sig: Take 1 capsule by mouth once daily. Chica Brooks LPN July 23, 2024 2:05 PM documented in this encounter [facility] 07-05-2024 Instructions Angy Luciano PA-C - 07/05/2024 8:17 AM EST Please decrease losartan to 50mg a day. Please monitor home BP readings. We will call in about 4 weeks for updated readings. documented in this encounter [facility] 07-05-2024 Note HNO ID: [id number] Author: ANGY LUCIANO PA-C Service: ? 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 At last visit patient's diltiazem was decreased to 180mg a day due to low bp readings. Patient does not check his bp at home. Last 6 Encounter BP Readings: Date: BP: 07/05/2024 96/53 06/08/2024 98/58 01/30/2024 118/66 12/22/2023 108/62 08/30/2023 124/58 06/23/2023 124/68 Past medical history, appointments, medications, allergies reviewed. Previous Medical History PAST MEDICAL HISTORY Diagnosis Date Advance directive discussed with patient 05/27/2022 Discussed 05/2022: Packets given Anemia of chronic disease 10/16/2021 Benign non-nodular prostatic hyperplasia without lower urinary tract symptoms 05/27/2015 Chronic diastolic CHF (congestive heart failure) (HCC) Chronic rhinitis 08/27/2012 Coronary artery disease due to lipid rich plaque 05/27/2015 left Cx, sees Dr. Breana Linder Diastolic dysfunction 2012 Elevated hemoglobin A1c 06/20/2018 Elevated PSA 06/08/2015 Essential hypertension Ex-smoker 12/20/2018 Started around age 17 up to 2 cigs quit around 18. External hemorrhoid 12/20/2018 Medicare annual wellness visit, subsequent 12/02/2016 Medicare part B: 04/21/2007 last done: 12/23/2019 Mixed hyperlipidemia Obesity, Class II, BMI 35-39.9 06/07/2023 Obstructive sleep apnea Rosacea Previous Surgical History PAST SURGICAL HISTORY Procedure Laterality Date COLONOSCOPY 1997 neg COLSC FLX W/REMOVAL LESION BY HOT BX FORCEPS 08/14/15 hyperplastic polyp - 10 year follow up PAST SURGICAL HISTORY OF Right 2016 ring finger Rt Fx repair Family History FAMILY HISTORY Problem Relation Age of Onset Stroke Mother 92 other (hypotension) Mother Ischemic Heart Disease Father 59 [place] Cancer Father skin cancer Ischemic Heart Disease Paternal Grandfather Ischemic Heart Disease Paternal Uncle 3 uncles Colon Cancer No Family History Prostate Cancer No Family History Alzheimer's Disease No Family History Patient Allergies ALLERGIES Allergen Reactions Seasonal Allergies Intolerance Testing 06/18/12 negative. Patient still bothered by allergens. grass, pollen, ragweed Current Medications Current Outpatient Medications on File Prior to Visit Medication Sig ezetimibe (ZETIA) 10 mg tablet Take 1 tablet by mouth once daily. isosorbide mononitrate ER (IMDUR) 30 mg 24 hr tablet Take 0.5 tablets by mouth once daily. losartan (COZAAR) 100 mg tablet Take 1 tablet by mouth once daily. dilTIAZem CD (CARDIZEM CD) 180 mg 24 hr capsule Take 1 capsule by mouth once daily. atorvastatin (LIPITOR) 80 mg tablet Take 1 tablet by mouth once daily. hydroCHLOROthiazide 12.5 mg capsule Take 1 capsule by mouth once daily. aspirin, enteric coated (ASPIRIN, ENTERIC COATED) 81 mg EC tablet Take 1 tablet by mouth once daily. omega-3 fatty acids 1,000 mg cap Take 1 capsule by mouth once daily. cetirizine (ZYRTEC) 10 mg tablet Take 1 tablet by mouth once daily. artificial tear, Hypromellose, (GENTEAL MODERATE) 0.3 % Drop Use 1 Drop in both eyes as needed. No current facility-administered medications on file prior to visit. Social History Social History Tobacco Use Smoking status: Former Current packs/day: 0.00 Types: Cigarettes Quit date: 03/21/1962 Years since quittin.3 Smokeless tobacco: Never Tobacco comments: total of a dozen cigarettes Vaping Use Vaping status: Never Used Substance Use Topics Alcohol use: Yes Comment: very rare - glass of wine, several times per year Drug use: No Review of Symptoms REVIEW OF SYSTEMS GENERAL: No weight loss, malaise or fevers RESPIRATORY: Negative for cough, hemoptysis, wheezing, COPD, dyspnea or shortness of breath CARDIOVASCULAR: Negative for chest pain, leg swelling, hypertension, CHF or palpitations EXAM: BP 96/53 (BP Site: Left Arm, BP Position: Sitting, BP Cuff Size: Regular Adult) Pulse 71 Temp 36.4 ?C (97.5 ?F) Resp 18 Wt 101.6 kg (224 lb) SpO2 98% BMI 33.56 kg/m? General Appearance: Well appearing, alert, in no acute distress, well-hydrated, well nourished.. Health Maintenance List DTaP,Tdap,Td Vaccine(1 - Tdap) due on 06/08/2025 RSV Vaccine(1 - 1-dose 75+ series) due on 06/08/2025 Shingrix Vaccine(1 of 2) due on 06/08/2025 Depression Screening due on 12/21/2024 Anxiety Screening due on 12/21/2024 LDL Cholesterol due on 06/08/2025 Diabetes Screening due on 06/08/2027 Influenza Vaccine Completed Advance Directive Discussion Completed Covid-19 Vaccine Completed Pneumococcal Vaccine: 50+ Completed Colorectal Cancer Screening Discontinued Data reviewed ASSESSMENT/PLAN: 1. Hypertension, essential - ICD9: 401.9, ICD10: I10 Bp still low on office (more content not included)... [facility] 07-05-2024 History of Presen t illness Narrative Chief Complaint Patient presents with: Follow Up: Blood pressure HPI Yvonne Jones is a 84 year old male who presents here today for Above Complaints.. At last visit patient's diltiazem was decreased to 180mg a day due to low bp readings. Patient does not check his bp at home. Last 6 Encounter BP Readings: Date: BP: 07/05/2024 96/53 06/08/2024 98/58 01/30/2024 118/66 12/22/2023 108/62 08/30/2023 124/58 06/23/2023 124/68 Past medical history, appointments, medications, allergies reviewed. Previous Medical History PAST MEDICAL HISTORY Diagnosis Date Advance directive discussed with patient 05/27/2022 Discussed 05/2022: Packets given Anemia of chronic disease 10/16/2021 Benign non-nodular prostatic hyperplasia without lower urinary tract symptoms 05/27/2015 Chronic diastolic CHF (congestive heart failure) (HCC) Chronic rhinitis 08/27/2012 Coronary artery disease due to lipid rich plaque 05/27/2015 left Cx, sees Dr. Breana Linder Diastolic dysfunction 2013 Elevated hemoglobin A1c 06/20/2018 Elevated PSA 06/08/2015 Essential hypertension Ex-smoker 12/20/2018 Started around age 17 up to 2 cigs quit around 18. External hemorrhoid 12/20/2018 Medicare annual wellness visit, subsequent 12/02/2016 Medicare part B: 04/21/2007 last done: 12/23/2019 Mixed hyperlipidemia Obesity, Class II, BMI 35-39.9 06/07/2023 Obstructive sleep apnea Rosacea Previous Surgical History PAST SURGICAL HISTORY Procedure Laterality Date COLONOSCOPY 1997 neg COLSC FLX W/REMOVAL LESION BY HOT BX FORCEPS 08/14/15 hyperplastic polyp - 10 year follow up PAST SURGICAL HISTORY OF Right 2016 ring finger Rt Fx repair Family History FAMILY HISTORY Problem Relation Age of Onset Stroke Mother 92 other (hypotension) Mother Ischemic Heart Disease Father 59 [place] Cancer Father skin cancer Ischemic Heart Disease Paternal Grandfather Ischemic Heart Disease Paternal Uncle 3 uncles Colon Cancer No Family History Prostate Cancer No Family History Alzheimer's Disease No Family History Patient Allergies ALLERGIES Allergen Reactions Seasonal Allergies Intolerance Testing 06/18/12 negative. Patient still bothered by allergens. grass, pollen, ragweed Current Medications Current Outpatient Medications on File Prior to Visit Medication Sig ezetimibe (ZETIA) 10 mg tablet Take 1 tablet by mouth once daily. isosorbide mononitrate ER (IMDUR) 30 mg 24 hr tablet Take 0.5 tablets by mouth once daily. losartan (COZAAR) 100 mg tablet Take 1 tablet by mouth once daily. dilTIAZem CD (CARDIZEM CD) 180 mg 24 hr capsule Take 1 capsule by mouth once daily. atorvastatin (LIPITOR) 80 mg tablet Take 1 tablet by mouth once daily. hydroCHLOROthiazide 12.5 mg capsule Take 1 capsule by mouth once daily. aspirin, enteric coated (ASPIRIN, ENTERIC COATED) 81 mg EC tablet Take 1 tablet by mouth once daily. omega-3 fatty acids 1,000 mg cap Take 1 capsule by mouth once daily. cetirizine (ZYRTEC) 10 mg tablet Take 1 tablet by mouth once daily. artificial tear, Hypromellose, (GENTEAL MODERATE) 0.3 % Drop Use 1 Drop in both eyes as needed. No current facility-administered medications on file prior to visit. Social History Social History Tobacco Use Smoking status: Former Current packs/day: 0.00 Types: Cigarettes Quit date: 03/21/1962 Years since quittin.3 Smokeless tobacco: Never Tobacco comments: total of a dozen cigarettes Vaping Use Vaping status: Never Used Substance Use Topics Alcohol use: Yes Comment: very rare - glass of wine, several times per year Drug use: No Review of Symptoms REVIEW OF SYSTEMS GENERAL: No weight loss, malaise or fevers RESPIRATORY: Negative for cough, hemoptysis, wheezing, COPD, dyspnea or shortness of breath CARDIOVASCULAR: Negative for chest pain, leg swelling, hypertension, CHF or palpitations EXAM: BP 96/53 (BP Site: Left Arm, BP Position: Sitting, BP Cuff Size: Regular Adult) Pulse 71 Temp 36.4 C (97.5 F) Resp 18 Wt 101.6 kg (224 lb) SpO2 98% BMI 33.56 kg/m General Appearance: Well appearing, alert, in no acute distress, well-hydrated, well nourished.. Health Maintenance List DTaP,Tdap,Td Vaccine(1 - Tdap) due on 06/08/2025 RSV Vaccine(1 - 1-dose 75+ series) due on 06/08/2025 Shingrix Vaccine(1 of 2) due on 06/08/2025 Depression Screening due on 12/21/2024 Anxiety Screening due on 12/21/2024 LDL Cholesterol due on 06/08/2025 Diabetes Screening due on 06/08/2027 Influenza Vaccine Completed Advance Directive Discussion Completed Covid-19 Vaccine Completed Pneumococcal Vaccine: 50+ Completed Colorectal Cancer Screening Discontinued Data reviewed ASSESSMENT/PLAN: 1. Hypertension, essential - ICD9: 401.9, ICD10: I10 Bp still low on office readings. Will decrease losartan to 50mg daily. Patient is going to [place] for 2 months. Will monitor BP at home and update us in 1 month by phone. - Recommend home blood pressure monitoring, to bring results to next visit - Encouraged sodium restriction, DASH or Mediterranean diet - Recommend regular aerobic exercise Angy Luciano PA-C documented in this encounter [facility] 06-12-2024 Telephone encount er Note Patient notified of results and provider's instructions. Patient verbalizes understanding. Franck Reyes LPN [facility] 06-12-2024 Miscellaneous Notes Formattin g of this note might be different from the original. Patient notified of results and provider's instructions. Patient verbalizes understanding. Franck Reyes LPN Let patient know his A1c for diabetes screening is improved at 5.9%. goal is to see less than 5.6%. cont to work on reduced sugars and sweats in diet. His electrolyte panel was ok except his kidnies continue to show stage 3 chronic kidney disease but better then 5 months ago. Advise him to make sure he avoids taking Ibuprofen, Motrin, Advil, Naproxen and Aleve since these can make kidney functions worse. Lipid panel, prostate lab and UA were ok. documented in this encounter [facility] 06-12-2024 Evaluation note Diagnosis Stage 3a chronic kidney disease (HCC)- Primary documented in this encounter [facility]01-21-2025 Telephone encounter Note* Telephone Encounter - Leoncio Chavez MD - 06/11/2024 7:32 PM EST Let patient know his A1c for diabetes screening is improved at 5.9%. goal is to see less than 5.6%.cont to work on reduced sugars and sweats in diet. His electrolyte panel was ok except his kidnies continue to show stage 3 chronic kidney disease butbetter then 5 months ago. Advise him to make sure he avoids taking Ibuprofen, Motrin, Advil, Naproxen and Aleve since these can make kidney functions worse. Lipid panel, prostate lab and UA were ok. [facility]01-18-2025 Instructions* Patient Instructions* Leoncio Chavez MD - 06/08/2024 10:26 AM EST Consider getting the shingrix vaccine for the prevention of shingles from a local pharmacy along with the RSV vaccine and a Tdap to update your tetanus. Please get labs done on or after 11/22/2024 prior to your next visit. Screening schedule The following prevention plan is recommended: DTaP,Tdap,Td Vaccine(1 - Tdap) Never done Shingrix Vaccine(1 of 2) Never done RSV Vaccine(1 - 1-dose 75+ series) Never done Advance Directive Discussion due on 05/22/2024 WHAT YOU CAN DO TO PREVENT FALLS Many falls can be prevented. By making some changes, you can lower your chances of falling. Four things YOU can do to prevent falls for you* and your caregiver 1. Begin a regular exercise program Exercise is one of the most important ways to lower your chances of falling. It makes you stronger and helps you feel better. Exercises that improve balance and coordination (like Ozzie Chi) are the most helpful. Lack of exercise leads to weakness and increases your chances of falling. Ask your doctor or health care provider about the best type of exercise program for you. 2. Have your health care provider review your medicines Have your doctor or pharmacist review all the medicines you take, even [id number] medicines. As you get older, the way medicines work in your body can change. Some medicines, or combinations of medicines, can make you sleepy or dizzy andcan cause you to fall. 3. Have your vision checked Have your eyes checked by an eye doctor at least once a year. You may be wearing the wrong glasses or have a condition like glaucoma or cataracts that limits your vision. Poor vision can increase your chances of falling. 4. Make your home safer About half of all falls happen at home. To make your home safer: Remove things you can trip over (like papers, books, clothes, and shoes) from stairs and places where you walk. Remove small throw rugs or use double-sided tape to keep the rugs from slipping. Keep items you use often in cabinets you can reach easily without using a step stool. Have grab bars put in next to your toilet and in the tub or shower. Use non-slip mats in the bathtub and on shower floors. Improve the lighting in your home. As you get older, you need brighter lights to see well. Hang light-weight curtains or shades to reduce glare. Have handrails and lights put in on all staircases. Wear shoes both inside and outside the house. Avoid going barefoot or wearing slippers. For more information, contact: Centers for Disease Control and Prevention www.cdc.gov/injury * This information may not apply if you have certain medical conditions. [facility] History of Present illness Narrative* Leoncio Chavez MD - 06/08/2024 10:00 AM EST Images from the original note were not included. Yvonne Jones is a 84 year old male here for a Medicare wellness visit. Medicare Health Risk Assessment General Health Good Exercise: Minutes/Day 0 min Exercise: Days/Week 0 days Alcohol: Daily Use Monthly or less Alcohol: Drinks/Day 1 or 2 Alcohol: 6 or more drinks Never Feel off balance No Concerns: Teeth/Dentures No Concerns: Sexual function No Troubled by feelings None of the above Frequency: Eating healthy diet Nearly every day ADLs requiring help None of the above Safety precautions in home/vehicle No Smoke, vape, chews tobacco No Difficulty hearing No Difficulty seeing No Current Providers Specialists: I have reviewed specialist-related care of the patient in the medical record. Current care team: Patient Care Team: Leoncio Chavez MD as PCP - General (Family Medicine) Kedar De Leon APRN.CNP as Voting Machine Repairer (Family Medicine) Angy Luciano PA-C as Voting Machine Repairer (Family Medicine) Dr. Tobar: cardio Medical/Family history review Reviewed and updated problem list, medical/surgical/family/social history, medications, and allergies. Opioid use review Opioid Medications (last 90 days) No data to display Anxiety/Depression screening PHQ-2 Score: 0 (Lower risk for depression) Recommendation: no further intervention at this time Cognitive screening Score: 4 Cognitive screening reviewed and No further action needed (score 3-5). Functional Observation Was the patient's Timed Up & Go test unsteady or >= 12 seconds? No Advance Care Planning Patient did not wish or was not able to name a surrogate decision maker or provide an advance care plan Measurements BP 98/58 Pulse 72 Resp 16 Ht 174 cm (5' 8.5) Wt 99.8 kg (220 lb) BMI 32.96 kg/m Vision Screening: Follows with optometry/ophthalmology Assessment/Plan Medicare annual wellness visit, subsequent (Z00.00) - Counseled on healthy diet and regular exercise - Fall avoidance information provided - Personalized prevention plan provided See Below Chief Complaint Patient presents with: Medicare Wellness Exam HPI Yvonne Jones is a 84 year old male who presents here today for Chronic Medical Conditions. and Medicare Annual Visit. Patient with hx of HTN, hyperlipidemia, CHF, CAD, elevated glucose, anemia, elevated PSA and those as below. Component Ref Range & Units 5 mo ago (12/22/23) 1 yr ago (06/07/23) 1 yr ago (11/25/22) 2 yr ago (05/27/22) 2 yr ago (10/15/21) 3 yr ago (03/20/21) 3 yr ago (06/26/20) Hemoglobin A1C 4.3 - 5.6 % 6.0 High 5.7 High CM 5.8 High CM 5.7 High CM 5.9 High CM 5.9 High CM 5.9 High Past medical history, appointments, medications, allergies reviewed. Previous Medical History PAST MEDICAL HISTORY Diagnosis Date Advance directive discussed with patient 05/27/2022 Discussed 05/2022: Packets given Anemia of chronic disease 10/16/2021 Benign non-nodular prostatic hyperplasia without lower urinary tract symptoms 05/27/2015 Chronic diastolic CHF (congestive heart failure) (HCC) Chronic rhinitis 08/27/2012 Coronary artery disease due to lipid rich plaque 05/27/2015 left Cx, sees Dr. Breana Linder Diastolic dysfunction 2012 Elevated hemoglobin A1c 06/20/2018 Elevated PSA 06/08/2015 Essential hypertension Ex-smoker 12/20/2018 Started around age 17 up to 2 cigs quit around 18. External hemorrhoid 12/20/2018 Medicare annual wellness visit, subsequent 12/02/2016 Medicare part B: 04/21/2007 last done: 12/23/2019 Mixed hyperlipidemia Obesity, Class II, BMI 35-39.9 06/07/2023 Obstructive sleep apnea Rosacea Previous Surgical History PAST SURGICAL HISTORY Procedure Laterality Date COLONOSCOPY 1997 neg COLSC FLX W/REMOVAL LESION BY HOT BX FORCEPS 08/14/15 hyperplastic polyp - 10 year follow up PAST SURGICAL HISTORY OF Right 2016 ring finger Rt Fx repair Family History FAMILY HISTORY Problem Relation Age of Onset Stroke Mother 92 other (hypotension) Mother Ischemic Heart Disease Father 59 [place] Cancer Father skin cancer Ischemic Heart Disease Paternal Grandfather Ischemic Heart Disease Paternal Uncle 3 uncles Colon Cancer No Family History Prostate Cancer No Family History Alzheimer's Disease No Family History Patient Allergies ALLERGIES Allergen Reactions Seasonal Allergies Intolerance Testing 06/18/12 negative. Patient still bothered by allergens. grass, pollen, ragweed Current Medications Current Outpatient Medications on File Prior to Visit Medication Sig isosorbide mononitrate ER (IMDUR) 30 mg 24 hr tablet Take 0.5 tablets by mouth once daily. ezetimibe (ZETIA) 10 mg tablet Take 1 tablet by mouth once daily. dilTIAZem CD (CARDIZEM CD) 240 mg 24 hr capsule Take 1 capsule by mouth once daily. atorvastatin (LIPITOR) 80 mg tablet Take 1 tablet by mouth once daily. hydroCHLOROthiazide 12.5 mg capsule Take 1 capsule by mouth once daily. losartan (COZAAR) 100 mg tablet Take 1 tablet by mouth once daily. aspirin, enteric coated (ASPIRIN, ENTERIC COATED) 81 mg EC tablet Take 1 tablet by mouth once daily. omega-3 fatty acids 1,000 mg cap Take 1 capsule by mouth once daily. cetirizine (ZYRTEC) 10 mg tablet Take 1 tablet by mouth once daily. ibuprofen (MOTRIN) 200 mg tablet Take 1-2 tablets by mouth every 6 hours as needed for Pain (Take with food.). artificial tear, Hypromellose, (GENTEAL MODERATE) 0.3 % Drop Use 1 Drop in both eyes as needed. No current facility-administered medications on file prior to visit. Social History Social History Tobacco Use Smoking status: Former Current packs/day: 0.00 Types: Cigarettes Quit date: 03/21/1962 Years since quittin.2 Smokeless tobacco: Never Tobacco comments: total of a dozen cigarettes Vaping Use Vaping status: Never Used Substance Use Topics Alcohol use: Yes Comment: very rare - glass of wine, several times per year Drug use: No Review of Symptoms REVIEW OF SYSTEMS GENERAL: No unintentional weight loss, malaise or fevers HEENT: Negative for frequent or significant headaches, No changes in hearing or vision, no nose bleeds or other nasal problems NECK: Negative for lumps, goiter, pain and significant neck swelling RESPIRATORY: Negative for cough, hemoptysis, wheezing, COPD, dyspnea or shortness of breath. No orthopnea. CARDIOVASCULAR: Negative for chest pain, increased leg swelling, hypertension, CHF or palpitations GI: No nausea, vomiting, or diarrhea, No heartburn or reflux symptoms, and no blood : No history of dysuria, frequency or blood. MUSCULOSKELETAL: Negative for joint pain or swelling, back pain or muscle pain. Has been having pain due to ingrown toe nail on the left second digit. SKIN: Negative for lesions, rash, and itching PSYCH: Negative for sleep disturbance, mood disorder and recent psychosocial stressors HEMATOLOGY/LYMPHOLOGY: Negative for prolonged bleeding, bruising easily or swollen nodes ENDOCRINE: Negative for cold or heat intolerance, polyuria, polydipsia and goiter NEURO: No history of headaches, syncope, paralysis, seizures or tremors EXAM: BP 98/58 Pulse 72 Resp 16 Ht 174 cm (5' 8.5) Wt 99.8 kg (220 lb) BMI 32.96 kg/m Last 6 Encounter Wt Readings: Date: Wt: 06/08/2024 99.8 kg (220 lb) 01/30/2024 104.4 kg (230 lb 2.6 oz) 12/22/2023 104.3 kg (230 lb) 08/30/2023 108 kg (238 lb 1.6 oz) 06/23/2023 108.8 kg (239 lb 13.8 oz) 06/09/2023 108.9 kg (240 lb) General Appearance: Well appearing, alert, in no acute distress, well-hydrated, well nourished.. Skin: Skin color, texture, turgor normal, no suspicious rashes or lesions. Head: Normocephalic, no masses, lesions, tenderness or abnormalities. Eyes: Anicteric sclera. Pupils are equally round and reactive to light. Extraocular movements are intact. . Ears: External ears, TM's normal, canals clear. Nose/Sinuses: Nares normal, septum midline, mucosa normal, no drainage or sinus tenderness. Oropharynx: Lips, mucosa, and tongue normal, teeth and gums normal, oropharynx normal. Neck: Supple, no adenopathy; thyroid symmetric, normal size, no bruits. Lungs: Lungs clear to auscultation. No wheezing, rhonchi, rales.. Heart: RRR without murmur, gallop, or rubs. No ectopy. Abdomen: Normal abdominal exam, Abdomen soft, non-tender. Bowel sounds normal. No masses, organomegaly. Extremities: No deformities, edema, skin discoloration, clubbing or cyanosis. Good capillary refill. Lateral edge of left 2nd toe nail is ingrown. No infection.. Musculoskeletal: Spine range of motion normal. Muscular strength intact, No joint swelling, deformity, or tenderness. Peripheral Pulses: Normal. Neurologic: Gait normal. Reflexes normal and symmetric. Sensation to light touch and crainal nerves2-12 intact.. Genitalia: Normal, Penis normal. No urethral discharge. Scrotum normal to palpation. No hernia.. Health Maintenance List DTaP,Tdap,Td Vaccine(1 - Tdap) Never done Shingrix Vaccine(1 of 2) Never done RSV Vaccine(1 - 1-dose 75+ series) Never done Influenza Vaccine(1) due on 01/21/2024 Covid-19 Vaccine() due on 01/21/2024 Advance Directive Discussion due on 05/22/2024 LDL Cholesterol due on 12/21/2024 Depression Screening due on 12/21/2024 Anxiety Screening due on 12/21/2024 Diabetes Screening due on 12/21/2026 Pneumococcal Vaccine: 50+ Completed Colorectal Cancer Screening Discontinued Data reviewed Latest Ref Rng 12/22/2023 Glucose 74 - 99 mg/dL 112 (H) BUN 9 - 24 mg/dL 32 (H) Creatinine 0.73 - 1.22 mg/dL 1.89 (H) Sodium 136 - 144 mmol/L 139 Potassium 3.7 - 5.1 mmol/L 3.8 Chloride 98 - 107 mmol/L 102 CO2 22 - 30 mmol/L 24 Anion Gap 8 - 15 mmol/L 13 Calcium 8.5 - 10.2 mg/dL 9.4 eGFR >=60 mL/min/1.73m 35 (L) Total Cholesterol, Nonfasting <200 mg/dL 100 Triglycerides, Nonfasting <150 mg/dL 95 HDL Cholesterol, Nonfasting >39 mg/dL 27 (L) LDL Cholesterol, Nonfasting <100 mg/dL 54 Non HDL Cholesterol, Nonfasting <130 mg/dL 73 VLDL Cholesterol, Nonfasting <30 mg/dL 19 Total Chol/HDL Ratio, Nonfasting <5.10 mg/dL 3.70 LDL/HDL Ratio, Nonfasting <2.54 mg/dL 2.00 Hemoglobin A1C 4.3 - 5.6 % 6.0 (H) Estimated Average Glucose mg/dL 126 PSA <2.60 ng/mL 4.01 (H) PSA, Percent Free % 41 Orthostatics: Layin/69 pulse of 68 Standin/47 pulse of 64 A/P ASSESSMENT/PLAN: 1. Medicare annual wellness visit, subsequent - ICD9: V70.0, ICD10: Z00.00 (primary diagnosis) - Counseled on healthy diet and regular exercise - Discussed need for and benefit of weight loss. BMI 32.96 kg/(m^2) - Patient counseled on and acknowledged vaccine benefits/risks/side effects; VIS provided: COVID-19and Influenza - Follow up for annual exam in one year - advised on shingrix, RSV and Tdap vaccines. 2. Mixed hyperlipidemia - ICD9: 272.2, ICD10: E78.2 - Control undetermined, due for labs - Continue current medications - Counseled on healthy diet and regular exercise - Discussed need for and benefit of weight loss. BMI 32.96 kg/(m^2) - EZETIMIBE 10 MG TABLET 3. Essential hypertension - ICD9: 401.9, ICD10: I10 - Controlled, but running low. - Continue current medications - Decrease diltiazem to 180 mg a day. - f/u in 4 weeks for HTN check if still less then 110 SBP or 70 DBP would then cut back on his losartan to 50 mg. - Recommend home blood pressure monitoring, to bring results to next visit - Encouraged sodium restriction, DASH or Mediterranean diet - Recommend regular aerobic exercise - ISOSORBIDE MONONITRATE ER 30 MG TABLET,EXTENDED RELEASE 24 HR 4. Elevated hemoglobin A1c - ICD9: 790.29, ICD10: R73.09 - await labs. 5. Coronary artery disease due to lipid rich plaque - ICD9: 414.00, 414.3, ICD10: I25.10, I25.83 - clinically stable and follows with cardio 6. Chronic diastolic CHF (congestive heart failure) (HCC) - ICD9: 428.32, 428.0, ICD10: I50.32 - as per #5 7. Anemia of chronic disease - ICD9: 285.29, ICD10: D63.8 - awaiting labs. 8. Obesity, Class II, BMI 35-39.9 - ICD9: 278.00, ICD10: E66.812 - patient to continue work on further weight loss. 9. Obstructive sleep apnea - ICD9: 327.23, ICD10: G47.33 - was not able to tolerate Tx. 10. Benign non-nodular prostatic hyperplasia without lower urinary tract symptoms - ICD9: 600.90, ICD10: N40.0 - clinically stable 11. Ingrown nail of second toe of left foot - ICD9: 703.0, ICD10: L60.0 - discussed trying to treat at home and if not resolving we could do a latter nail resection with matrixectomy. 12. Advance directive discussed with patient - ICD9: V65.49, ICD10: Z71.89 - patient has packets. 13. Encounter for immunization - ICD9: V03.89, ICD10: Z23 - INFLUENZA VACCINE, PRSV FREE, AGE 65+ YR, HIGH DOSE, TRIVALENT (FLUZONE HIGH- DOSE): given - [facility] COVID-19 VACCINE AGE 12+ YR (COMIRNATY): given 14. Elevated PSA - ICD9: 790.93, ICD10: R97.20 - awaiting lab result. Requested Prescriptions Signed Prescriptions Disp Refills ezetimibe (ZETIA) 10 mg tablet 90 tablet 1 Sig: Take 1 tablet by mouth once daily. isosorbide mononitrate ER (IMDUR) 30 mg 24 hr tablet 45 tablet 3 Sig: Take 0.5 tablets by mouth once daily. losartan (COZAAR) 100 mg tablet 90 tablet 3 Sig: Take 1 tablet by mouth once daily. dilTIAZem CD (CARDIZEM CD) 180 mg 24 hr capsule 90 capsule 1 Sig: Take 1 capsule by mouth once daily. atorvastatin (LIPITOR) 80 mg tablet 90 tablet 3 Sig: Take 1 tablet by mouth once daily. F/u 1 month HTN check F/u in 6 months routine check Lipids, A1c, BMP and Free PSA prior. I spent a total of 40 minutes on the date of the service which included preparing to see the patient, [id number] patient care, completing clinical documentation, performing a medically appropriate examination, counseling and educating the patient/family/caregiver and ordering medications, tests, or procedures. Leoncio Chavez MD documented in this encounterReg[facility]25 NoteHNO ID: [id number] Author: LEONCIO CHAVEZ MD Service: ? Author Type: Physician Type: Progress Notes Filed: 06/08/2024 12:58 Note Text: Yvonne Jones is a 84 year old male here for a Medicare wellness visit. Medicare Health Risk Assessment General Health Good Exercise: Minutes/Day 0 min Exercise: Days/Week 0 days Alcohol: Daily Use Monthly or less Alcohol: Drinks/Day 1 or 2 Alcohol: 6 or more drinks Never Feel off balance No Concerns: Teeth/Dentures No Concerns: Sexual function No Troubled by feelings None of the above Frequency: Eating healthy diet Nearly every day ADLs requiring help None of the above Safety precautions in home/vehicle No Smoke, vape, chews tobacco No Difficulty hearing No Difficulty seeing No Current Providers Specialists: I have reviewed specialist-related care of the patient in the medical record. Current care team: Patient Care Team: Leoncio Chavez MD as PCP - General (Family Medicine) Kedar De Leon APRN.CNP as Voting Machine Repairer (Family Medicine) Angy Luciano PA-C as Voting Machine Repairer (Family Medicine) Dr. Tobar: cardio Medical/Family history review Reviewed and updated problem list, medical/surgical/family/social history, medications, and allergies. Opioid use review Opioid Medications (last 90 days) No data to display Anxiety/Depression screening PHQ-2 Score: 0 (Lower risk for depression) Recommendation: no further intervention at this time Cognitive screening Score: 4 Cognitive screening reviewed and No further action needed (score 3-5). Functional Observation Was the patient's Timed Up AND Go test unsteady or >= 12 seconds? No Advance Care Planning Patient did not wish or was not able to name a surrogate decision maker or provide an advance care plan Measurements BP 98/58 Pulse 72 Resp 16 Ht 174 cm (5' 8.5) Wt 99.8 kg (220 lb) BMI 32.96 kg/m? Vision Screening: Follows with optometry/ophthalmology Assessment/Plan Medicare annual wellness visit, subsequent (Z00.00) - Counseled on healthy diet and regular exercise - Fall avoidance information provided - Personalized prevention plan provided See Below Chief Complaint Patient presents with: Medicare Wellness Exam HPI Yvonne Jones is a 84 year old male who presents here today for Chronic Medical Conditions. and Medicare Annual Visit. Patient with hx of HTN, hyperlipidemia, CHF, CAD, elevated glucose, anemia, elevated PSA and those as below. Component Ref Range AND Units 5 mo ago (12/22/23) 1 yr ago (06/07/23) 1 yr ago (11/25/22) 2 yr ago (05/27/22) 2 yr ago (10/15/21) 3 yr ago (03/20/21) 3 yr ago (06/26/20) Hemoglobin A1C 4.3 - 5.6 % 6.0 High 5.7 High CM 5.8 High CM 5.7 High CM 5.9 High CM 5.9 High CM 5.9 High Past medical history, appointments, medications, allergies reviewed. Previous Medical History PAST MEDICAL HISTORY Diagnosis Date Advance directive discussed with patient 05/27/2022 Discussed 05/2022: Packets given Anemia of chronic disease 10/16/2021 Benign non-nodular prostatic hyperplasia without lower urinary tract symptoms 05/27/2015 Chronic diastolic CHF (congestive heart failure) (HCC) Chronic rhinitis 08/27/2012 Coronary artery disease due to lipid rich plaque 05/27/2015 left Cx, sees Dr. Breana Linder Diastolic dysfunction 2012 Elevated hemoglobin A1c 06/20/2018 Elevated PSA 06/08/2015 Essential hypertension Ex-smoker 12/20/2018 Started around age 17 up to 2 cigs quit around 18. External hemorrhoid 12/20/2018 Medicare annual wellness visit, subsequent 12/02/2016 Medicare part B: 04/21/2007 last done: 12/23/2019 Mixed hyperlipidemia Obesity, Class II, BMI 35-39.9 06/07/2023 Obstructive sleep apnea Rosacea Previous Surgical History PAST SURGICAL HISTORY Procedure Laterality Date COLONOSCOPY 1997 neg COLSC FLX W/REMOVAL LESION BY HOT BX FORCEPS 08/14/15 hyperplastic polyp - 10 year follow up PAST SURGICAL HISTORY OF Right 2016 ring finger Rt Fx repair Family History FAMILY HISTORY Problem Relation Age of Onset Stroke Mother 92 other (hypotension) Mother Ischemic Heart Disease Father 59 [place] Cancer Father skin cancer Ischemic Heart Disease Paternal Grandfather Ischemic Heart Disease Paternal Uncle 3 uncles Colon Cancer No Family History Prostate Cancer No Family History Alzheimer's Disease No Family History Patient Allergies ALLERGIES Allergen Reactions Seasonal Allergies Intolerance Testing 06/18/12 negative. Patient still bothered by allergens. grass, pollen, ragweed Current Medications Current Outpatient Medications on File Prior to Visit Medication Sig isosorbide mononitrate ER (IMDUR) 30 mg 24 hr tablet Take 0.5 tablets by mouth once daily. ezetimibe (ZETIA) 10 mg tablet Take 1 tablet by mouth once daily. dilTIAZem CD (CARDIZEM CD) 240 mg 24 hr capsule Take 1 capsule by mouth once daily. atorvastatin (LIPITOR) 80 mg tablet Take 1 tablet by mouth (more content not included)...[facility]01-15-2025 Telephone encounter Note* Telephone Encounter - Leoncio Chavez MD - 06/05/2024 4:57 PM EST Orders placed. [facility]01-15-2025 Miscellaneous Notes* Telephone Encounter - Leoncio Chavez MD - 06/05/2024 4:57 PM EST Orders placed. * Telephone Encounter - Dimas Russell MA - 06/05/2024 3:40 PM EST Patient coming in this Monday for physical. Please place orders. Dimas Russell MA documented in this encounterReg[facility]01-15-2025 Telephone encounter Note * Telephone Encounter - Dimas Russell MA - 06/05/2024 3:40 PM EST Patient coming in this Monday for physical. Please place orders. Dimas Russell MA [facility]09-10-2024 NoteHNO ID: [id number] Author: JAMES QUICK, DO Service: ? Author Type: Physician Type: Progress Notes Filed: 01/30/2024 09:11 Note Text: [facility] OUTPATIENT VISIT DATE January 30, 2024 PRIMARY CARE PHYSICIAN: Leoncio Chavez [address] [place] [address] HISTORY OF PRESENT ILLNESS: Mr. Jones is a 83 year old male. The patient returns for follow-up secondary to a history of chronic diastolic heart failure, hypertension, hyperlipidemia, prediabetes, abnormal nuclear stress imaging demonstrating infarct but no ischemia and more recently an abnormal lower extremity DIVYA suggesting PAD of his left lower extremity. Previous symptoms concerning for claudication have resolved. He denies chest discomfort, dyspnea, orthopnea, paroxysmal after distinct palpitations, near-syncope or syncope. He is continue to go back and forth between this area and their home in the [facility]. They spend the majority of their trujillo there. PLAN AND RECOMMENDATIONS: The patient remained stable thought apparent symptoms that would suggest angina or cardiac compensation. He appears to have peripheral arterial disease of mild degree by recent ABIs. He however is asymptomatic. Heart rate, blood pressure recent cholesterol profile are favorable. We have therefore made no additions or changes. Dietary and lifestyle modification was reemphasized to facilitate risk factor reduction and heart failure prevention. We will look forward to reevaluating him in the spring upon his return from the [facility]. Vitals: BP 118/66 Pulse 75 Ht 175.3 cm (5' 9) Wt 104.4 kg (230 lb 2.6 oz) SpO2 96% BMI 33.99 kg/m? Physical Exam Vitals reviewed. Constitutional: General: He is not in acute distress. Appearance: He is well-developed. He is not diaphoretic. HENT: Head: Normocephalic and atraumatic. Right Ear: External ear normal. Left Ear: External ear normal. Nose: Nose normal. Eyes: General: No scleral icterus. Right eye: No discharge. Left eye: No discharge. Pupils: Pupils are equal, round, and reactive to light. Neck: Thyroid: No thyromegaly. Vascular: No JVD. Cardiovascular: Rate and Rhythm: Normal rate and regular rhythm. Heart sounds: No murmur heard. No friction rub. No gallop. Pulmonary: Effort: Pulmonary effort is normal. No respiratory distress. Breath sounds: Normal breath sounds. No wheezing or rales. Abdominal: General: Bowel sounds are normal. Palpations: Abdomen is soft. Musculoskeletal: General: Normal range of motion. Cervical back: Neck supple. Skin: General: Skin is warm and dry. Coloration: Skin is not pale. Neurological: Mental Status: He is alert and oriented to person, place, and time. Cranial Nerves: No cranial nerve deficit. Psychiatric: Mood and Affect: Mood is not anxious or depressed. Behavior: Behavior normal. Thought Content: Thought content normal. Judgment: Judgment normal. Review of Systems Constitutional: Negative for activity change, appetite change, fatigue and unexpected weight change. HENT: Negative for ear pain and trouble swallowing. Eyes: Negative for pain and visual disturbance. Respiratory: Positive for shortness of breath (improved). Negative for chest tightness. Cardiovascular: Negative for chest pain, palpitations and leg swelling. Gastrointestinal: Negative for abdominal pain and blood in stool. Endocrine: Negative for cold intolerance and heat intolerance. Genitourinary: Negative for dysuria, hematuria and scrotal swelling. Musculoskeletal: Positive for arthralgias. Negative for myalgias. Skin: Negative for pallor and rash. Allergic/Immunologic: Negative for immunocompromised state. Neurological: Negative for dizziness, syncope and light-headedness. Hematological: Negative for adenopathy. Does not bruise/bleed easily. Psychiatric/Behavioral: Negative for sleep disturbance. The patient is not nervous/anxious. 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 Toussaint No date: 2012: Diastolic dysfunction 06/20/2018: Elevated hemoglobin A1c 06/08/2015: Elevated PSA No date: Essential hypertension 12/20/2018: Ex-smoker Comment: Started around age 17 up to 2 cigs quit around 18. 12/20/2018: External hemorrhoid 12/02/2016: Medicare annual wellness visit, subsequent Comment: Medicare part B: 04/21/2007 last done: 12/23/2019 No date: Mixed hyperlipidemia 06/07/2023: Obesity, Class II, BMI 35-39.9 No date: (more content not included)...[facility]09-10-2024 History of Present illness Narrative* James Quick, - 01/30/2024 8:37 AM EDT Images from the original note were not included. [facility] OUTPATIENT VISIT DATE January 30, 2024 PRIMARY CARE PHYSICIAN: Leoncio Chavez [address] [place] [address] HISTORY OF PRESENT ILLNESS: Mr. Jones is a 83 year old male. The patient returns for follow-up secondary to a history of chronic diastolic heart failure, hypertension, hyperlipidemia, prediabetes, abnormal nuclear stress imaging demonstrating infarct but no ischemia and more recently an abnormal lower extremity DIVYA suggesting PAD of his left lower extremity. Previous symptoms concerning for claudication have resolved. He denies chest discomfort, dyspnea, orthopnea, paroxysmal after distinct palpitations, near-syncope or syncope. He is continue to go back and forth between this area and their home in the [facility]. They spend the majority of their truj[place] there. PLAN AND RECOMMENDATIONS: The patient remained stable thought apparent symptoms that would suggest angina or cardiac compensation. He appears to have peripheral arterial disease of mild degree by recent ABIs. He however is asymptomatic. Heart rate, blood pressure recent cholesterol profile are favorable. We have therefore made no additions or changes. Dietary and lifestyle modification was reemphasized to facilitate risk factor reduction and heart failure prevention. We will look forward to reevaluating him in the spring upon his return from the [facility]. Vitals: BP 118/66 Pulse 75 Ht 175.3 cm (5' 9) Wt 104.4 kg (230 lb 2.6 oz) SpO2 96% BMI 33.99 kg/m Physical Exam Vitals reviewed. Constitutional: General: He is not in acute distress. Appearance: He is well-developed. He is not diaphoretic. HENT: Head: Normocephalic and atraumatic. Right Ear: External ear normal. Left Ear: External ear normal. Nose: Nose normal. Eyes: General: No scleral icterus. Right eye: No discharge. Left eye: No discharge. Pupils: Pupils are equal, round, and reactive to light. Neck: Thyroid: No thyromegaly. Vascular: No JVD. Cardiovascular: Rate and Rhythm: Normal rate and regular rhythm. Heart sounds: No murmur heard. No friction rub. No gallop. Pulmonary: Effort: Pulmonary effort is normal. No respiratory distress. Breath sounds: Normal breath sounds. No wheezing or rales. Abdominal: General: Bowel sounds are normal. Palpations: Abdomen is soft. Musculoskeletal: General: Normal range of motion. Cervical back: Neck supple. Skin: General: Skin is warm and dry. Coloration: Skin is not pale. Neurological: Mental Status: He is alert and oriented to person, place, and time. Cranial Nerves: No cranial nerve deficit. Psychiatric: Mood and Affect: Mood is not anxious or depressed. Behavior: Behavior normal. Thought Content: Thought content normal. Judgment: Judgment normal. Review of Systems Constitutional: Negative for activity change, appetite change, fatigue and unexpected weight change. HENT: Negative for ear pain and trouble swallowing. Eyes: Negative for pain and visual disturbance. Respiratory: Positive for shortness of breath (improved). Negative for chest tightness. Cardiovascular: Negative for chest pain, palpitations and leg swelling. Gastrointestinal: Negative for abdominal pain and blood in stool. Endocrine: Negative for cold intolerance and heat intolerance. Genitourinary: Negative for dysuria, hematuria and scrotal swelling. Musculoskeletal: Positive for arthralgias. Negative for myalgias. Skin: Negative for pallor and rash. Allergic/Immunologic: Negative for immunocompromised state. Neurological: Negative for dizziness, syncope and light-headedness. Hematological: Negative for adenopathy. Does not bruise/bleed easily. Psychiatric/Behavioral: Negative for sleep disturbance. The patient is not nervous/anxious. 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 Toussaint No date: Dandruff 2012: Diastolic dysfunction 06/20/2018: Elevated hemoglobin A1c 06/08/2015: Elevated PSA No date: Essential hypertension 12/20/2018: Ex-smoker Comment: Started around age 17 up to 2 cigs quit around 18. 12/20/2018: External hemorrhoid 12/02/2016: Medicare annual wellness visit, subsequent Comment: Medicare part B: 04/21/2007 last done: 12/23/2019 No date: Mixed hyperlipidemia 06/07/2023: Obesity, Class II, BMI 35-39.9 No date: Obstructive sleep apnea No date: Rosacea PAST SURGICAL HISTORY 1998: COLONOSCOPY Comment: neg 08/14/15: COLSC FLX W/REMOVAL LESION BY HOT BX FORCEPS Comment: hyperplastic polyp - 10 year follow up 2016: PAST SURGICAL HISTORY OF; Right Comment: ring finger Rt Fx repair Social History Tobacco Use Smoking status: Former Current packs/day: 0.00 Types: Cigarettes Quit date: 03/21/1962 Years since quittin.9 Smokeless tobacco: Never Tobacco comments: total of a dozen cigarettes Vaping Use Vaping status: Never Used Substance Use Topics Alcohol use: Yes Comment: very rare - glass of wine, several times per year Drug use: No FAMILY HISTORY Problem Relation Age of Onset Stroke Mother 92 other (hypotension) Mother Ischemic Heart Disease Father 59 [place] Cancer Father skin cancer Ischemic Heart Disease Paternal Grandfather Ischemic Heart Disease Paternal Uncle 3 uncles Colon Cancer No Family History Prostate Cancer No Family History Alzheimer's Disease No Family History ALLERGIES Allergen Reactions Seasonal Allergies Intolerance Testing 06/18/12 negative. Patient still bothered by allergens. grass, pollen, ragweed CURRENT MEDICATIONS: isosorbide mononitrate ER (IMDUR) 30 mg 24 hr tablet Take 0.5 tablets by mouth once daily. ezetimibe (ZETIA) 10 mg tablet Take 1 tablet by mouth once daily. dilTIAZem CD (CARDIZEM CD) 240 mg 24 hr capsule Take 1 capsule by mouth once daily. atorvastatin (LIPITOR) 80 mg tablet Take 1 tablet by mouth once daily. hydroCHLOROthiazide 12.5 mg capsule Take 1 capsule by mouth once daily. losartan (COZAAR) 100 mg tablet Take 1 tablet by mouth once daily. aspirin, enteric coated (ASPIRIN, ENTERIC COATED) 81 mg EC tablet Take 1 tablet by mouth once daily. omega-3 fatty acids 1,000 mg cap Take 1 capsule by mouth once daily. cetirizine (ZYRTEC) 10 mg tablet Take 1 tablet by mouth once daily. ibuprofen (MOTRIN) 200 mg tablet Take 1-2 tablets by mouth every 6 hours as needed for Pain (Take with food.). artificial tear, Hypromellose, (GENTEAL MODERATE) 0.3 % Drop Use 1 Drop in both eyes as needed. James Quick DO, [facility], [facility] Superintendent Laundry, [facility] Ambulatory Cardiology Superintendent Laundry, [facility] Cardiac Rehabilitation Superintendent Laundry, [facility] Cardiac [facility] Superintendent Laundry, [facility] Superintendent Laundry, [facility] Ambulatory Cardiology Clinical Rotary Rig Engine Operator Profressor of Medicine, [facility] Staff Pattern Finisher, Masha Garsia Department of Cardiovascular Medicine/Heart and Vascular [place], [facility] Please note: This note has been produced using speech recognition software and may contain errors related to that system including alverto, punctuation, spelling, words, gender and phrases that may be inappropriate. documented in this encounterReg[facility]08-05-2024 Telephone encounter Note * Telephone Encounter - Alfreda Cervantes RN - 12/25/2023 4:49 PM EDT Pt called and is notified of providers results and instructions. Pt voices understanding. Alfreda Cervantes RN [facility]08-05-2024 Miscellaneous Notes* Telephone Encounter - Alfreda Cervantes RN - 12/25/2023 4:49 PM EDT Pt called and is notified of providers results and instructions. Pt voices understanding. Alfreda Cervantes RN * Telephone Encounter - Kedar De Leon APRN.SYSTEMS TRAINER - 12/25/2023 9:45 AM EDT Please let patient know his Hgba1c increased from 5.7 to 6.0. His BUN and creatinine are also elevated. I would like patient to repeat kidney function labs in 2 week. Patient should stay well hydrated in the meantime as this may be the cause of this elevation. [facility] Telephone encounter Note * Telephone Encounter - Kedar De Leon APRN.CNP - 12/25/2023 9:45 AM EDT Please let patient know his Hgba1c increased from 5.7 to 6.0. His BUN and creatinine are also elevated. I would like patient to repeat kidney function labs in 2 week. Patient should stay well hydrated in the meantime as this may be the cause of this elevation. [facility]24 NoteHNO ID: [id number] Author: KEDAR DE LEON APRN.CNP Service: ? Author Type: Nurse Practitioner Type: Progress Notes Filed: 12/22/2023 08:56 Note Text: Chief Complaint Patient presents with: 6 Month Exam HPI Yvonne Jones is a 83 year old male who presents here today for Above Complaints.. Patient presents for routine follow up. Patient reports some orthostatic dizziness the past few days but says this has improved since he increased his water intake. Past medical history, appointments, medications, allergies reviewed. Previous Medical History PAST MEDICAL HISTORY 05/27/2022: Advance directive discussed with patient Comment: Discussed 05/2022: Packets given 10/16/2021: Anemia of chronic disease 05/27/2015: Benign non-nodular prostatic hyperplasia without lower urinary tract symptoms No date: Chronic diastolic CHF (congestive heart failure) (HCC) 08/27/2012: Chronic rhinitis 05/27/2015: Coronary artery disease due to lipid rich plaque Comment: left Cx, sees Dr. Toussaint No date: Dandruff 2012: Diastolic dysfunction 06/20/2018: Elevated hemoglobin A1c 06/08/2015: Elevated PSA No date: Essential hypertension 12/20/2018: Ex-smoker Comment: Started around age 17 up to 2 cigs quit around 18. 12/20/2018: External hemorrhoid 12/02/2016: Medicare annual wellness visit, subsequent Comment: Medicare part B: 04/21/2007 last done: 12/23/2019 No date: Mixed hyperlipidemia 06/07/2023: Obesity, Class II, BMI 35-39.9 No date: Obstructive sleep apnea No date: Rosacea Previous Surgical History PAST SURGICAL HISTORY 1997: COLONOSCOPY Comment: neg 08/14/15: COLSC FLX W/REMOVAL LESION BY HOT BX FORCEPS Comment: hyperplastic polyp - 10 year follow up 2016: PAST SURGICAL HISTORY OF; Right Comment: ring finger Rt Fx repair Family History FAMILY HISTORY Problem Relation Age of Onset Stroke Mother 92 other (hypotension) Mother Ischemic Heart Disease Father 59 [place] Cancer Father skin cancer Ischemic Heart Disease Paternal Grandfather Ischemic Heart Disease Paternal Uncle 3 uncles Colon Cancer No Family History Prostate Cancer No Family History Alzheimer's Disease No Family History Patient Allergies ALLERGIES Allergen Reactions Seasonal Allergies Intolerance Testing 06/18/12 negative. Patient still bothered by allergens. grass, pollen, ragweed Current Medications Current Outpatient Medications on File Prior to Visit Medication Sig ezetimibe (ZETIA) 10 mg tablet Take 1 tablet by mouth once daily. isosorbide mononitrate ER (IMDUR) 30 mg 24 hr tablet Take 0.5 tablets by mouth once daily. dilTIAZem CD (CARDIZEM CD) 240 mg 24 hr capsule Take 1 capsule by mouth once daily. atorvastatin (LIPITOR) 80 mg tablet Take 1 tablet by mouth once daily. hydroCHLOROthiazide 12.5 mg capsule Take 1 capsule by mouth once daily. losartan (COZAAR) 100 mg tablet Take 1 tablet by mouth once daily. ketoconazole (NIZORAL) 2 % shampoo apply to affected area once daily if needed (Patient not taking: Reported on 08/30/2023) aspirin, enteric coated (ASPIRIN, ENTERIC COATED) 81 mg EC tablet Take 1 tablet by mouth once daily. omega-3 fatty acids 1,000 mg cap Take 1 capsule by mouth once daily. cetirizine (ZYRTEC) 10 mg tablet Take 1 tablet by mouth once daily. ibuprofen (MOTRIN) 200 mg tablet Take 1-2 tablets by mouth every 6 hours as needed for Pain (Take with food.). artificial tear, Hypromellose, (GENTEAL MODERATE) 0.3 % Drop Use 1 Drop in both eyes as needed. No current facility-administered medications on file prior to visit. Social History Social History Tobacco Use Smoking status: Former Types: Cigarettes Quit date: 03/21/1962 Years since quittin.7 Smokeless tobacco: Never Tobacco comments: total of a dozen cigarettes Vaping Use Vaping Use: Never used Substance Use Topics Alcohol use: Yes Comment: very rare - glass of wine, several times per year Drug use: No Review of Symptoms REVIEW OF SYSTEMS SEE HPI EXAM: BP 108/62 Pulse 65 Resp 14 Wt 104.3 kg (230 lb) BMI 33.97 kg/m? General Appearance: Well appearing, alert, in no acute distress, well-hydrated, well nourished.. Lungs: Lungs clear to auscultation. No wheezing, rhonchi, rales.. Heart: RRR without murmur, gallop, or rubs. No ectopy. Health Maintenance List Depression Screening Never done Anxiety Screening Never done Covid-19 Vaccine( season) due on 09/01/2023 DTaP,Tdap,Td Vaccine(1 - Tdap) due on 06/07/2024 RSV Vaccine(1 - 1-dose 60+ series) due on 06/07/2024 Shingrix Vaccine(1 of 2) due on 06/07/2024 Influenza Vaccine(1) due on 01/21/2024 LDL Cholesterol due on 06/07/2024 Diabetes Screening due on 06/07/2026 Advance Directive Discussion Completed Pneumococcal Vaccine: 65+ Completed Colorectal Cancer Screening Discontinued ASSESSMENT/PLAN: 1. Essential hypertension - ICD9: 401.9, ICD10: I10 (primary diagnosis) - Controlled - Continue current me (more content not included)...[facility] 12-22-2023 History of Present illness Narrative* Kedar De Leon, [facility] - 12/22/2023 8:40 AM EDT Chief Complaint Patient presents with: 6 Month Exam HPI Yvonne Jones is a 83 year old male who presents here today for Above Complaints.. Patient presents for routine follow up. Patient reports some orthostatic dizziness the past few days but says this has improved since he increased his water intake. Past medical history, appointments, medications, allergies reviewed. Previous Medical History PAST MEDICAL HISTORY 05/27/2022: Advance directive discussed with patient Comment: Discussed 05/2022: Packets given 10/16/2021: Anemia of chronic disease 05/27/2015: Benign non-nodular prostatic hyperplasia without lower urinary tract symptoms No date: Chronic diastolic CHF (congestive heart failure) (HCC) 08/27/2012: Chronic rhinitis 05/27/2015: Coronary artery disease due to lipid rich plaque Comment: left Cx, sees Dr. Toussaint No date: 2012: Diastolic dysfunction 06/20/2018: Elevated hemoglobin A1c 06/08/2015: Elevated PSA No date: Essential hypertension 12/20/2018: Ex-smoker Comment: Started around age 17 up to 2 cigs quit around 18. 12/20/2018: External hemorrhoid 12/02/2016: Medicare annual wellness visit, subsequent Comment: Medicare part B: 04/21/2007 last done: 12/23/2019 No date: Mixed hyperlipidemia 06/07/2023: Obesity, Class II, BMI 35-39.9 No date: Obstructive sleep apnea No date: Rosacea Previous Surgical History PAST SURGICAL HISTORY 1998: COLONOSCOPY Comment: neg 08/14/15: COLSC FLX W/REMOVAL LESION BY HOT BX FORCEPS Comment: hyperplastic polyp - 10 year follow up 2016: PAST SURGICAL HISTORY OF; Right Comment: ring finger Rt Fx repair Family History FAMILY HISTORY Problem Relation Age of Onset Stroke Mother 92 other (hypotension) Mother Ischemic Heart Disease Father 59 [place] Cancer Father skin cancer Ischemic Heart Disease Paternal Grandfather Ischemic Heart Disease Paternal Uncle 3 uncles Colon Cancer No Family History Prostate Cancer No Family History Alzheimer's Disease No Family History Patient Allergies ALLERGIES Allergen Reactions Seasonal Allergies Intolerance Testing 06/18/12 negative. Patient still bothered by allergens. grass, pollen, ragweed Current Medications Current Outpatient Medications on File Prior to Visit Medication Sig ezetimibe (ZETIA) 10 mg tablet Take 1 tablet by mouth once daily. isosorbide mononitrate ER (IMDUR) 30 mg 24 hr tablet Take 0.5 tablets by mouth once daily. dilTIAZem CD (CARDIZEM CD) 240 mg 24 hr capsule Take 1 capsule by mouth once daily. atorvastatin (LIPITOR) 80 mg tablet Take 1 tablet by mouth once daily. hydroCHLOROthiazide 12.5 mg capsule Take 1 capsule by mouth once daily. losartan (COZAAR) 100 mg tablet Take 1 tablet by mouth once daily. ketoconazole (NIZORAL) 2 % shampoo apply to affected area once daily if needed (Patient not taking:Reported on 08/30/2023) aspirin, enteric coated (ASPIRIN, ENTERIC COATED) 81 mg EC tablet Take 1 tablet by mouth once daily. omega-3 fatty acids 1,000 mg cap Take 1 capsule by mouth once daily. cetirizine (ZYRTEC) 10 mg tablet Take 1 tablet by mouth once daily. ibuprofen (MOTRIN) 200 mg tablet Take 1-2 tablets by mouth every 6 hours as needed for Pain (Take with food.). artificial tear, Hypromellose, (GENTEAL MODERATE) 0.3 % Drop Use 1 Drop in both eyes as needed. No current facility-administered medications on file prior to visit. Social History Social History Tobacco Use Smoking status: Former Types: Cigarettes Quit date: 03/21/1962 Years since quittin.7 Smokeless tobacco: Never Tobacco comments: total of a dozen cigarettes Vaping Use Vaping Use: Never used Substance Use Topics Alcohol use: Yes Comment: very rare - glass of wine, several times per year Drug use: No Review of Symptoms REVIEW OF SYSTEMS SEE HPI EXAM: BP 108/62 Pulse 65 Resp 14 Wt 104.3 kg (230 lb) BMI 33.97 kg/m General Appearance: Well appearing, alert, in no acute distress, well-hydrated, well nourished.. Lungs: Lungs clear to auscultation. No wheezing, rhonchi, rales.. Heart: RRR without murmur, gallop, or rubs. No ectopy. Health Maintenance List Depression Screening Never done Anxiety Screening Never done Covid-19 Vaccine(2022- season) due on 09/01/2023 DTaP,Tdap,Td Vaccine(1 - Tdap) due on 06/07/2024 RSV Vaccine(1 - 1-dose 60+ series) due on 06/07/2024 Shingrix Vaccine(1 of 2) due on 06/07/2024 Influenza Vaccine(1) due on 01/21/2024 LDL Cholesterol due on 06/07/2024 Diabetes Screening due on 06/07/2026 Advance Directive Discussion Completed Pneumococcal Vaccine: 65+ Completed Colorectal Cancer Screening Discontinued ASSESSMENT/PLAN: 1. Essential hypertension - ICD9: 401.9, ICD10: I10 (primary diagnosis) - Controlled - Continue current medications - Recommend home blood pressure monitoring, to bring results to next visit - Encouraged sodium restriction, DASH or Mediterranean diet - Recommend regular aerobic exercise - Discussed need for and benefit of weight loss. BMI 33.96 kg/(m^2) 2. Screening for depression - ICD9: V79.0, ICD10: Z13.31 - DEPRESSION SCREENING 3. Encounter for screening examination for other mental health and behavioral disorders - ICD9: V79.8, ICD10: Z13.39 - ANXIETY SCREENING 4. Chronic diastolic CHF (congestive heart failure) (HCC) - ICD9: 428.32, 428.0, ICD10: I50.32 - Continue current medications - Encouraged sodium restriction - Encouraged daily weights 5. Coronary artery disease due to lipid rich plaque - ICD9: 414.00, 414.3, ICD10: I25.10, I25.83 -Follows with cardiology -Continue current medications 6. Mixed hyperlipidemia - ICD9: 272.2, ICD10: E78.2 - Control undetermined, due for labs - Continue current medications - Counseled on healthy diet and regular exercise - Discussed need for and benefit of weight loss. BMI 33.96 kg/(m^2) 7. Obesity, Class II, BMI 35-39.9 - ICD9: 278.00, ICD10: E66.9 -weight stable 8. Obstructive sleep apnea - ICD9: 327.23, ICD10: G47.33 -Does not currently wear cpap 9. Benign non-nodular prostatic hyperplasia without lower urinary tract symptoms - ICD9: 600.90, ICD10: N40.0 -Labs due. Kedar De Leon APRN.SYSTEMS TRAINER documented in this [facility] Telephone encounter Note * Telephone Encounter - Dianna Velez RN - 10/06/2023 9:57 AM EDT Called pt. No answer. Left VM to call back for results. ABIs indicate mild disease at rest of the left lower extremity. Continue current medical regimen Per Dr. Quick [facility] Miscellaneous Notes* Telephone Encounter - Dianna Velez RN - 10/06/2023 9:57 AM EDT Called pt. No answer. Left VM to call back for results. ABIs indicate mild disease at rest of the left lower extremity. Continue current medical regimen Per Dr. Quick documented in this [facility]Reg[facility]24 Miscellaneous Notes* Telephone Encounter - Flor Coronel - 08/31/2023 1:39 PM EDT PT is scheduled * Telephone Encounter - Ciro Devlin LPN - 08/30/2023 12:16 PM EDT Please call Yvonne to schedule his PVR as ordered by Dr Quick. documented in this encounterReg[facility]04-10-2024 NoteHNO ID: [id number] Author: JAMES QUICK, DO Service: ? Author Type: Physician Type: Progress Notes Filed: 08/30/2023 12:06 Note Text: [facility] OUTPATIENT VISIT DATE August 30, 2023 PRIMARY CARE PHYSICIAN: Leoncio Chavez [address] [place] [address] HISTORY OF PRESENT ILLNESS: Mr. Jones is a 83 year old male. The patient returns for follow-up for history of chronic diastolic heart failure, coronary disease, hypertension, hyperlipidemia and obstructive sleep apnea unable to wear the CPAP mask. He denies chest discomfort, dyspnea, orthopnea, paroxysmal nocturnal dyspnea, palpitations, near-syncope or syncope. He unfortunately did not get DIVYA previously ordered and continues to have symptoms of possible claudication. PLAN AND RECOMMENDATIONS: Patient overall appears stable from a cardiovascular standpoint without apparent symptoms that would suggest angina or cardiac decompensation. LDL cholesterol is higher compared to previous but may continue with dietary holidays. Heart rate and blood pressure are favorable on his current optimal medical therapy for which we have made no additions or changes. Will schedule the DIVYA in the future. In the absence of findings will otherwise look forward to seeing him in the fall prior to his departure from the [facility]. Dietary and lifestyle modification was otherwise emphasized to facilitate risk factor reduction and heart failure prevention. Vitals: BP 124/58 Pulse 68 Ht 175.3 cm (5' 9) Wt 108 kg (238 lb 1.6 oz) SpO2 94% BMI 35.16 kg/m? Physical Exam Vitals reviewed. Constitutional: General: He is not in acute distress. Appearance: He is well-developed. He is not diaphoretic. HENT: Head: Normocephalic and atraumatic. Right Ear: External ear normal. Left Ear: External ear normal. Nose: Nose normal. Eyes: General: No scleral icterus. Right eye: No discharge. Left eye: No discharge. Pupils: Pupils are equal, round, and reactive to light. Neck: Thyroid: No thyromegaly. Vascular: No JVD. Cardiovascular: Rate and Rhythm: Normal rate and regular rhythm. Heart sounds: No murmur heard. No friction rub. No gallop. Pulmonary: Effort: Pulmonary effort is normal. No respiratory distress. Breath sounds: Normal breath sounds. No wheezing or rales. Abdominal: General: Bowel sounds are normal. Palpations: Abdomen is soft. Musculoskeletal: General: Normal range of motion. Cervical back: Neck supple. Skin: General: Skin is warm and dry. Coloration: Skin is not pale. Neurological: Mental Status: He is alert and oriented to person, place, and time. Cranial Nerves: No cranial nerve deficit. Psychiatric: Mood and Affect: Mood is not anxious or depressed. Behavior: Behavior normal. Thought Content: Thought content normal. Judgment: Judgment normal. Review of Systems Constitutional: Negative for activity change, appetite change, fatigue and unexpected weight change. HENT: Negative for ear pain and trouble swallowing. Eyes: Negative for pain and visual disturbance. Respiratory: Positive for shortness of breath (improved). Negative for chest tightness. Cardiovascular: Negative for chest pain, palpitations and leg swelling. Gastrointestinal: Negative for abdominal pain and blood in stool. Endocrine: Negative for cold intolerance and heat intolerance. Genitourinary: Negative for dysuria, hematuria and scrotal swelling. Musculoskeletal: Positive for arthralgias. Negative for myalgias. Skin: Negative for pallor and rash. Allergic/Immunologic: Negative for immunocompromised state. Neurological: Negative for dizziness, syncope and light-headedness. Hematological: Negative for adenopathy. Does not bruise/bleed easily. Psychiatric/Behavioral: Negative for sleep disturbance. The patient is not nervous/anxious. 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 Breana Linder Diastolic dysfunction 2012 Elevated hemoglobin A1c 06/20/2018 Elevated PSA 06/08/2015 Essential hypertension Ex-smoker 12/20/2018 Started around age 17 up to 2 cigs quit around 18. External hemorrhoid 12/20/2018 Medicare annual wellness visit, subsequent 12/02/2016 Medicare part B: 04/21/2007 last done: 12/23/2019 Mixed hyperlipidemia Obesity, Class II, BMI 35-39.9 06/07/2023 Obstructive sleep apnea Rosacea PAST SURGICAL HISTORY Procedure Laterality Date COLONOSCOPY 1997 neg COLSC FLX W/REMOVAL LESION BY HOT BX FORCEPS 08/14/15 hyperplas (more content not included)...[id number] History of Present illness Narrative* James Quick, - 08/30/2023 11:44 AM EDT Images from the original note were not included. [facility] OUTPATIENT VISIT DATE August 30, 2023 PRIMARY CARE PHYSICIAN: Leoncio Chavez [address] [place] [address] HISTORY OF PRESENT ILLNESS: Mr. Jones is a 83 year old male. The patient returns for follow-up for history of chronic diastolic heart failure, coronary disease, hypertension, hyperlipidemia and obstructive sleep apnea unable to wear the CPAP mask. He denies chest discomfort, dyspnea, orthopnea, paroxysmal nocturnal dyspnea, p alpitations, near-syncope or syncope. He unfortunately did not get DIVYA previously ordered and continues to have symptoms of possible claudication. PLAN AND RECOMMENDATIONS: Patient overall appears stable from a cardiovascular standpoint without apparent symptoms that would suggest angina or cardiac decompensation. LDL cholesterol is higher compared to previous but may continue with dietary holidays. Heart rate and blood pressure are favorable on his current optimal medical therapy for which we have made no additions or changes. Will schedule the DIVYA in the future. In the absence of findings will otherwise look forward to seeing him in the fall prior to his departure from the [facility]. Dietary and lifestyle modification was otherwise emphasized to facilitate risk factor reduction and heart failure prevention. Vitals: BP 124/58 Pulse 68 Ht 175.3 cm (5' 9) Wt 108 kg (238 lb 1.6 oz) SpO2 94% BMI 35.16 kg/m Physical Exam Vitals reviewed. Constitutional: General: He is not in acute distress. Appearance: He is well-developed. He is not diaphoretic. HENT: Head: Normocephalic and atraumatic. Right Ear: External ear normal. Left Ear: External ear normal. Nose: Nose normal. Eyes: General: No scleral icterus. Right eye: No discharge. Left eye: No discharge. Pupils: Pupils are equal, round, and reactive to light. Neck: Thyroid: No thyromegaly. Vascular: No JVD. Cardiovascular: Rate and Rhythm: Normal rate and regular rhythm. Heart sounds: No murmur heard. No friction rub. No gallop. Pulmonary: Effort: Pulmonary effort is normal. No respiratory distress. Breath sounds: Normal breath sounds. No wheezing or rales. Abdominal: General: Bowel sounds are normal. Palpations: Abdomen is soft. Musculoskeletal: General: Normal range of motion. Cervical back: Neck supple. Skin: General: Skin is warm and dry. Coloration: Skin is not pale. Neurological: Mental Status: He is alert and oriented to person, place, and time. Cranial Nerves: No cranial nerve deficit. Psychiatric: Mood and Affect: Mood is not anxious or depressed. Behavior: Behavior normal. Thought Content: Thought content normal. Judgment: Judgment normal. Review of Systems Constitutional: Negative for activity change, appetite change, fatigue and unexpected weight change. HENT: Negative for ear pain and trouble swallowing. Eyes: Negative for pain and visual disturbance. Respiratory: Positive for shortness of breath (improved). Negative for chest tightness. Cardiovascular: Negative for chest pain, palpitations and leg swelling. Gastrointestinal: Negative for abdominal pain and blood in stool. Endocrine: Negative for cold intolerance and heat intolerance. Genitourinary: Negative for dysuria, hematuria and scrotal swelling. Musculoskeletal: Positive for arthralgias. Negative for myalgias. Skin: Negative for pallor and rash. Allergic/Immunologic: Negative for immunocompromised state. Neurological: Negative for dizziness, syncope and light-headedness. Hematological: Negative for adenopathy. Does not bruise/bleed easily. Psychiatric/Behavioral: Negative for sleep disturbance. The patient is not nervous/anxious. 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 Breana Linder Diastolic dysfunction 2012 Elevated hemoglobin A1c 06/20/2018 Elevated PSA 06/08/2015 Essential hypertension Ex-smoker 12/20/2018 Started around age 17 up to 2 cigs quit around 18. External hemorrhoid 12/20/2018 Medicare annual wellness visit, subsequent 12/02/2016 Medicare part B: 04/21/2007 last done: 12/23/2019 Mixed hyperlipidemia Obesity, Class II, BMI 35-39.9 06/07/2023 Obstructive sleep apnea Rosacea PAST SURGICAL HISTORY Procedure Laterality Date COLONOSCOPY 1997 neg COLSC FLX W/REMOVAL LESION BY HOT BX FORCEPS 08/14/15 hyperplastic polyp - 10 year follow up PAST SURGICAL HISTORY OF Right 2016 ring finger Rt Fx repair Social History Tobacco Use Smoking status: Former Types: Cigarettes Quit date: 03/21/1962 Years since quittin.4 Smokeless tobacco: Never Tobacco comments: total of a dozen cigarettes Vaping Use Vaping Use: Never used Substance Use Topics Alcohol use: Yes Comment: very rare - glass of wine, several times per year Drug use: No FAMILY HISTORY Problem Relation Age of Onset Stroke Mother 92 other (hypotension) Mother Ischemic Heart Disease Father 59 [place] Cancer Father skin cancer Ischemic Heart Disease Paternal Grandfather Ischemic Heart Disease Paternal Uncle 3 uncles Colon Cancer No Family History Prostate Cancer No Family History Alzheimer's Disease No Family History ALLERGIES Allergen Reactions Seasonal Allergies Intolerance Testing 06/18/12 negative. Patient still bothered by allergens. grass, pollen, ragweed CURRENT MEDICATIONS: ezetimibe (ZETIA) 10 mg tablet Take 1 tablet by mouth once daily. isosorbide mononitrate ER (IMDUR) 30 mg 24 hr tablet Take 0.5 tablets by mouth once daily. dilTIAZem CD (CARDIZEM CD) 240 mg 24 hr capsule Take 1 capsule by mouth once daily. atorvastatin (LIPITOR) 80 mg tablet Take 1 tablet by mouth once daily. hydroCHLOROthiazide 12.5 mg capsule Take 1 capsule by mouth once daily. losartan (COZAAR) 100 mg tablet Take 1 tablet by mouth once daily. aspirin, enteric coated (ASPIRIN, ENTERIC COATED) 81 mg EC tablet Take 1 tablet by mouth once daily. omega-3 fatty acids 1,000 mg cap Take 1 capsule by mouth once daily. cetirizine (ZYRTEC) 10 mg tablet Take 1 tablet by mouth once daily. ibuprofen (MOTRIN) 200 mg tablet Take 1-2 tablets by mouth every 6 hours as needed for Pain (Take with food.). artificial tear, Hypromellose, (GENTEAL MODERATE) 0.3 % Drop Use 1 Drop in both eyes as needed. ketoconazole (NIZORAL) 2 % shampoo apply to affected area once daily if needed (Patient not taking:Reported on 08/30/2023) James Quick DO, [facility], [facility] Superintendent Laundry, [facility] Cardiology Superintendent Laundry, [facility] Cardiac Rehabilitation Superintendent Laundry, [facility] Cardiac Rehabilitation Superintendent Laundry, [facility] Congestive Heart Failure Clinic Superintendent Laundry, [facility] Ambulatory Cardiology Clinical Rotary Rig Engine Operator Profressor of Medicine, [facility] - [facility] Staff Pattern Finisher, Masha Garsia Department of Cardiovascular Medicine/Heart and V[facility] [place], [facility] Please note: This note has been produced using speech recognition software and may contain errors related to that system including alverto, punctuation, spelling, words, gender and phrases that may be inappropriate. documented in this encounterRegency Hospital [place]02-02-2024 NoteHNO ID: [id number] Author: JAMES QUICK DO Service: ? Author Type: Physician Type: Progress Notes Filed: 06/23/2023 16:01 Note Text: [facility] SECTION OF [facility]IOLOGY [facility] OUTPATIENT VISIT DATE June 23, 2023 PRIMARY CARE PHYSICIAN: Leoncio Chavez [address] [place] [address] HISTORY OF PRESENT ILLNESS: Mr. Jones is a 83 year old male. The patient returns for follow-up second history of chronic diastolic heart failure and prior history of coronary disease as well as hypertension and hyperlipidemia with recent worsening dyspnea occurring with exertion and abating with rest. Since that time it is dramatically improved. He additionally has lower extremity decreased pulses. He denies chest discomfort, orthopnea, paroxysmal nocturnal dyspnea, palpitations, near-syncope or syncope. EKG performed today demonstrates normal sinus rhythm at 71 bpm PLAN AND RECOMMENDATIONS: The patient overall appears stable without apparent gross symptoms that would suggest angina or cardiac decompensation on his current medical regimen. We have therefore made no additions or changes. Heart rate blood pressure and recent cholesterol profile are favorable his current medical regimen therefore have made no additions or changes as well. He is planning on going down to [place] to work on his house for the next couple months. Will follow-up with him when he returns. Dietary and lifestyle modification was reemphasized to facilitate risk factor reduction and heart failure prevention. He will have lower extremity ABIs performed after his return due to his decreased pulses in his feet. Vitals: BP 124/68 Pulse 77 Resp 16 Ht 175.3 cm (5' 9.02) Wt 108.8 kg (239 lb 13.8 oz) SpO2 96% BMI 35.40 kg/m? Physical Exam Vitals reviewed. Constitutional: General: He is not in acute distress. Appearance: He is well-developed. He is not diaphoretic. HENT: Head: Normocephalic and atraumatic. Right Ear: External ear normal. Left Ear: External ear normal. Nose: Nose normal. Eyes: General: No scleral icterus. Right eye: No discharge. Left eye: No discharge. Pupils: Pupils are equal, round, and reactive to light. Neck: Thyroid: No thyromegaly. Vascular: No JVD. Cardiovascular: Rate and Rhythm: Normal rate and regular rhythm. Heart sounds: No murmur heard. No friction rub. No gallop. Pulmonary: Effort: Pulmonary effort is normal. No respiratory distress. Breath sounds: Normal breath sounds. No wheezing or rales. Abdominal: General: Bowel sounds are normal. Palpations: Abdomen is soft. Musculoskeletal: General: Normal range of motion. Cervical back: Neck supple. Skin: General: Skin is warm and dry. Coloration: Skin is not pale. Neurological: Mental Status: He is alert and oriented to person, place, and time. Cranial Nerves: No cranial nerve deficit. Psychiatric: Mood and Affect: Mood is not anxious or depressed. Behavior: Behavior normal. Thought Content: Thought content normal. Judgment: Judgment normal. Review of Systems Constitutional: Negative for activity change, appetite change, fatigue and unexpected weight change. HENT: Negative for ear pain and trouble swallowing. Eyes: Negative for pain and visual disturbance. Respiratory: Positive for shortness of breath (improved). Negative for chest tightness. Cardiovascular: Negative for chest pain, palpitations and leg swelling. Gastrointestinal: Negative for abdominal pain and blood in stool. Endocrine: Negative for cold intolerance and heat intolerance. Genitourinary: Negative for dysuria, hematuria and scrotal swelling. Musculoskeletal: Positive for arthralgias. Negative for myalgias. Skin: Negative for pallor and rash. Allergic/Immunologic: Negative for immunocompromised state. Neurological: Negative for dizziness, syncope and light-headedness. Hematological: Negative for adenopathy. Does not bruise/bleed easily. Psychiatric/Behavioral: Negative for sleep disturbance. The patient is not nervous/anxious. 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 Breana Linder Diastolic dysfunction 2012 Elevated hemoglobin A1c 06/20/2018 Elevated PSA 06/08/2015 Essential hypertension Ex-smoker 12/20/2018 Started around age 17 up to 2 cigs quit around 18. External hemorrhoid 12/20/2018 Medicare annual wellness visit, subsequent 12/02/2016 Medicare part B: 04/21/2007 last done: 12/23/2019 Mixed hyperlipidemia Obesity, Class II, BMI 35-39.9 (more content not included)...[id number] History of Present illness Narrative* James Quick, DO - 06/23/2023 3:37 PM EST Images from the original note were not included. [facility] SECTION OF [facility]IOLOG[facility] OUTPATIENT VISIT DATE June 23, 2023 PRIMARY CARE PHYSICIAN: Leoncio Chavez [address] [place] [address] HISTORY OF PRESENT ILLNESS: Mr. Jones is a 83 year old male. The patient returns for follow-up second history of chronic diastolic heart failure and prior history of coronary disease as well as hypertension and hyperlipidemia with recent worsening dyspnea occurring with exertion and abating with rest. Since that time it is dr amatically improved. He additionally has lower extremity decreased pulses. He denies chest discomfort, orthopnea, paroxysmal nocturnal dyspnea, palpitations, near-syncope or syncope. EKG performed today demonstrates normal sinus rhythm at 71 bpm PLAN AND RECOMMENDATIONS: The patient overall appears stable without apparent gross symptoms that would suggest angina or cardiac decompensation on his current medical regimen. We have therefore made no additions or changes. Heart rate blood pressure and recent cholesterol profile are favorable his current medical regimen therefore have made no additions or changes as well. He is planning on going down to [place] to work on his house for the next couple months. Will follow-up with him when he returns. Dietary andlifestyle modification was reemphasized to facilitate risk factor reduction and heart failure prevention. He will have lower extremity ABIs performed after his return due to his decreased pulses in his feet. Vitals: BP 124/68 Pulse 77 Resp 16 Ht 175.3 cm (5' 9.02) Wt 108.8 kg (239 lb 13.8 oz) SpO2 96% BMI 35.40 kg/m Physical Exam Vitals reviewed. Constitutional: General: He is not in acute distress. Appearance: He is well-developed. He is not diaphoretic. HENT: Head: Normocephalic and atraumatic. Right Ear: External ear normal. Left Ear: External ear normal. Nose: Nose normal. Eyes: General: No scleral icterus. Right eye: No discharge. Left eye: No discharge. Pupils: Pupils are equal, round, and reactive to light. Neck: Thyroid: No thyromegaly. Vascular: No JVD. Cardiovascular: Rate and Rhythm: Normal rate and regular rhythm. Heart sounds: No murmur heard. No friction rub. No gallop. Pulmonary: Effort: Pulmonary effort is normal. No respiratory distress. Breath sounds: Normal breath sounds. No wheezing or rales. Abdominal: General: Bowel sounds are normal. Palpations: Abdomen is soft. Musculoskeletal: General: Normal range of motion. Cervical back: Neck supple. Skin: General: Skin is warm and dry. Coloration: Skin is not pale. Neurological: Mental Status: He is alert and oriented to person, place, and time. Cranial Nerves: No cranial nerve deficit. Psychiatric: Mood and Affect: Mood is not anxious or depressed. Behavior: Behavior normal. Thought Content: Thought content normal. Judgment: Judgment normal. Review of Systems Constitutional: Negative for activity change, appetite change, fatigue and unexpected weight change. HENT: Negative for ear pain and trouble swallowing. Eyes: Negative for pain and visual disturbance. Respiratory: Positive for shortness of breath (improved). Negative for chest tightness. Cardiovascular: Negative for chest pain, palpitations and leg swelling. Gastrointestinal: Negative for abdominal pain and blood in stool. Endocrine: Negative for cold intolerance and heat intolerance. Genitourinary: Negative for dysuria, hematuria and scrotal swelling. Musculoskeletal: Positive for arthralgias. Negative for myalgias. Skin: Negative for pallor and rash. Allergic/Immunologic: Negative for immunocompromised state. Neurological: Negative for dizziness, syncope and light-headedness. Hematological: Negative for adenopathy. Does not bruise/bleed easily. Psychiatric/Behavioral: Negative for sleep disturbance. The patient is not nervous/anxious. 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 Breana Linder Diastolic dysfunction 2012 Elevated hemoglobin A1c 06/20/2018 Elevated PSA 06/08/2015 Essential hypertension Ex-smoker 12/20/2018 Started around age 17 up to 2 cigs quit around 18. External hemorrhoid 12/20/2018 Medicare annual wellness visit, subsequent 12/02/2016 Medicare part B: 04/21/2007 last done: 12/23/2019 Mixed hyperlipidemia Obesity, Class II, BMI 35-39.9 06/07/2023 Obstructive sleep apnea Rosacea PAST SURGICAL HISTORY Procedure Laterality Date COLONOSCOPY 1997 neg COLSC FLX W/REMOVAL LESION BY HOT BX FORCEPS 08/14/15 hyperplastic polyp - 10 year follow up PAST SURGICAL HISTORY OF Right 2016 ring finger Rt Fx repair Social History Tobacco Use Smoking status: Former Types: Cigarettes Quit date: 03/21/1962 Years since quittin.2 Smokeless tobacco: Never Tobacco comments: total of a dozen cigarettes Vaping Use Vaping Use: Never used Substance Use Topics Alcohol use: Yes Comment: very rare - glass of wine, several times per year Drug use: No FAMILY HISTORY Problem Relation Age of Onset Stroke Mother 92 other (hypotension) Mother Ischemic Heart Disease Father 59 [place] Cancer Father skin cancer Ischemic Heart Disease Paternal Grandfather Ischemic Heart Disease Paternal Uncle 3 uncles Colon Cancer No Family History Prostate Cancer No Family History Alzheimer's Disease No Family History ALLERGIES Allergen Reactions Seasonal Allergies Other: See Comments Testing 06/18/12 negative. Patient still bothered by allergens. grass, pollen, ragweed CURRENT MEDICATIONS: isosorbide mononitrate ER (IMDUR) 30 mg 24 hr tablet Take 0.5 tablets by mouth once daily. dilTIAZem CD (CARDIZEM CD) 240 mg 24 hr capsule Take 1 capsule by mouth once daily. atorvastatin (LIPITOR) 80 mg tablet Take 1 tablet by mouth once daily. hydroCHLOROthiazide 12.5 mg capsule Take 1 capsule by mouth once daily. losartan (COZAAR) 100 mg tablet Take 1 tablet by mouth once daily. ketoconazole (NIZORAL) 2 % shampoo apply to affected area once daily if needed aspirin, enteric coated (ASPIRIN, ENTERIC COATED) 81 mg EC tablet Take 1 tablet by mouth once daily. omega-3 fatty acids 1,000 mg cap Take 1 capsule by mouth once daily. cetirizine (ZYRTEC) 10 mg tablet Take 1 tablet by mouth once daily. ibuprofen (MOTRIN) 200 mg tablet Take 1-2 tablets by mouth every 6 hours as needed for Pain (Take with food.). artificial tear, Hypromellose, (GENTEAL MODERATE) 0.3 % Drop Use 1 Drop in both eyes as needed. James Quick DO, FAC, FAC Superintendent Laundry, [facility] Ambulatory Cardiology Superintendent Laundry, [facility] Cardiac Rehabilitation Superintendent Laundry, [facility] Cardiac Rehabilitation Superintendent Laundry, [facility] Congestive Heart Failure Clinic Superintendent Laundry, [facility] Ambulatory Cardiology Clinical Rotary Rig Engine Operator Profressor of Medicine, [facility] - [facility] Staff Pattern Finisher, Masha Garsia Department of Cardiovascular Medicine/Heart and Vascular [place], [facility] Please note: This note has been produced using speech recognition software and may contain errors related to that system including alverto, punctuation, spelling, words, gender and phrases that may be inappropriate. documented in this encounterRegency Hospital [place]01-19-2024 NoteHNO ID: [id number] Author: JAMES QUICK DO Service: ? Author Type: Physician Type: Progress Notes Filed: 06/09/2023 17:16 Note Text: HEART [facility] VASCULAR INSTITUTE SECTION OF [facility] CARDIOLOGY [facility] OUTPATIENT VISIT DATE June 09, 2023 PRIMARY CARE PHYSICIAN: Leoncio Chavez [address] [place] [address] HISTORY OF PRESENT ILLNESS: Mr. Jones is a 83 year old male. The patient returns for follow-up with history of chronic diastolic heart failure recent worsening of his dyspnea. He has an abnormal nuclear stress test previously demonstrating infarct but no ischemia. Additional history includes hypertension, hyperlipidemia and prediabetes. We have discussed consideration for invasive assessment prior. He denies chest discomfort, orthopnea, paroxysmal nocturnal dyspnea, palpitations, near-syncope or syncope. He now additionally has lower extremity cramping with exercise concerning for claudication. PLAN AND RECOMMENDATIONS: Patient continues have dyspnea which may be multifactorial but certainly is concerning for anginal equivalent. We discussed this with him in great detail and recommend proceeding with diagnostic heart catheterization. He wishes to wait for period time as he has plans in regards to a trip to [place] [facility]. The patient was warned. In the interim we will add isosorbide mononitrate 15 mg daily to his medical regimen. We will additionally perform lower extremity ankle-brachial indices. Dietary and lifestyle modification was otherwise reemphasized to facilitate risk factor reduction heart failure prevention. We will look forward to reevaluating him in a couple weeks time prior to his departure to the [facility]. Vitals: BP 132/68 Pulse 68 Ht 175.3 cm (5' 9) Wt 108.9 kg (240 lb) SpO2 98% BMI 35.44 kg/m? Physical Exam Vitals reviewed. Constitutional: General: He is not in acute distress. Appearance: He is well-developed. He is not diaphoretic. HENT: Head: Normocephalic and atraumatic. Right Ear: External ear normal. Left Ear: External ear normal. Nose: Nose normal. Eyes: General: No scleral icterus. Right eye: No discharge. Left eye: No discharge. Pupils: Pupils are equal, round, and reactive to light. Neck: Thyroid: No thyromegaly. Vascular: No JVD. Cardiovascular: Rate and Rhythm: Normal rate and regular rhythm. Heart sounds: No murmur heard. No friction rub. No gallop. Pulmonary: Effort: Pulmonary effort is normal. No respiratory distress. Breath sounds: Normal breath sounds. No wheezing or rales. Abdominal: General: Bowel sounds are normal. Palpations: Abdomen is soft. Musculoskeletal: General: Normal range of motion. Cervical back: Neck supple. Skin: General: Skin is warm and dry. Coloration: Skin is not pale. Neurological: Mental Status: He is alert and oriented to person, place, and time. Cranial Nerves: No cranial nerve deficit. Psychiatric: Mood and Affect: Mood is not anxious or depressed. Behavior: Behavior normal. Thought Content: Thought content normal. Judgment: Judgment normal. Review of Systems Constitutional: Negative for activity change, appetite change, fatigue and unexpected weight change. HENT: Negative for ear pain and trouble swallowing. Eyes: Negative for pain and visual disturbance. Respiratory: Negative for chest tightness and shortness of breath. Cardiovascular: Negative for chest pain, palpitations and leg swelling. Gastrointestinal: Negative for abdominal pain and blood in stool. Endocrine: Negative for cold intolerance and heat intolerance. Genitourinary: Negative for dysuria, hematuria and scrotal swelling. Musculoskeletal: Positive for arthralgias. Negative for myalgias. Skin: Negative for pallor and rash. Allergic/Immunologic: Negative for immunocompromised state. Neurological: Negative for dizziness, syncope and light-headedness. Hematological: Negative for adenopathy. Does not bruise/bleed easily. Psychiatric/Behavioral: Negative for sleep disturbance. The patient is not nervous/anxious. 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 Breana Linder Diastolic dysfunction 2012 Elevated hemoglobin A1c 06/20/2018 Elevated PSA 06/08/2015 Essential hypertension Ex-smoker 12/20/2018 Started around age 17 up to 2 cigs quit around 18. External hemorrhoid 12/20/2018 Medicare annual wellness visit, subsequent 12/02/2016 Medicare part B: 04/21/2007 last done: 12/23/2019 Mixed hyperlipidemia Obesity (more content not included)...[id number] Miscellaneous Notes* Telephone Encounter - Leoncio Chavez MD - 12/30/2022 1:20 PM EDT The following approved medication requests have been transmitted electronically. Requested Prescriptions Signed Prescriptions Disp Refills ketoconazole (NIZORAL) 2 % shampoo 120 mL 3 Sig: apply to affected area once daily if needed Authorizing Provider: LEONCIO CHAVEZ MD * Telephone Encounter - Sabiha Gamble Ma - 12/30/2022 9:51 AM EDT Patient last visit 11/25/22 Follow up appointment scheduled 05/26/23 Sabiha Gamble Ma * Telephone Encounter - Lilo Ochoa - 12/30/2022 8:45 AM EDT Patient has been identified by name and date of : Yes Last office visit in this department: 11/25/2022 RX INSTRUCTIONS: Patient aware RX will be sent to pharmacy. No need to notify patient. Patient phones requesting refills as follows: Requested Prescriptions Pending Prescriptions Disp Refills ketoconazole (NIZORAL) 2 % shampoo 120 mL 3 Sig: apply to affected area once daily if needed Please review and advise. Lilo Ochoa documented in this encounterRegency Hospital [place]07-10-2023 Miscellaneous Notes* Telephone Encounter - Franck Reyes LPN - 11/28/2022 11:29 AM EDT Patient notified of results and provider's instructions. Patient verbalizes understanding. Franck Reyes LPN * Telephone Encounter - Angy Luciano PA-C - 11/28/2022 11:10 AM EDT Cholesterol and hgb a1c is stable. PSA stable as well. His kidney function is just mildly decreased. But it looks like he was dehydrated. Push fluids and recheck in 2 weeks. documented in this encounterRegency Hospital [place]07-07-2023 History of Present illness Narrative* Angy Luciano PA-C - 11/25/2022 8:18 AM EDT Chief Complaint Patient presents with: 6 Month Exam HPI Yvonne Jones is a 82 year old male who presents here today for Chronic Medical Conditions.. Patient with hx of HTN, hyperlipidemia, CHF, CAD, elevated glucose, anemia, elevated PSA and those as below. Patient has struggled with weight gain over the past few months. States he got a job and it is verysedentary compared to his previous lifestyle. Otherwise doing well. Some chronic joint pains. Last 4 Encounter Wt Readings: Date: Wt: 11/25/2022 108.9 kg (240 lb) 09/02/2022 106.6 kg (235 lb) 05/27/2022 103 kg (227 lb) 11/09/2021 105.2 kg (232 lb) Past medical history, appointments, medications, allergies reviewed. Previous Medical History PAST MEDICAL HISTORY Diagnosis Date Advance directive discussed with patient 05/27/2022 Discussed 05/2022: Packets given Anemia of chronic disease 10/16/2021 Benign non-nodular prostatic hyperplasia without lower urinary tract symptoms 05/27/2015 Chronic diastolic CHF (congestive heart failure) (HCC) Chronic rhinitis 08/27/2012 Coronary artery disease due to lipid rich plaque 05/27/2015 left Cx, sees Dr. Breana Linder Diastolic dysfunction 2012 Elevated hemoglobin A1c 06/20/2018 Elevated PSA 06/08/2015 Essential hypertension Ex-smoker 12/20/2018 Started around age 17 up to 2 cigs quit around 18. External hemorrhoid 12/20/2018 Medicare annual wellness visit, subsequent 12/02/2016 Medicare part B: 04/21/2007 last done: 12/23/2019 Mixed hyperlipidemia Obstructive sleep apnea Rosacea Previous Surgical History PAST SURGICAL HISTORY Procedure Laterality Date COLONOSCOPY 1997 neg COLSC FLX W/REMOVAL LESION BY HOT BX FORCEPS 08/14/15 hyperplastic polyp - 10 year follow up PAST SURGICAL HISTORY OF Right 2016 ring finger Rt Fx repair Family History FAMILY HISTORY Problem Relation Age of Onset Stroke Mother 92 other (hypotension) Mother Ischemic Heart Disease Father 59 [place] Cancer Father skin cancer Ischemic Heart Disease Paternal Grandfather Ischemic Heart Disease Paternal Uncle 3 uncles Colon Cancer No Family History Prostate Cancer No Family History Alzheimer's Disease No Family History Patient Allergies ALLERGIES Allergen Reactions Seasonal Allergies Other: See Comments Testing 06/18/12 negative. Patient still bothered by allergens. grass, pollen, ragweed Current Medications Current Outpatient Medications on File Prior to Visit Medication Sig dilTIAZem CD (CARDIZEM CD) 240 mg 24 hr capsule Take 1 capsule by mouth once daily. atorvastatin (LIPITOR) 80 mg tablet Take 1 tablet by mouth once daily. hydroCHLOROthiazide 12.5 mg capsule Take 1 capsule by mouth once daily. losartan (COZAAR) 100 mg tablet Take 1 tablet by mouth once daily. aspirin, enteric coated (ASPIRIN, ENTERIC COATED) 81 mg EC tablet Take 1 tablet by mouth once daily. omega-3 fatty acids 1,000 mg cap Take 1 capsule by mouth once daily. cetirizine (ZYRTEC) 10 mg tablet Take 1 tablet by mouth once daily. ibuprofen (MOTRIN) 200 mg tablet Take 1-2 tablets by mouth every 6 hours as needed for Pain (Take with food.). artificial tear, Hypromellose, (GENTEAL MODERATE) 0.3 % Drop Use 1 Drop in both eyes as needed. No current facility-administered medications on file prior to visit. Social History Social History Tobacco Use Smoking status: Former Types: Cigarettes Quit date: 03/21/1962 Years since quittin.7 Smokeless tobacco: Never Tobacco comments: total of a dozen cigarettes Vaping Use Vaping Use: Never used Substance Use Topics Alcohol use: Yes Comment: very rare - glass of wine, several times per year Drug use: No Review of Symptoms REVIEW OF SYSTEMS GENERAL: No weight loss, malaise or fevers NECK: Negative for lumps, goiter, pain and significant neck swelling RESPIRATORY: Negative for cough, hemoptysis, wheezing, COPD, dyspnea or shortness of breath CARDIOVASCULAR: Negative for chest pain, leg swelling, CHF or palpitations NEURO: No history of headaches, syncope, paralysis, seizures or tremors EXAM: BP 136/60 (BP Site: Right Arm, BP Position: Sitting, BP Cuff Size: Large Adult) Pulse 68 Temp 36.3 C (97.3 F) Resp 18 Wt 108.9 kg (240 lb) BMI 35.44 kg/m General Appearance: Well appearing, alert, in no acute distress, well-hydrated, well nourished.. Neck: Supple, no adenopathy; thyroid symmetric, normal size, no bruits. Lungs: Lungs clear to auscultation. No wheezing, rhonchi, rales.. Heart: RRR without murmur, gallop, or rubs. No ectopy. Extremities: No deformities, edema, skin discoloration, clubbing or cyanosis. Good capillary refill. . Peripheral Pulses: Normal. Health Maintenance List DTAP,TDAP,TD(1 - Tdap) Never done SHINGRIX VACCINE(1 of 2) Never done INFLUENZA(1) due on 01/20/2023 LDL CHOLESTEROL due on 05/27/2023 DIABETES SCREEN due on 05/27/2025 ADVANCE DIRECTIVE DISCUSSION Completed DEPRESSION ASSESSMENT Completed COVID-19 VACCINE Completed PNEUMOCOCCAL: 65+ Completed Data reviewed ASSESSMENT/PLAN: 1. Essential hypertension - ICD9: 401.9, ICD10: I10 (primary diagnosis) - Controlled - Continue current medications - Recommend home blood pressure monitoring, to bring results to next visit - Encouraged sodium restriction, DASH or Mediterranean diet - Recommend regular aerobic exercise - BASIC METABOLIC PNL 2. Mixed hyperlipidemia - ICD9: 272.2, ICD10: E78.2 - Control undetermined, due for labs - Continue current medications - Counseled on healthy diet and regular exercise 3. Elevated hemoglobin A1c - ICD9: 790.29, ICD10: R73.09 Check labs - BASIC METABOLIC PNL - HGB A1C 4. Chronic diastolic CHF (congestive heart failure) (HCC) - ICD9: 428.32, 428.0, ICD10: I50.32 Cont with cardio 5. Coronary artery disease due to lipid rich plaque - ICD9: 414.00, 414.3, ICD10: I25.10, I25.83 Cont with cardio - LIPID PANEL, NONFASTING - BASIC METABOLIC PNL 6. Obstructive sleep apnea - ICD9: 327.23, ICD10: G47.33 Patient didn't tolerate treatment 7. Elevated PSA - ICD9: 790.93, ICD10: R97.20 recheck - PSA FREE 8. Weight gain - ICD9: 783.1, ICD10: R63.5 Check labs. Discussed adding in some light exercising at end of the day to help offset the change in lifestyle with new job. - TSH BLD - T4 FREE/FREE THYROX Angy Luciano PA-C documented in this encounter[facility]23 Miscellaneous Notes* Telephone Encounter - Dimas Russell MA - 05/30/2022 9:08 AM EST Patient notified and voiced understanding. Dimas Russell MA * Telephone Encounter - Dimas Russell MA - 05/28/2022 12:05 PM EST Left message for patient to contact office. Dimas Russell MA * Telephone Encounter - Leoncio Chavez MD - 05/28/2022 11:47 AM EST Let patient know UA, CBC, lipid panel, electrolytes, liver functions and kidney functions were all ok. A1c better at 5.7%, cont to work on low sugar diet. Percent Free PSA is still good at 31%. documented in this encounterReg[facility]23 History of Present illness Narrative* Leoncio Chavez MD - 05/27/2022 8:00 AM EST Medicare Yearly Visit Medical B eligibilty date 04/21/2007 Date of last exam 03/20/2021 PAST MEDICAL HISTORY PAST MEDICAL HISTORY Diagnosis Date Allergic rhinitis CAD (coronary artery disease) left Cx Dandruff Diastolic dysfunction 2012 HTN (hypertension) Hyperlipidemia Obstructive sleep apnea Rosacea Snoring PAST SURGICAL HISTORY PAST SURGICAL HISTORY Procedure Laterality Date COLONOSCOPY 1997 neg COLONS W/REM POLYP HT BX 08/14/15 hyperplastic polyp - 10 year follow up Seasonal Allergies Medications reviewed: Yes FAMILY HISTORY FAMILY HISTORY Problem Relation Age of Onset Ischemic Heart Disease Father 59 [place] Stroke Mother 92 Cancer Father skin cancer hypotension [Other] [OTHER] Mother Ischemic Heart Disease Paternal Uncle 3 uncles Ischemic Heart Disease Paternal Grandfather SOCIAL HISTORY: SOCIAL HISTORY Social History Marital status: Spouse name: Years of education: Number of children: 3 Occupational History Occupation Employer Comment [employer] Social History Main Topics Smoking status: Former Smoker Packs/day: 0.00 Years: 0.00 Quit date: 03/21/1962 Smokeless tobacco: Never Used Comment: total of a dozen cigarettes Alcohol use: Yes Comment: very rare - glass of wine Drug use: No Sexual activity: Yes Partners with: Female Social History Narrative Enjoys rennovating 89 yo house, bowling Lives with 2nd since ~ 2002 3 children from 1st ; 2nd -2 step children Yvonne not working out regularly. He watches his diet for sodium, low fat and low cholesterol most of the time. List of current specialists seen: Dr. Tobar and Dr. Gonzalez. End of Live Planning discussed including patients advanced directive wishes: Yes I am willing to follow Yvonne's advanced directives. Depression screen Depression Screening 12/02/2016 12/13/2017 12/20/2018 05/27/2022 PHQ-2 Score 2 0 0 4 Depression screening tool completed and reviewed. Based on score and interview, patient is at risk for depression. Screening tool discussed with patient, and I recommended no further intervention at this time. Patient was not interested in any forms of Tx at this time. Functional Ability/Safety Screen 1. Was the patient's timed Up and Go test unsteady or longer than 30 seconds? No 2. Does the patient need help with the phone, transportation, shopping,preparing meals, housework, laundry, medications or managing money? No 3. Does your home have rugs in the hallway, lack of grab bars in the bathroom, lack of handrails onthe stairs or have poor lighting? No Hearing Evaluation: normal PHYSICAL EXAM BP 142/72 (BP Site: Left Arm, BP Position: Sitting, BP Cuff Size: Large Adult) Pulse 76 Resp 16 Ht 175.3 cm (5' 9) Wt 103 kg (227 lb) BMI 33.52 kg/m Alert and oriented X 3: YES Body mass index is 33.52 kg/m . Seeing optho See below ASSESSMENT/PLAN: 82 year old male The following prevention plan was discussed during the office visit and provided to the patient: See below Leoncio Chavez MD Chief Complaint Patient presents with: Medicare Wellness Exam HPI Yvonne Jones is a 82 year old male who presents here today for Medicare Annual Visit. Patient with hx of CHF, CAD, HLP, HTN, LYDIA, elevate a1c, BPH, and those as below. Patient has been doing ok. Under more stress in the past year. Though his is able to do thingsshe has become more unwilling to and asks him to do most of it. Denies feeling depressed. Just frustrated at times. Past medical history, appointments, medications, allergies reviewed. Previous Medical History PAST MEDICAL HISTORY Diagnosis Date Anemia of chronic disease 10/16/2021 Benign non-nodular prostatic hyperplasia without lower urinary tract symptoms 05/27/2015 Chronic diastolic CHF (congestive heart failure) (HCC) Chronic rhinitis 08/27/2012 Coronary artery disease due to lipid rich plaque 05/27/2015 left Cx, sees Dr. Breana Linder Diastolic dysfunction 2012 Elevated hemoglobin A1c 06/20/2018 Elevated PSA 06/08/2015 Essential hypertension Ex-smoker 12/20/2018 Started around age 17 up to 2 cigs quit around 18. External hemorrhoid 12/20/2018 Medicare annual wellness visit, subsequent 12/02/2016 Medicare part B: 04/21/2007 last done: 12/23/2019 Mixed hyperlipidemia Obstructive sleep apnea Rosacea Previous Surgical History PAST SURGICAL HISTORY Procedure Laterality Date COLONOSCOPY 1997 neg COLSC FLX W/REMOVAL LESION BY HOT BX FORCEPS 08/14/15 hyperplastic polyp - 10 year follow up PAST SURGICAL HISTORY OF Right 2016 ring finger Rt Fx repair Family History FAMILY HISTORY Problem Relation Age of Onset Stroke Mother 92 other (hypotension) Mother Ischemic Heart Disease Father 59 [place] Cancer Father skin cancer Ischemic Heart Disease Paternal Grandfather Ischemic Heart Disease Paternal Uncle 3 uncles Colon Cancer No Family History Prostate Cancer No Family History Alzheimer's Disease No Family History Patient Allergies ALLERGIES Allergen Reactions Seasonal Allergies Other: See Comments Testing 06/18/12 negative. Patient still bothered by allergens. grass, pollen, ragweed Current Medications Current Outpatient Medications on File Prior to Visit Medication Sig losartan (COZAAR) 100 mg tablet Take 1 tablet by mouth once daily. hydroCHLOROthiazide (HYDRODIURIL, ESIDRIX) 12.5 mg capsule Take 1 capsule by mouth once daily. atorvastatin (LIPITOR) 80 mg tablet Take 1 tablet by mouth once daily. dilTIAZem CD (CARDIZEM CD) 240 mg 24 hr capsule Take 1 capsule by mouth once daily. ketoconazole (NIZORAL) 2 % shampoo apply to affected area once daily if needed aspirin, enteric coated (ASPIRIN, ENTERIC COATED) 81 mg EC tablet Take 1 tablet by mouth once daily. omega-3 fatty acids 1,000 mg cap Take 1 capsule by mouth once daily. cetirizine (ZYRTEC) 10 mg tablet Take 1 tablet by mouth once daily. ibuprofen (MOTRIN) 200 mg tablet Take 1-2 tablets by mouth every 6 hours as needed for Pain (Take with food.). artificial tear, Hypromellose, (GENTEAL MODERATE) 0.3 % Drop Use 1 Drop in both eyes as needed. No current facility-administered medications on file prior to visit. Social History Social History Tobacco Use Smoking status: Former Types: Cigarettes Quit date: 03/21/1962 Years since quittin.2 Smokeless tobacco: Never Tobacco comments: total of a dozen cigarettes Vaping Use Vaping Use: Never used Substance Use Topics Alcohol use: Yes Comment: very rare - glass of wine, several times per year Drug use: No Review of Symptoms REVIEW OF SYSTEMS GENERAL: No significant weight loss, malaise or fevers HEENT: Negative for frequent or significant headaches, No changes in hearing or vision, no nose bleeds or other nasal problems NECK: Negative for lumps, goiter, pain and significant neck swelling RESPIRATORY: Negative for cough, hemoptysis, increased wheezing, COPD, dyspnea or shortness of breath from base line. CARDIOVASCULAR: Negative for chest pain, leg swelling, hypertension, CHF or palpitations GI: No nausea, vomiting, or diarrhea, No heartburn or reflux symptoms, and no blood : No history of dysuria, blood MUSCULOSKELETAL: has been getting increasing pain in the right hip and with this cramping in the legs that is worse later in the day and more so on the right. SKIN: Negative for lesions, rash, and itching PSYCH: see HPI HEMATOLOGY/LYMPHOLOGY: Negative for prolonged bleeding, bruising easily or swollen nodes ENDOCRINE: Negative for cold or heat intolerance, polyuria, polydipsia and goiter NEURO: No history of headaches, syncope, paralysis, seizures or tremors EXAM: BP 142/72 (BP Site: Left Arm, BP Position: Sitting, BP Cuff Size: Large Adult) Pulse 76 Resp 16 Ht 175.3 cm (5' 9) Wt 103 kg (227 lb) BMI 33.52 kg/m BP 128/68 Pulse 76 Resp 16 Ht 175.3 cm (5' 9) Wt 103 kg (227 lb) BMI 33.52 kg/m Last 4 Encounter Wt Readings: Date: Wt: 05/27/2022 103 kg (227 lb) 11/09/2021 105.2 kg (232 lb) 10/15/2021 105.2 kg (232 lb) 03/20/2021 99.3 kg (219 lb) General Appearance: Well appearing, alert, in no acute distress, well-hydrated, well nourished. andObese. Skin: Skin color, texture, turgor normal, no suspicious rashes or lesions. Head: Normocephalic, no masses, lesions, tenderness or abnormalities. Eyes: Anicteric sclera. Pupils are equally round and reactive to light. Extraocular movements are intact. . Ears: External ears normal, canals blocked with wax. Neck: Supple, no adenopathy; thyroid symmetric, normal size, no bruits. Lungs: Lungs clear to auscultation. No wheezing, rhonchi, rales.. Heart: RRR without murmur, gallop, or rubs. No ectopy. Abdomen: Normal abdominal exam, Abdomen soft, non-tender. Bowel sounds normal. No masses, organomegaly. Extremities: No deformities, edema, skin discoloration. Good capillary refill. . Musculoskeletal: Muscular strength intact, No joint swelling. Peripheral Pulses: Normal. Neurologic: Gait normal. Reflexes normal and symmetric. Sensation to light touch and crainal nerves2-12 intact.. Genitalia: Normal, Penis normal. No urethral discharge. Scrotum normal to palpation. No hernia.. Health Maintenance List DTAP,TDAP,TD(1 - Tdap) Never done SHINGRIX VACCINE(1 of 2) Never done COVID-19 VACCINE(4 - Booster for Moderna series) due on 06/17/2021 INFLUENZA(1) due on 01/20/2022 ADVANCE DIRECTIVE DISCUSSION Never done DEPRESSION ASSESSMENT Never done LDL CHOLESTEROL due on 10/15/2022 DIABETES SCREEN due on 10/15/2024 PNEUMOCOCCAL: 65+ Completed Data reviewed Component Latest Ref Rng & Units 10/15/2021 WBC 3.70 - 11.00 k/uL 5.41 RBC 4.20 - 6.00 m/uL 3.93 (L) Hemoglobin 13.0 - 17.0 g/dL 12.0 (L) Hematocrit 39.0 - 51.0 % 36.5 (L) MCV 80.0 - 100.0 fL 92.9 MCH 26.0 - 34.0 pg 30.5 MCHC 30.5 - 36.0 g/dL 32.9 RDW-CV 11.5 - 15.0 % 14.0 Platelet Count 150 - 400 k/uL 223 MPV 9.0 - 12.7 fL 11.3 Neut% % 42.7 Abs Neut (ANC) 1.45 - 7.50 k/uL 2.31 Lymph% % 42.9 Abs Lymph 1.00 - 4.00 k/uL 2.32 Tr[place]dale% % 7.2 Abs [place] <0.87 k/uL 0.39 Eosin% % 5.9 Abs Eosin <0.46 k/uL 0.32 Baso% % 1.1 Abs Baso <0.11 k/uL 0.06 Immature Gran % % 0.2 IMMATURE GRANS (ABS) <0.10 k/uL <0.03 NRBC /100 WBC 0.0 Absolute nRBC <0.01 k/uL <0.01 DTYPE Auto Total Cholesterol, Nonfasting <200 mg/dL 138 Triglycerides, Nonfasting <150 mg/dL 109 HDL Cholesterol, Nonfasting >39 mg/dL 31 (L) LDL Cholesterol, Nonfasting <100 mg/dL 85 Non HDL Cholesterol, Nonfasting <130 mg/dL 107 VLDL Cholesterol, Nonfasting <30 mg/dL 22 Total Chol/HDL Ratio, Nonfasting <5.10 mg/dL 4.45 LDL/HDL Ratio, Nonfasting <2.54 mg/dL 2.74 (H) Iron 41 - 186 ug/dL 92 TIBC 232 - 386 ug/dL 258 Transferrin Saturation 15 - 57 % 36 Hemoglobin A1C 4.3 - 5.6 % 5.9 (H) Estimated Average Glucose mg/dL 123 PSA <2.60 ng/mL 3.34 (H) PSA, Percent Free % 34 Vitamin B12 232-1,245 pg/mL 363 Folate >4.7 ng/mL >20.0 Ferritin 30.3 - 565.7 ng/mL 131.0 A/P ASSESSMENT/PLAN: 1. Medicare annual wellness visit, subsequent - ICD9: V70.0, ICD10: Z00.00 (primary diagnosis) - Counseled on healthy diet and regular exercise - Discussed need for and benefit of weight loss. BMI 33.52 kg/(m^2) - Patient was counseled [id number] by myself (the billing provider) for the following immunizations and vaccine components, including side effects: COVID-19 and Influenza. Patient consents for immunization and understands risks and benefits. A VIS sheet on each immunization was given to the patient. - Follow up for annual exam in one year 2. Essential hypertension - ICD9: 401.9, ICD10: I10 - good control - Continue current medication(s) - Recommended regular aerobic exercise. - Recommend home blood pressure monitoring, to bring results in on next visit - Goal of BP <130/80 Check - COMP METABOLIC PANEL - URINALYSIS, WITH MICROSCOPIC - LIPID PANEL, NONFASTING 3. Mixed hyperlipidemia - ICD9: 272.2, ICD10: E78.2 - to be determined upon return of lab results - Encouraged following a low fat, low cholesterol diet. - Discussed the benefits of regular aerobic exercise and weight loss. - Encouraged following a low carbohydrate, healthy oil intake diet. - Continue current therapy. check - COMP METABOLIC PANEL - URINALYSIS, WITH MICROSCOPIC - LIPID PANEL, NONFASTING 4. Elevated hemoglobin A1c - ICD9: 790.29, ICD10: R73.09 - patient working on life style for control. Check - HGB A1C 5. Coronary artery disease due to lipid rich plaque - ICD9: 414.00, 414.3, ICD10: I25.10, I25.83 - clinically stable no changes and cont f/u with cardio - LIPID PANEL, NONFASTING 6. Chronic diastolic CHF (congestive heart failure) (HCC) - ICD9: 428.32, 428.0, ICD10: I50.32 - as per #5 - COMP METABOLIC PANEL 7. Anemia of chronic disease - ICD9: 285.29, ICD10: D63.8 - has been stable Check - CBC + DIFF 8. Elevated PSA - ICD9: 790.93, ICD10: R97.20 Check - PSA FREE 9. Benign non-nodular prostatic hyperplasia without lower urinary tract symptoms - ICD9: 600.90, ICD10: N40.0 - no active issues. 10. Encounter for immunization - ICD9: V03.89, ICD10: Z23 - [employer] COVID-19 BIVALENT BOOSTER VACCINE, AGE 12+ YR: given - INFLUENZA SEASONAL QUADRIVALENT HIGH DOSE AGE 65+: given 11. Advance directive discussed with patient - ICD9: V65.49, ICD10: Z71.89 - packets provided 12. Bilateral impacted cerumen - ICD9: 380.4, ICD10: H61.23 Discussed irrigation with wam water. Verbal consent provided. Both ears were irrigated with warm water for the removal of wax per nursing. Patient tolerated well. - AMBULATORY EAR LAVAGE/IRRIGATION F/u 6 months routine I spent a total of 40 minutes on the date of the service which included preparing to see the patient, [id number] patient care, completing clinical documentation, performing a medically appropriate examination, counseling and educating the patient/family/caregiver and ordering medications, tests, or procedures. Leoncio Chavez MD Ambulatory Ear Lavage Pre-treatment: Warm water Treatment: Both ears Equipment and Irrigation solution and Volume used: Single use syringe with single use irrigation tip Return flow appearance: Clear Patient tolerated procedure: yes Post-treatment: Post Irrigation Post-treatment: Ear Canal/Tympanic membrane assessed by VISHAL Chavez documented in this encounterReg[facility]06-30-2022 Miscellaneous Notes* Telephone Encounter - Nyasia Lynne RN - 11/18/2021 4:41 PM EDT JULISSA 11/09/21 w/ Dr. Quick CBC/Lipid 09/2021 CMP 02/2021 documented in this encounterRegency [facility]06-21-2022 History of Present illness Narrative* James Quick DO - 11/09/2021 8:45 AM EDT Images from the original note were not included. [facility] SE[facility] OUTPATIENT VISIT DATE November 09, 2021 PRIMARY CARE PHYSICIAN: Leoncio Chavez [address] [place] [address] HISTORY OF PRESENT ILLNESS: Mr. Jones is a 81 year old male. The patient returns for follow-up second history of chronic diastolic heart failure with abnormal nuclear stress imaging in the past demonstrating infarct but not ischemia. Additional history includes hypertension, hyperlipidemia and prediabetes. He denies chest discomfort, dyspnea, orthopnea, paroxysmal nocturnal dyspnea, palpitations, near-syncope or syncope. He continues to work upwards of 40 hours/week. 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 He has a house in the [facility] which she likes to visit at different times a year particularly in the spring. He and his are working on improving it. PLAN AND RECOMMENDATIONS: The patient remained stable without symptoms that would suggest angina or cardiac decompensation. Heart rate, blood pressure and recent cholesterol profile are favorable. We have therefore made no additions or changes. Dietary and lifestyle modification was reemphasized to facilitate risk factor reduction. We will look forward to reevaluating him next spring. Vitals: BP 122/60 Pulse 63 Ht 175.3 cm (5' 9) Wt 105.2 kg (232 lb) SpO2 98% BMI 34.26 kg/m Physical Exam Vitals reviewed. Constitutional: General: He is not in acute distress. Appearance: He is well-developed. He is not diaphoretic. HENT: Head: Normocephalic and atraumatic. Right Ear: External ear normal. Left Ear: External ear normal. Nose: Nose normal. Eyes: General: No scleral icterus. Right eye: No discharge. Left eye: No discharge. Pupils: Pupils are equal, round, and reactive to light. Neck: Thyroid: No thyromegaly. Vascular: No JVD. Cardiovascular: Rate and Rhythm: Normal rate and regular rhythm. Heart sounds: No murmur heard. No friction rub. No gallop. Pulmonary: Effort: Pulmonary effort is normal. No respiratory distress. Breath sounds: Normal breath sounds. No wheezing or rales. Abdominal: General: Bowel sounds are normal. Palpations: Abdomen is soft. Musculoskeletal: General: Normal range of motion. Cervical back: Neck supple. Skin: General: Skin is warm and dry. Coloration: Skin is not pale. Neurological: Mental Status: He is alert and oriented to person, place, and time. Cranial Nerves: No cranial nerve deficit. Psychiatric: Mood and Affect: Mood is not anxious or depressed. Behavior: Behavior normal. Thought Content: Thought content normal. Judgment: Judgment normal. Review of Systems Constitutional: Negative for activity change, appetite change, fatigue and unexpected weight change. HENT: Negative for ear pain and trouble swallowing. Eyes: Negative for pain and visual disturbance. Respiratory: Negative for chest tightness and shortness of breath. Cardiovascular: Negative for chest pain, palpitations and leg swelling. Gastrointestinal: Negative for abdominal pain and blood in stool. Endocrine: Negative for cold intolerance and heat intolerance. Genitourinary: Negative for dysuria, hematuria and scrotal swelling. Musculoskeletal: Positive for arthralgias. Negative for myalgias. Skin: Negative for pallor and rash. Allergic/Immunologic: Negative for immunocompromised state. Neurological: Negative for dizziness, syncope and light-headedness. Hematological: Negative for adenopathy. Does not bruise/bleed easily. Psychiatric/Behavioral: Negative for sleep disturbance. The patient is not nervous/anxious. PAST MEDICAL HISTORY Diagnosis Date Anemia of chronic disease 10/16/2021 Benign non-nodular prostatic hyperplasia without lower urinary tract symptoms 05/27/2015 Chronic diastolic CHF (congestive heart failure) (HCC) Chronic rhinitis 08/27/2012 Coronary artery disease due to lipid rich plaque 05/27/2015 left Cx, sees Dr. Breana Linder Diastolic dysfunction 2012 Elevated hemoglobin A1c 06/20/2018 Elevated PSA 06/08/2015 Essential hypertension Ex-smoker 12/20/2018 Started around age 17 up to 2 cigs quit around 18. External hemorrhoid 12/20/2018 Medicare annual wellness visit, subsequent 12/02/2016 Medicare part B: 04/21/2007 last done: 12/23/2019 Mixed hyperlipidemia Obstructive sleep apnea Rosacea PAST SURGICAL HISTORY Procedure Laterality Date COLONOSCOPY 1997 neg COLSC FLX W/REMOVAL LESION BY HOT BX FORCEPS 08/14/15 hyperplastic polyp - 10 year follow up PAST SURGICAL HISTORY OF Right 2016 ring finger Rt Fx repair Social History Tobacco Use Smoking status: Former Smoker Quit date: 03/21/1962 Years since quittin.6 Smokeless tobacco: Never Used Tobacco comment: total of a dozen cigarettes Vaping Use Vaping Use: Never used Substance Use Topics Alcohol use: Yes Comment: very rare - glass of wine, several times per year Drug use: No FAMILY HISTORY Problem Relation Age of Onset Stroke Mother 92 other (hypotension) Mother Ischemic Heart Disease Father 59 [place] Cancer Father skin cancer Ischemic Heart Disease Paternal Grandfather Ischemic Heart Disease Paternal Uncle 3 uncles Colon Cancer No Family History Prostate Cancer No Family History Alzheimer's Disease No Family History ALLERGIES Allergen Reactions Seasonal Allergies Other: See Comments Testing 06/18/12 negative. Patient still bothered by allergens. grass, pollen, ragweed CURRENT MEDICATIONS: ketoconazole (NIZORAL) 2 % shampoo apply to affected area once daily if needed atorvastatin (LIPITOR) 80 mg tablet Take 1 tablet by mouth once daily. dilTIAZem CD (CARDIZEM CD) 240 mg 24 hr capsule Take 1 capsule by mouth once daily. hydroCHLOROthiazide 12.5 mg capsule Take 1 capsule by mouth once daily. losartan (COZAAR) 100 mg tablet Take 1 tablet by mouth once daily. aspirin, enteric coated (ASPIRIN, ENTERIC COATED) 81 mg EC tablet Take 1 tablet by mouth once daily. omega-3 fatty acids 1,000 mg cap Take 1 capsule by mouth once daily. cetirizine (ZYRTEC) 10 mg tablet Take 1 tablet by mouth once daily. ibuprofen (MOTRIN) 200 mg tablet Take 1-2 tablets by mouth every 6 hours as needed for Pain (Take with food.). artificial tear, Hypromellose, (GENTEAL MODERATE) 0.3 % Drop Use 1 Drop in both eyes as needed. EKG performed today demonstrates sinus bradycardia at 59 bpm with a borderline first-degree AV block but is otherwise normal. James Quick DO, FACC, FACOI Clinical and Preventive Cardiology Department of Medicine and Division of Cardiology, [facility] Superintendent Laundryservice loss control consultant [facility] Superintendent Laundry of [facility] Cardiology Office Superintendent Laundry [facility] Staff Pattern Finisher, Masha Garsia Department of Cardiovascular Medicine/Heart and Vascular [place], [facility] Clinical Rotary Rig Engine Operator Profressor of Medicine, [facility] Please note: This note has been produced using speech recognition software and may contain errors related to that system including alverto, punctuation, spelling, words, gender and phrases that may be inappropriate. documented in this encounterRegency Hospital [facility]05-28-2022 Miscellaneous Notes* Telephone Encounter - Sabiha Gamble Ma - 10/16/2021 12:41 PM EDT Patient was notified Sabiha Gamble Ma * Telephone Encounter - Leoncio Chavez MD - 10/16/2021 12:25 PM EDT Let patient know PSA level was slightly lower. His Free part was still very good. Iron studies, B12 and folate were all ok. Blood count still shows anemia but suspect this is related to chronic diseases based on the levels. We will keep an eye on this. I placed an order to repeat his CBC in a month. Lipid panel was ok and blood sugar test is stable but still slightly elevated. Cont reduced sugar/starch in diet. documented in this encounter[address]-2020 History of Past illness Narrative* Problem Noted Date Resolved Date Mixed hyperlipidemia 12/23/2019 Allergic rhinitis 08/27/2012 documented as of this encounter (statuses as of 10/16/2021) [address]2020 History of Past illness Narrative* Problem Noted Date Resolved Date Mixed hyperlipidemia 12/23/2019 Allergic rhinitis 08/27/2012 documented as of this encounter (statuses as of 11/09/2021) [address]2020 History of Past illness Narrative* Problem Noted Date Resolved Date Mixed hyperlipidemia 12/23/2019 Allergic rhinitis 08/27/2012 documented as of this encounter (statuses as of 11/19/2021) [address] History of Past illness Narrative* Problem Noted Date Resolved Date Mixed hyperlipidemia 12/23/2019 Allergic rhinitis 08/27/2012 documented as of this encounter (statuses as of 05/28/2022) [address] History of Past illness Narrative* Problem Noted Date Resolved Date Mixed hyperlipidemia 12/23/2019 Allergic rhinitis 08/27/2012 documented as of this encounter (statuses as of 05/30/2022) [address] History of Past illness Narrative* Problem Noted Date Resolved Date Mixed hyperlipidemia 12/23/2019 Allergic rhinitis 08/27/2012 documented as of this encounter (statuses as of 11/25/2022) [address] History of Past illness Narrative* Problem Noted Date Diagnosed Date Resolved Date Mixed hyperlipidemia 020 Allergic rhinitis 08/27/2012 documented as of this encounter (statuses as of 11/28/2022) [address] History of Past illness Narrative* Problem Noted Date Diagnosed Date Resolved Date Mixed hyperlipidemia 020 Allergic rhinitis 08/27/2012 documented as of this encounter (statuses as of 12/31/2022) [address] History of Past illness Narrative* Problem Noted Date Diagnosed Date Resolved Date Mixed hyperlipidemia 020 Allergic rhinitis 08/27/2012 documented as of this encounter (statuses as of 06/23/2023) [place] [address]-03-2020 History of Past illness Narrative* Problem Noted Date Diagnosed Date Resolved Date Mixed hyperlipidemia 020 Allergic rhinitis 08/27/2012 documented as of this encounter (statuses as of 08/31/2023) [facility]08-03-2020 History of Past illness Narrative* Problem Noted Date Diagnosed Date Resolved Date Mixed hyperlipidemia 020 Allergic rhinitis 08/27/2012 documented as of this encounter (statuses as of 09/01/2023) [facility] [place] [facility] Diagnosis Anemia of chronic disease Anemia of other chronic disease [facility] [place] [facility] Diagnosis Chronic diastolic CHF (congestive heart failure) (HCC)- Primary Chronic diastolic heart failure Abnormal nuclear stress test Other nonspecific abnormal cardiovascular system function study Essential hypertension Unspecified essential hypertension Mixed hyperlipidemia [facility] [place] [facility] Diagnosis Chronic diastolic CHF (congestive heart failure) (HCC)- Primary Chronic diastolic heart failure Mixed hyperlipidemia [facility] [place] [facility]* Diagnosis Medicare annual wellness visit, subsequent- Primary Routine general medical examination at a [facility] facility Essential hypertension Unspecified essential hypertension Mixed hyperlipidemia Elevated hemoglobin A1c Other abnormal blood chemistry Coronary artery disease due to lipid rich plaque Chronic diastolic CHF (congestive heart failure) (HCC) Chronic diastolic heart failure Anemia of chronic disease Anemia of other chronic disease Elevated PSA Elevated prostate specific antigen (PSA) Benign non-nodular prostatic hyperplasia without lower urinary tract symptoms Encounter for immunization Need for other specified prophylactic vaccination against single bacterial disease Advance directive discussed with patient Other specified counseling Bilateral impacted cerumen Impacted cerumen [facility] [place] [facility] Diagnosis Essential hypertension- Primary Unspecified essential hypertension Mixed hyperlipidemia Elevated hemoglobin A1c Other abnormal blood chemistry Chronic diastolic CHF (congestive heart failure) (HCC) Chronic diastolic heart failure Coronary artery disease due to lipid rich plaque Obstructive sleep apnea Obstructive sleep apnea (adult) (pediatric) Elevated PSA Elevated prostate specific antigen (PSA) Weight gain Abnormal weight gain [facility] [place] [facility]* Diagnosis Renal insufficiency- Primary Unspecified disorder of kidney and ureter [facility] Diagnosis Chronic diastolic CHF (congestive heart failure) (HCC)- Primary Chronic diastolic heart failure Coronary artery disease due to lipid rich plaque Essential hypertension Unspecified essential hypertension Mixed hyperlipidemia Decreased pulses in feet Other symptoms involving cardiovascular system [facility] Diagnosis Chronic diastolic CHF (congestive heart failure) (HCC)- Primary Chronic diastolic heart failure Coronary artery disease due to lipid rich plaque Essential hypertension Unspecified essential hypertension Mixed hyperlipidemia Obstructive sleep apnea Obstructive sleep apnea (adult) (pediatric) [facility] Essential hypertension- Primary Unspecified essential hypertension Screening for depression Encounter for screening examination for other mental health and behavioral disorders Chronic diastolic CHF (congestive heart failure) (HCC) Chronic diastolic heart failure Coronary artery disease due to lipid rich plaque Mixed hyperlipidemia Obesity, Class II, BMI 35-39.9 Obesity, unspecified Obstructive sleep apnea Obstructive sleep apnea (adult) (pediatric) Benign non-nodular prostatic hyperplasia without lower urinary tract symptoms [facility] [place] [facility] Diagnosis Blood creatinine increased compared with prior measurement- Primary [facility] Diagnosis Chronic diastolic CHF (congestive heart failure) (HCC)- Primary Chronic diastolic heart failure Essential hypertension Unspecified essential hypertension Mixed hyperlipidemia Abnormal nuclear stress test Other nonspecific abnormal cardiovascular system function study Prediabetes Other abnormal glucose Abnormal ankle brachial index (DIVYA) [facility] Diagnosis Essential hypertension- Primary Unspecified essential hypertension Coronary artery disease due to lipid rich plaque Elevated hemoglobin A1c Other abnormal blood chemistry Mixed hyperlipidemia Anemia of chronic disease Anemia of other chronic disease Medication management Encounter for long-term (current) use of other medications Elevated PSA Elevated prostate specific antigen (PSA) [facility] Diagnosis Medicare annual wellness visit, subsequent- Primary Routine general medical examination at a health care facility Mixed hyperlipidemia Essential hypertension Unspecified essential hypertension Elevated hemoglobin A1c Other abnormal blood chemistry Coronary artery disease due to lipid rich plaque Chronic diastolic CHF (congestive heart failure) (HCC) Chronic diastolic heart failure Anemia of chronic disease Anemia of other chronic disease Obesity, Class II, BMI 35-39.9 Obesity, unspecified Obstructive sleep apnea Obstructive sleep apnea (adult) (pediatric) Benign non-nodular prostatic hyperplasia without lower urinary tract symptoms Ingrown nail of second toe of left foot Advance directive discussed with patient Other specified counseling Encounter for immunization Need for other specified prophylactic vaccination against single bacterial disease Elevated PSA Elevated prostate specific antigen (PSA) [facility] Diagnosis Hypertension, essential- Primary Unspecified essential hypertension [facility]* Diagnosis Irritant contact dermatitis due to plants, except food Contact dermatitis and other eczema due to plants (except food) [facility] Outpatient Procedure (Routine) - Closed Specialty Diagnoses / Procedures Referred By Jimmie pedraza [facility] Diagnoses Chronic diastolic CHF (congestive heart failure) (HCC) Abnormal nuclear stress test Essential hypertension Mixed hyperlipidemia Procedures ECG COMPLETE ECG ROUTINE ECG W/LEAST 12 LDS W/I&R James Quick DO [address] [place] [address] [facility] [address] [place] [address] Referral ID Status Reason Start Date Expiration Date V isits Requested Visits Authorized [id number] Closed Auto-Generate d Referral 11/09/2021 11/09/2022 1 1 [facility] Summary Purpose Family History No Family History Records FoundNo Family History Records FoundNo Family History Records Found Advance Directives No Advanced Directives Records FoundDocuments on File Type Date Recorded 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 Expl 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 Advance Directive(s) 08/14/2015 10:05 AM Documents on File Type Date Recorded 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 Expl 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 Advance Directive(s) 08/14/2015 10:05 AM Additional Source Comments (unrecognized sect ion and content) No Status Records FoundNo Status Records FoundNo Status Records Found INFORMATION SOURCE (unrecogn ized section and content) DATE CREATED AUTHOR 10/06/2019 [facility] DATE CREATED AUTHOR AUTHOR'S ORGANIZ ATION 03/16/2024 [facility] DATE CREATED AUTHOR AUTHOR'S ORGANIZ ATION 10/29/2024 [facility] Source Comments (unrecognize d section and content) In the event this informatio n is protected by the Federal Confidentiality of Alcohol and Drug Abuse Patient Records regulations: The Federal rules restrict any use of the information to criminally investigate or prosecute any alcohol or drug abuse patient.[facility] the event this information is protected by the Federal Confidentiality of Alcohol and Drug Abuse Patient Records regulations: The Federal rules restrict any use of the information to criminally investigate or prosecute any alcohol or drug abuse patient.[facility] the event this information is protected by the Federal Confidentiality of Alcohol and Drug Abuse Patient Records regulations: The Federal rules restrict any use of the information to criminally investigate or prosecute any alcohol or drug abuse patient.[facility] the event this information is protected by the Federal Confidentiality of Alcohol and Drug Abuse Patient Records regulations: The Federal rules restrict any use of the information to criminally investigate or prosecute any alcohol or drug abuse patient.[facility] the event this information is protected by the Federal Confidentiality of Alcohol and Drug Abuse Patient Records regulations: The Federal rules restrict any use of the information to criminally investigate or prosecute any alcohol or drug abuse patient.[facility] the event this information is protected by the Federal Confidentiality of Alcohol and Drug Abuse Patient Records regulations: The Federal rules restrict any use of the information to criminally investigate or prosecute any alcohol or drug abuse patient.[facility] the event this information is protected by the Federal Confidentiality of Alcohol and Drug Abuse Patient Records regulations: The Federal rules restrict any use of the information to criminally investigate or prosecute any alcohol or drug abuse patient.[facility] the event this information is protected by the Federal Confidentiality of Alcohol and Drug Abuse Patient Records regulations: The Federal rules restrict any use of the information to criminally investigate or prosecute any alcohol or drug abuse patient.[facility] the event this information is protected by the Federal Confidentiality of Alcohol and Drug Abuse Patient Records regulations: The Federal rules restrict any use of the information to criminally investigate or prosecute any alcohol or drug abuse patient.[facility] the event this information is protected by the Federal Confidentiality of Alcohol and Drug Abuse Patient Records regulations: The Federal rules restrict any use of the information to criminally investigate or prosecute any alcohol or drug abuse patient.[facility] the event this information is protected by the Federal Confidentiality of Alcohol and Drug Abuse Patient Records regulations: The Federal rules restrict any use of the information to criminally investigate or prosecute any alcohol or drug abuse patient.[facility] the event this information is protected by the Federal Confidentiality of Alcohol and Drug Abuse Patient Records regulations: The Federal rules restrict any use of the information to criminally investigate or prosecute any alcohol or drug abuse patient.[facility] the event this information is protected by the Federal Confidentiality of Alcohol and Drug Abuse Patient Records regulations: The Federal rules restrict any use of the information to criminally investigate or prosecute any alcohol or drug abuse patient.[facility] the event this information is protected by the Federal Confidentiality of Alcohol and Drug Abuse Patient Records regulations: The Federal rules restrict any use of the information to criminally investigate or prosecute any alcohol or drug abuse patient.[facility] the event this information is protected by the Federal Confidentiality of Alcohol and Drug Abuse Patient Records regulations: The Federal rules restrict any use of the information to criminally investigate or prosecute any alcohol or drug abuse patient.[facility] the event this information is protected by the Federal Confidentiality of Alcohol and Drug Abuse Patient Records regulations: The Federal rules restrict any use of the information to criminally investigate or prosecute any alcohol or drug abuse patient.[facility] the event this information is protected by the Federal Confidentiality of Alcohol and Drug Abuse Patient Records regulations: The Federal rules restrict any use of the information to criminally investigate or prosecute any alcohol or drug abuse patient.[facility] the event this information is protected by the Federal Confidentiality of Alcohol and Drug Abuse Patient Records regulations: The Federal rules restrict any use of the information to criminally investigate or prosecute any alcohol or drug abuse patient.[facility] the event this information is protected by the Federal Confidentiality of Alcohol and Drug Abuse Patient Records regulations: The Federal rules restrict any use of the information to criminally investigate or prosecute any alcohol or drug abuse patient.[facility] the event this information is protected by the Federal Confidentiality of Alcohol and Drug Abuse Patient Records regulations: The Federal rules restrict any use of the information to criminally investigate or prosecute any alcohol or drug abuse patient.[facility] the event this information is protected by the Federal Confidentiality of Alcohol and Drug Abuse Patient Records regulations: The Federal rules restrict any use of the information to criminally investigate or prosecute any alcohol or drug abuse patient.[facility] the event this information is protected by the Federal Confidentiality of Alcohol and Drug Abuse Patient Records regulations: The Federal rules restrict any use of the information to criminally investigate or prosecute any alcohol or drug abuse patient.[facility] the event this information is protected by the Federal Confidentiality of Alcohol and Drug Abuse Patient Records regulations: The Federal rules restrict any use of the information to criminally investigate or prosecute any alcohol or drug abuse patient.[facility] Reason for Visit (unrecogniz ed section and content) Reason Comments Results Reason Comments Cardiology Follow Up No concerns Reason Onset Date Comments Refill Request 11/18/2021 Reason Comments Medicare Wellness Exam Reason Comments 6 Month Exam Reason Comments Refill Request Reason Comments Follow Up Reason Comments Follow Up Room 2 2 mo f/u Diego es cardiac concerns Frequent leg cramps all day, not HSLOV 06/23/23 Ynes Chronic diastolic CHF, RAMOS, CADEKG 06/24/23 Reason Comments Scheduling PVR - Ankle Brachial Index Reason Comments Follow Up Room 10 Reason Comments Orders Reason Comments Follow Up Blood pressure Reason Onset Date Comments Refill Request 07/23/2024 Reason Comments Patient Update Reason Comments Appointment Patient Update Reason Comments Rash To left arm x2 weeks Care Teams (unrecognized sec tion and content) Nurse Clinical Relationship Specialty Start Date End Date Leoncio Chavez MD [address] [place] [address] PCP - General Family Practice 05/27/15 Nurse Clinical Relationship Specialty Start Date End Date Leoncio Chavez MD [address] [place] [address] PCP - General Family Practice 05/27/15 Nurse Clinical Relationship Specialty Start Date End Date Leoncio Chavez MD [facility] [place] [address] PCP - General Family Practice 05/27/15 Nurse Clinical Relationship Specialty Start Date End Date Leoncio Chavez MD [address] [place] [address] PCP - General Family Medicine 05/27/15 Nurse Clinical Relationship Specialty Start Date End Date Leoncio Chavez MD [address] [place] [address] PCP - General Family Medicine 05/27/15 Nurse Clinical Relationship Specialty Start Date End Date Leoncio Chavez MD [address] [place] [address] PCP - General Family Medicine 05/27/15 Nurse Clinical Relationship Specialty Start Date End Date Leoncio Chavez MD [address] [place] [address] PCP - General Family Medicine 05/27/15 Nurse Clinical Relationship Specialty [place] [address] [place] [address] PCP - General Family Medicine 05/27/15 Nurse Clinical Relationship Specialty Start Date End Date Leoncio Chavez MD [address] [place] [address] PCP - General Family Medicine 05/27/15 Nurse Clinical Relationship Specialty Start Date End Date Leoncio Chavez MD [address] [place] [address] PCP - General Family Medicine 05/27/15 Nurse Clinical Relationship Specialty Start Date End Date Leoncio Chavez MD [address] [place] [address] PCP - General Family Medicine 05/27/15 Nurse Clinical Relationship Specialty Start Date End Date Leoncio Chavez MD [address] [place] [address] PCP - General Family Medicine 05/27/15 Nurse Clinical Relationship Specialty Start Date End Date Leoncio Chavez MD [address] [place] [address] PCP - General Family Medicine 05/27/15 Nurse Clinical Relationship Specialty Start Date End Date Leoncio Chavez MD [address] [place] [address] PCP - General Family Medicine 05/27/15 Nurse Clinical Relationship Specialty Start Date End Date Leoncio Chavez MD [address] [place] [address] PCP - General Family Medicine 05/27/15 Kedar De Leon APRN.SYSTEMS TRAINER [address] [place] [address] Voting Machine Repairer Family Medicine 04/27/24 Angy Luciano PA-C [address] [place] [address] [facility] 04/27/24 Nurse Clinical Relationship Specialty Start Date End Date Leoncio Chavez MD [address] [place] [address] PCP - General Family Medicine 05/27/15 Kedar De Leon APRN.SYSTEMS TRAINER [address] [place] [address] [facility] 04/27/24 Angy Luciano PA-C [address] [place] [address] [facility] 04/27/24 Nurse Clinical Relationship Specialty Start Date End Date Leoncio Chavez MD [address] [place] [address] PCP - General Family Medicine 05/27/15 Kedar De Leon APRN.SYSTEMS TRAINER [address] [place] [address] [facility] 04/27/24 Angy Luciano PA-C [address] [place] [address] [facility] 04/27/24 Nurse Clinical Relationship Specialty Start Date End Date Leoncio Chavez MD [address] [place] [address] PCP - General Family Medicine 05/27/15 Kedar De Leon APRN.SYSTEMS TRAINER [address] [place] [address] [employer]oting Machine [employer]r Family [facility] 04/27/24 Angy Luciano PA-C [address] [place] [address] [employer] Machine [employer] [facility] 04/27/24 Nurse Clinical Relationship Specialty Start Date End Date Leoncio Chavez MD [address] [place] [address] PCP - General Family Medicine 05/27/15 Kedar De Leon APRN.SYSTEMS TRAINER [address] [place] [address] [employer]oting Machine Repairer Family [facility] 04/27/24 Angy Luciano PA-C [address] [place] [address] [employer]oting Machine Repairer [facility] 04/27/24 Nurse Clinical Relationship Specialty Start Date End Date Leoncio Chavez MD [address] [place] [address] PCP - General Family Medicine 08/26/24 Kedar De Leon APRN.SYSTEMS TRAINER [facility] [place] [address] Voting Machine Repairer Family Medicine 10/21/24 Angy Luciano PA-C [address] [place] [address] [employer]oting Machine Repairer Family [facility] 10/21/24 Nurse Clinical Relationship Specialty Start Date End Date Leoncio Chavez MD [address] [place] [address] PCP - General Family Medicine 08/26/24 Kedar De Leon APRN.KIMBERLY [address] [place], [place] [id number] [facility] 10/21/24 Angy Luciano PA-C [address] [place] [address] [facility] 10/21/24 FOR RECORDS PERTAINING TO PATIENTS WHO ARE OR HAVE BEEN ENROLLED IN A CHEMICAL DEPENDENCY/SUBSTANCEABUSE PROGRAM, SOME INFORMATION MAY BE OMITTED. This clinical summary was aggregated from multiple sources. Caution should be exercised in using it in the provision of clinical care. This summary normalizes information from multiple sources, and as a consequence, information in this document may materially change the coding, format and clinical context of patient data. In addition, data may be omitted in some cases. CLINICAL DECISIONS SHOULD BE BASED ON THE PRIMARY CLINICAL RECORDS. [facility]. provides no warranty or guarantee of the accuracy or completeness of information in this document.
[2024-11-03 11:07] LABS: ALB/GLOB Ratio 1.3 RATIO (0.9-2.4); AST(SGOT) 20 U/L (<=37); Alanine Aminotransfer ALT/SGPT 17 U/L (<=46); Alkaline Phosphatase 144 U/L (40-129); Anion Gap 13 (5-15); BUN 29 mg/dL (4-19); BUN/Creat Ratio 17.4 RATIO (10-20); Calcium,Total 8.9 mg/dL (7.6-11.0); Carbon Dioxide 22.8 mmol/L (21.0-32.0); Chloride 101 mmol/L (98-108); Creatinine, Serum 1.68 mg/dL (0.70-1.20); EST Glomerular Filtration Rate 40 (>60); Globulin 3.2 g/dL (2.2-4.2); Glucose 98 mg/dL (70-99); Potassium 3.4 mmol/L (3.3-5.1); Protein, Total 7.1 g/dL (5.9-8.4); Sodium Level 137 mmol/L (133-145); Total Bilirubin 0.63 mg/dL (0.00-1.30)
[2024-11-03 11:24] LABS: Pro- Brain NATRIURETIC PEPTIDE 281 pg/mL (<=1800)
[2024-11-03 11:42] VITALS: BP 97/79; PULSE 77; RESP 19; O2SAT 97
[2024-11-03 12:01] VITALS: BP 103/59; PULSE 76; RESP 19; TEMP 36.6; O2SAT 97
== END 2024-11-03 12:12 | disposition home or self-care (01) ==
PROVIDERS: Emergency Provider Emergency Medicine; PCP Family Medicine; Visit Provider Emergency Medicine
DX: U07.1 COVID-19 (principal); I10 Essential (primary) hypertension; Z79.899 Other long term (current) drug therapy
CPT/HCPCS: 71046; 80053; 83880; 85025; 87631; 93005; 99285; A4216